=== PATIENT | male | born 1960 | race Caucasian/White ===

== ENCOUNTER 2019-01-27 23:49 | Inpatient (IN) | payer OTHER ==
[2019-01-28] MEDS ORDERED: CLOPIDOGREL 75 MG TAB PO STA
[2019-01-28] MEDS ORDERED: ATORVASTATIN 40 MG TAB PO STA (00:02)
--- NOTE | 2019-01-28 00:04 | ED ---
General Adult HPI - General Chief complaint: Chest Pain Stated complaint: stemi Time Seen by Provider: 01/27/19 23:58 Source: patient, EMS, RN notes reviewed Mode of arrival: EMS Limitations: no limitations - History of Present Illness Initial comments: Chief complaint and history of present illness this is a 58-year-old male was sent from [facility] because of an acute anteroseptal infarct. While that facility the patient received heparin, aspirin, nitroglycerin and morphine. Around emergency room he was given Plavix and Lipitor here. The patient continues have discomfort. Patient reports the pain comes and goes. Initially the discomfort started at 6:30 PM diaphoretic and retrosternal to the left side of the chest. The patient then went to [facility] at approximately 9 PM and EKG showed evidence of acute NH. The ER physician there spoke with Dr. Carlos PATIENT for transfer here to the emergency room. Currently the patient is being held in emergency room until the cardiac Bench Worker Apprentice is available. Is currently occupied by the patient having cardiac cath. - Related Data Allergies Allergy/AdvReac Type Severity Reaction Status Date / Time Penicillins Allergy Unknown Verified 01/27/19 23:59 Review of Systems ROS Statement: Those systems with pertinent positive or pertinent negative responses have been documented in the HPI. Review of systems. Patient denies any headache or visual acuity changes he has on-again off-again chest pain increases when he talks. Most on the left side. No longer diaphoretic going was initially. No radiation of pain. No GI/ complaints no neuro deficits. The patient's alert and oriented answer questions appropriately. Patient reports she's never had chest pain like this. Denies any previous heart issues. Patient denies any chronic medical problems. Surgeries patient had significant abdominal surgery within his country of origin, in [place]. He did not answer what kind of surgery was done. Family history noncontributory. ALLERGIES noted above penicillins which causes a rash. ROS Other: All systems not noted in ROS Statement are negative. Past Medical History Past Medical History: No Reported History History of Any Multi-Drug Resistant Organisms: None Reported Additional Past Surgical History / Comment(s): bilateral knee, abd sx when child Past Psychological History: No Psychological Hx Reported Smoking Status: Current every day smoker Past Alcohol Use History: Occasional Past Drug Use History: None Reported General Exam - General Exam Comments Initial Comments: General: The patient is awake and alert, transferred here from her [facility] for cardiac catheterization for acute STEMI. Temperature 98.9 pulse 105 respiratory rate 18 pulse ox 97% room air blood pressure 120/78 Eye: Pupils are equal, round and reactive to light, extra-ocular movements are intact; there is normal conjunctiva bilaterally. No signs of icterus. Ears, nose, mouth and throat: There are moist mucous membranes and no oral lesions. Neck: The neck is supple, there is no tenderness Cardiovascular: There is a regular rate and rhythm. No murmur, rub or gallop is appreciated. Patient's EKG continues to show acute anteroseptal infarct with ST elevation, patient's chest pain continues but significantly less than a was initially. Respiratory: Lungs are clear to auscultation, respirations are non-labored, breath sounds are equal. No wheezes, stridor, rales, or rhonchi. Gastrointestinal: Soft, non-distended, non-tender abdomen without masses or organomegaly noted. There is no rebound or guarding present. No CVA tenderness. Bowel sounds are unremarkable. Large suprapubic healed abdominal surgical wound. Back: There is no tenderness to palpation in the midline. There is no obvious deformity. No rashes noted. Musculoskeletal: Normal ROM, no tenderness, There is no pedal edema. There is no calf tenderness or swelling. Sensation intact. Pulses equal bilaterally 2+. Neurological: CN II-XII intact, There are no obvious motor or sensory deficits. Coordination appears grossly intact. Speech is normal. No neuro deficits Skin: Skin is warm and dry and no rashes or lesions are noted. Psychiatric: Cooperative, appropriate mood & affect, normal judgment. Limitations: no limitations Course Vital Signs 01/27/19 01/27/19 01/28/19 23:52 23:53 00:00 Temperature 98.9 F Pulse Rate 105 H 112 H 109 H Respiratory 18 19 8 L Rate Blood Pressure 120/78 120/78 O2 Sat by Pulse 97 97 99 Oximetry EKG Findings - EKG Comments: EKG Findings:: EKG was done and reviewed at 2355 showing sinus tachycardia with occasional PVC and ST elevation in anterolateral lateral leads. Rate 104 SC interval is 156 QRS 124 QT 370 QTc 46. This EKG was similar to 1 done at the [facility] showing acute anterior lateral NH. Dr. England Medical Decision Making - Medical Decision Making To call decision making; this is a 58-year-old male sent for [facility] because of acute anterolateral NH. The patient's been stable upon arrival and remains chest pain-free except for occasional short episodes of discomfort. Chest x-ray is done reviewed radiologist his impression is is no well-defined airspace disease at the right lower lobe. Linear opacities in the retrocardiac region probably represent subsegmental atelectasis. Normal mariel and cardiomediastinal silhouette. Normal trachea. No pleural effusion or pneumothorax. Impression; ill-defined airspace disease at the right lower lobe. Consider atelectasis versus infiltrate. Patient is afebrile, denies cough. Lungs are essentially clear to auscultation. Dr. England . - Lab Data Result diagrams: 01/27/19 23:57 01/27/19 23:57 Lab Results 01/27/19 01/27/19 01/27/19 Range/Units 23:57 23:57 23:57 WBC 17.0 H (3.8-10.6) k/uL RBC 4.69 (4.30-5.90) m/uL Hgb 14.3 (13.0-17.5) gm/dL Hct 45.8 (39.0-53.0) % MCV 97.6 (80.0-100.0) fL MCH 30.5 (25.0-35.0) pg MCHC 31.3 (31.0-37.0) g/dL RDW 13.2 (11.5-15.5) % Plt Count 199 (150-450) k/uL PT 10.4 (9.0-12.0) sec INR 1.0 (<1.2) APTT 38.9 H (22.0-30.0) sec Sodium 140 (137-145) mmol/L Potassium 3.5 (3.5-5.1) mmol/L Chloride 107 (98-107) mmol/L Carbon Dioxide 23 (22-30) mmol/L Anion Gap 10 mmol/L BUN 20 (9-20) mg/dL Creatinine 0.84 (0.66-1.25) mg/dL Est GFR (CKD-EPI)AfAm >90 (>60 ml/min/1.73 sqM) Est GFR (CKD-EPI)NonAf >90 (>60 ml/min/1.73 sqM) Glucose 177 H (74-99) mg/dL Calcium 9.6 (8.4-10.2) mg/dL Total Bilirubin 0.7 (0.2-1.3) mg/dL AST 57 (17-59) U/L ALT 67 (21-72) U/L Alkaline Phosphatase 91 (38-126) U/L Total Creatine Kinase (55-170) U/L Total Protein 7.3 (6.3-8.2) g/dL Albumin 4.2 (3.5-5.0) g/dL 01/27/19 Range/Units 23:57 WBC (3.8-10.6) k/uL RBC (4.30-5.90) m/uL Hgb (13.0-17.5) gm/dL Hct (39.0-53.0) % MCV (80.0-100.0) fL MCH (25.0-35.0) pg MCHC (31.0-37.0) g/dL RDW (11.5-15.5) % Plt Count (150-450) k/uL PT (9.0-12.0) sec INR (<1.2) APTT (22.0-30.0) sec Sodium (137-145) mmol/L Potassium (3.5-5.1) mmol/L Chloride (98-107) mmol/L Carbon Dioxide (22-30) mmol/L Anion Gap mmol/L BUN (9-20) mg/dL Creatinine (0.66-1.25) mg/dL Est GFR (CKD-EPI)AfAm (>60 ml/min/1.73 sqM) Est GFR (CKD-EPI)NonAf (>60 ml/min/1.73 sqM) Glucose (74-99) mg/dL Calcium (8.4-10.2) mg/dL Total Bilirubin (0.2-1.3) mg/dL AST (17-59) U/L ALT (21-72) U/L Alkaline Phosphatase (38-126) U/L Total Creatine Kinase 171 H (55-170) U/L Total Protein (6.3-8.2) g/dL Albumin (3.5-5.0) g/dL Disposition Clinical Impression: ST elevation myocardial infarction (STEMI) Disposition: ADMITTED IP TO THIS HOSP Condition: Serious Is patient prescribed a controlled substance at d/c from ED?: No Referrals: Art Younger MD [Primary Care Provider] - 1-2 days
[2019-01-28 00:10] LABS: HCT 45.8 % (39.0-53.0); HGB 14.3 gm/dL (13.0-17.5); MCH 30.5 pg (25.0-35.0); MCHC 31.3 g/dL (31.0-37.0); MCV 97.6 fL (80.0-100.0); Mean Platelet Volume 6.8; Platelet Count 199 k/uL (150-450); RBC 4.69 m/uL (4.30-5.90); RDW 13.2 % (11.5-15.5)
[2019-01-28 00:14] LABS: ALT 67 U/L (21-72); AST 57 U/L (17-59); Albumin 4.2 g/dL (3.5-5.0); Alkaline Phosphatase 91 U/L (38-126); Anion Gap 10 mmol/L; Blood Urea Nitrogen 20 mg/dL (9-20); Calcium 9.6 mg/dL (8.4-10.2); Carbon Dioxide 23 mmol/L (22-30); Chloride 107 mmol/L (98-107); Glucose 177 mg/dL (74-99); Potassium 3.5 mmol/L (3.5-5.1); Sodium 140 mmol/L (137-145); Total Bilirubin 0.7 mg/dL (0.2-1.3); Total Protein 7.3 g/dL (6.3-8.2)
[2019-01-28] MEDS ORDERED: NITROGLYCERIN-D5W PMX 50 MG in DEXTROSE/WATER 1 250ML.BAG IV ONE (00:17)
--- NOTE | 2019-01-28 00:19 | XR ---
EXAM: XR Chest, 1 View CLINICAL HISTORY: ITS.REASON XR Reason: chest pain TECHNIQUE: Frontal view of the chest. COMPARISON: No relevant prior studies available. FINDINGS: Lungs: Ill-defined airspace disease at the right lower lobe. Linear opacities in the retrocardiac region probably represent subsegmental atelectasis. Normal mariel and cardiomediastinal silhouette. Normal trachea. Pleural space: No pleural effusion or pneumothorax. Heart: See above. Mediastinum: See above. Bones/joints: Bones are unremarkable for age. IMPRESSION: Ill-defined airspace disease at the right lower lobe. Consider atelectasis versus infiltrate.
[2019-01-28 00:22] LABS: Partial Thromboplastin Time 38.9 sec (22.0-30.0); Prothrombin Time 10.4 sec (9.0-12.0)
[2019-01-28] MEDS: HEPARIN SOD,PORK IN 0.45% NACL 25,000 UNIT in 0.45% NACL 1 250ML.BAG IV SCH ×2 (00:30→23:29)
[2019-01-28 00:37] LABS: Creatine Kinase MB 13.6 ng/mL (0.0-2.4)
[2019-01-28] MEDS: SODIUM CHLORIDE 0.9% 1,000 ML IV STA ×2 (00:42→02:57)
[2019-01-28 00:45] LABS: Troponin I 0.628 ng/mL (0.000-0.034)
[2019-01-28 00:57] LABS: Band Neutrophils % 13 %; Lymphocytes # (M) 1.19 k/uL (1.0-4.8); Monocytes # (M) 0.85 k/uL (0-1.0); Neutrophils % (M) 75 %; Nucleated Red Blood Cells 0 /100 WBC (0-0); Total Cells Counted 100
[2019-01-28] MEDS ORDERED: fentaNYL (PF) 50 MCG/ML 2 ML AMP ONE (01:02)
[2019-01-28] MEDS ORDERED: LIDOCAINE 1% INJ 10MG/ML (20 ML MDV) ONE (01:02)
[2019-01-28] MEDS ORDERED: fentaNYL (PF) 50 MCG/ML 2 ML AMP IV ONE (01:07)
[2019-01-28] MEDS ORDERED: MIDAZOLAM 2 MG/2 ML VIAL IV ONE (01:07)
[2019-01-28] MEDS ORDERED: LIDOCAINE 1% INJ 10MG/ML (20 ML MDV) SQ ONE (01:07)
[2019-01-28] MEDS ORDERED: BIVALIRUDIN BOLUS 250 MG/50 ML IV ONE (01:17)
[2019-01-28] MEDS ORDERED: IV FLUID CONTINUATION 800 ML IV ONE (01:18)
[2019-01-28] MEDS ORDERED: BIVALIRUDIN 250 MG in SODIUM CHLORIDE 0.9% 37 ML IV ONE (01:18)
[2019-01-28] MEDS ORDERED: METOPROLOL TARTRATE 5 MG/5 ML VIAL IVP ONE (01:22)
[2019-01-28] MEDS ORDERED: NITROGLYCERIN 1000MCG/10ML SYRINGE INTRACORON ONE (01:24)
[2019-01-28] MEDS ORDERED: HYDROmorphone 2 MG/ML 1 ML SYRINGE IVP ONE (01:25)
[2019-01-28] MEDS ORDERED: NOREPINEPHRINE 4 MG in SODIUM CHLORIDE 0.9% 250 ML IV ONE (01:39)
[2019-01-28] MEDS ORDERED: niCARdipine Syringe (1,000 mcg/10 mL) INTRACORON ONE (01:41)
[2019-01-28] MEDS ORDERED: IOPAMIDOL-370 125ML BTL INJ ONE (01:44)
[2019-01-28] MEDS ORDERED: FUROSEMIDE 10 MG/ML 4 ML VIAL ONE (01:50)
[2019-01-28] MEDS ORDERED: FUROSEMIDE 10 MG/ML 4 ML VIAL IV ONE (01:53)
[2019-01-28] MEDS ORDERED: IOPAMIDOL-370 100ML BTL INJ ONE (01:53)
[2019-01-28] MEDS ORDERED: ATROPINE SULFATE 0.1 MG/ML 10ML SYRINGE IV PRN (02:00)
[2019-01-28] MEDS ORDERED: MAG HYDROX/AL HYDROX/SIMETH 30 ML CUP PO PRN (02:00)
[2019-01-28] MEDS ORDERED: RX INFO: IV CONTRAST WAS GIVEN 1 EACH MISC MISCELLANE PRN (02:00)
[2019-01-28] MEDS ORDERED: ZOLPIDEM 5 MG TAB PO PRN (02:00)
[2019-01-28] MEDS ORDERED: SODIUM CHLORIDE 0.9% 1,000 ML IV SCH (02:00)
[2019-01-28] MEDS ORDERED: NITROGLYCERIN SL TABS 0.4 MG TAB SUBLINGUAL PRN (02:00)
--- NOTE | 2019-01-28 02:07 | P.CRDCN ---
History of Present Illness Consult date: 01/28/19 Chief complaint: Chest pain History of present illness: This is a pleasant 58-year-old gentleman with a past medical history significant for hypertension as well as significant history of smoking who was transferred from the emergency room at [facility] to [facility] for further management of acute anterior ST patient myocardial infarction. He was in his usual state of health until earlier today when he was sitting home watching TV and suddenly developed an episode of cold sweats. Subsequently he started experiencing chest discomfort, across the chest, as a burning sensation, without any radiation to the arm or neck or shoulders or jaw. Because of that he decided to go to the emergency room. In the ER he was found to be in acute anterior ST patient myocardial infarction. 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 He underwent successful aspiration thrombectomy as well as successful stenting of the mid left anterior descending artery using 1 drug-eluting stent with a good angiographic results by the end and without any complication. Also the patient was found to have critical disease involving the ostial of ramus intermedius coronary artery. By the end of the procedure, he was chest pain-free. He was hemodynamically slightly unstable with a low blood pressure and he was on a small dose of Sudafed. We were trying to come down with the Levaquin. By the end of the procedure. Please note that the patient has significant history of smoking. He smoked about 1.5 pack of cigarettes a very vague. Past Medical History Past Medical History: No Reported History History of Any Multi-Drug Resistant Organisms: None Reported Additional Past Surgical History / Comment(s): bilateral knee, abd sx when child Past Psychological History: No Psychological Hx Reported Smoking Status: Current every day smoker Past Alcohol Use History: Occasional Past Drug Use History: None Reported Medications and Allergies Allergies Allergy/AdvReac Type Severity Reaction Status Date / Time Penicillins Allergy Unknown Verified 01/27/19 23:59 Physical Exam Vitals: Vital Signs Temp Pulse Resp BP Pulse Ox 01/28/19 00:00 109 H 8 L 120/78 99 01/27/19 23:53 112 H 19 97 01/27/19 23:52 98.9 F 105 H 18 120/78 97 Intake and Output 01/27/19 01/27/19 01/28/19 14:59 22:59 06:59 Intake Total 285 Balance 285 Intake: IV 285 Other: Weight 85.457 kg - Constitutional General appearance: no acute distress - Respiratory Respiratory: bilateral: CTA - Cardiovascular Rhythm: regular Heart sounds: normal: S1, S2 Results 01/27/19 23:57 01/27/19 23:57 Cardiac Enzymes 01/27/19 01/27/19 Range/Units 23:57 23:57 AST 57 (17-59) U/L CK-MB (CK-2) 13.6 H (0.0-2.4) ng/mL Troponin I 0.628 H* (0.000-0.034) ng/mL Coagulation 01/27/19 Range/Units 23:57 PT 10.4 (9.0-12.0) sec APTT 38.9 H (22.0-30.0) sec CBC 01/27/19 Range/Units 23:57 WBC 17.0 H (3.8-10.6) k/uL RBC 4.69 (4.30-5.90) m/uL Hgb 14.3 (13.0-17.5) gm/dL Hct 45.8 (39.0-53.0) % Plt Count 199 (150-450) k/uL Comprehensive Metabolic Panel 01/27/19 Range/Units 23:57 Sodium 140 (137-145) mmol/L Potassium 3.5 (3.5-5.1) mmol/L Chloride 107 (98-107) mmol/L Carbon Dioxide 23 (22-30) mmol/L BUN 20 (9-20) mg/dL Creatinine 0.84 (0.66-1.25) mg/dL Glucose 177 H (74-99) mg/dL Calcium 9.6 (8.4-10.2) mg/dL AST 57 (17-59) U/L ALT 67 (21-72) U/L Alkaline Phosphatase 91 (38-126) U/L Total Protein 7.3 (6.3-8.2) g/dL Albumin 4.2 (3.5-5.0) g/dL Current Medications Generic Name Dose Route Start Last Admin Trade Name Freq PRN Reason Stop Dose Admin Nitroglycerin/Dextrose 50 mg/ 250 mls @ 3 mls/hr 01/28/19 00:17 01/28/19 00:46 IV Solution IV 01/29/19 00:16 10 mcg/min .Q24H ONE 3 mls/hr Administration Protocol 10 MCG/MIN Heparin Sodium/Sodium Chloride 250 mls @ 9.4 mls/hr 01/28/19 00:15 01/28/19 00:30 25,000 unit/ Sodium Chloride IV 11 units/kg/hr .Q24H ABIGAIL 9.4 mls/hr Administration Protocol 11 UNITS/KG/HR Sodium Chloride 1,000 mls @ 20 mls/hr 01/28/19 00:15 01/28/19 00:42 Saline 0.9% IV 01/29/19 00:14 20 mls/hr .Q24H STA Administration Intake and Output 01/27/19 01/27/19 01/28/19 14:59 22:59 06:59 Intake Total 285 Balance 285 Intake: IV 285 Other: Weight 85.457 kg Patient Weight 01/28/19 06:59 Weight 85.457 kg 01/27/19 23:57 01/27/19 23:57 Assessment and Plan Assessment: Assessment #[address] patient myocardial infarction #2 status post a stenting of the left anterior descending artery #3 critical disease involving the ostial of ramus intermedius #4 marginally low blood pressure #5 significant history of smoking Plan #1 dual antiplatelet therapy #2 aggressive cholesterol control #3 risk factors modifications #4 anti-ischemic medications #5 obtain an echocardiogram was Doppler #6 follow-up with the patient. Thank you for allowing us participate in his care
[2019-01-28 02:57] VITALS: BMI 30.4
[2019-01-28 02:57] LABS: Glucose,Whole Blood 187 mg/dL (75-99)
[2019-01-28] MEDS ORDERED: NALOXONE 0.4 MG/ML 1 ML VIAL IV PRN (03:21)
[2019-01-28 05:09] LABS: Basophils % (A) 0 %; Eosinophils % (A) 0 %; HCT 43.4 % (39.0-53.0); HGB 13.6 gm/dL (13.0-17.5); Lymphocytes # (A) 0.4 k/uL (1.0-4.8); Lymphocytes % (A) 3 %; MCH 31.2 pg (25.0-35.0); MCHC 31.3 g/dL (31.0-37.0); MCV 99.9 fL (80.0-100.0); Mean Platelet Volume 6.9; Monocytes # (A) 0.4 k/uL (0-1.0); Monocytes % (A) 2 %; Neutrophils # (A) 16.6 k/uL (1.3-7.7); Neutrophils % (A) 94 %; Platelet Count 188 k/uL (150-450); RBC 4.34 m/uL (4.30-5.90); RDW 13.4 % (11.5-15.5); WBC 17.6 k/uL (3.8-10.6)
[2019-01-28 05:12] LABS: Anion Gap 10 mmol/L; Blood Urea Nitrogen 17 mg/dL (9-20); Calcium 8.9 mg/dL (8.4-10.2); Carbon Dioxide 22 mmol/L (22-30); Chloride 105 mmol/L (98-107); Glucose 222 mg/dL (74-99); Magnesium 1.7 mg/dL (1.6-2.3); Phosphorus 3.1 mg/dL (2.5-4.5); Potassium 4.1 mmol/L (3.5-5.1); Sodium 137 mmol/L (137-145)
[2019-01-28] MEDS: MAGNESIUM SULFATE-D5W PMX 1 GM in DEXTROSE/WATER 1 100ML.BAG IVPB SCH ×2 (07:00→08:43)
[2019-01-28 07:07] LABS: Glucose,Whole Blood 193 mg/dL (75-99)
--- NOTE | 2019-01-28 07:43 | CC ---
CARDIAC CATHETERIZATION REPORT CARDIAC CATHETERIZATION AND PERCUTANEOUS CORONARY INTERVENTION DATE OF SERVICE: January 28, 2019 PERFORMING PHYSICIAN: Josué Gomez M.D., electrical tests supervisor. PROCEDURE PERFORMED: 1. Selective right and left coronary angiogram. 2. Left heart catheterization. 3. Successful stenting of the mid left anterior descending artery using 3.0 x 33 mm Xience drug-eluting stent with an excellent angiographic results and reduction of stenosis from 100% to 0%. 4. An aspiration thrombectomy from the left anterior descending artery. INDICATION: This is a 58-year-old gentleman with history of hypertension and significant history of smoking who presented to the emergency room at [facility] with chest discomfort and was diagnosed with acute anterior ST-elevation myocardial infarction. He was transferred emergently to [facility] for emergent heart catheterization and percutaneous coronary intervention. APPROACH: Right common femoral artery. COMPLICATION: None. LEVEL OF SEDATION: Moderate with sedation length of 46 minutes. PROCEDURE DESCRIPTION: After obtaining an informed consent, the patient was brought to the laboratory equipment installer. The right common femoral artery was cannulated using micropuncture technique and a micropuncture wire passed easily then I placed a 6-Honduran sheath in the right common femoral artery. After that I did engage the left main using an XP35 LAD guide. 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 I did intervene on the LAD. After that, I did selective right coronary angiogram using JR4 catheter. Left heart catheterization was performed using 6-Honduran pigtail catheter. The procedure was completed without any complication. SELECTIVE CORONARY ANGIOGRAM: 1. The right coronary artery is a large caliber vessel and it is a dominant vessel. The proximal RCA appeared to be angiographically normal. The mid RCA has mild disease only and RCA distally appeared to have mild disease only and bifurcates into PDA and PLV branches, both appeared to be angiographically normal. 2. The left main is angiographically normal. It bifurcates into left circumflex, ramus intermedius, and left anterior descending artery. 3. The left circumflex is a large caliber vessel and is a codominant vessel. The left circumflex itself appeared to have mild disease only. In the very proximal portion, it gives rise into OM 1, which appears to be angiographically normal. 4. The ramus intermedius has a critical lesion appeared to be from the origin from the left main. 5. The LAD is 100% occluded in the midportion. HEMODYNAMICS: The left ventricular end-diastolic pressure was 30 mmHg without significant gradient across the aortic valve. PCI OF THE LAD: Anticoagulation was initiated using Angiomax. Subsequently I did after engaging the left main using an XP35 LAD guide, I did cross the acute total occlusion of the mid LAD using a run-through wire. After that I did aspiration thrombectomy with extraction of thrombus. After that I did balloon angioplasty using 2.5 x 12 mm balloon before I deployed 3.0 x 33 mm Xience drug-eluting stent where the stent was positioned under fluoroscopy guidance and deployed under 14 atmospheres for 20 seconds with the following angiogram showing excellent angiographic results and the procedure was completed without any complication. CONCLUSION: 1. Acute anterior ST-elevation myocardial infarction. 2. Acute total occlusion of the mid left anterior descending artery. 3. Successful stenting of the mid left anterior descending artery as described above. 4. Critical the disease involving the ramus intermedius coronary artery. POSTPROCEDURE MANAGEMENT: 1. Dual antiplatelet therapy. 2. Risk factors modifications. 3. Follow up with the patient. MMODL / IJN: [id number] /
[2019-01-28] MEDS: ASPIRIN 325 MG TAB PO SCH (08:43)
[2019-01-28] MEDS: METOPROLOL TARTRATE 25 MG TAB PO SCH ×2 (08:43→20:00)
[2019-01-28 12:31] LABS: Glucose,Whole Blood 139 mg/dL (75-99)
[2019-01-28 13:48] LABS: Cholesterol 166 mg/dL (<200); HDL Cholesterol 42 mg/dL (40-60); LDL Cholesterol,Calculated 102 mg/dL (0-99); Triglycerides 110 mg/dL (<150)
[2019-01-28 17:33] LABS: Glucose,Whole Blood 106 mg/dL (75-99)
--- NOTE | 2019-01-28 18:19 | HP ---
HISTORY AND PHYSICAL CHIEF COMPLAINT: Chest pain. HISTORY OF PRESENT ILLNESS: This is the first admission of this 58-year-old gentleman who came to the emergency room with a history of acute onset of sharp, burning anterior chest pain associated with shortness of breath and diaphoresis. He was determined to have an acute OK and was taken to the lab animal technologist, where he was found to have occlusion of the LAD, and this was opened and stented. REVIEW OF SYSTEMS: He has had no CVAs, hypertension, chest pain other than that, cough, hemoptysis, shortness of breath, murmurs, rheumatic fever, orthopnea, PND, abdominal pain, vomiting, diarrhea, melena, hematochezia, jaundice, hepatitis, cirrhosis, hematuria, renal failure, frequency, urgency, dysuria, etc. Past medical history, family history, and personal and social histories reveal that he is not on any medication. He is ALLERGIC TO PENICILLIN. He has had a procedure on his knee. He smokes about a pack of cigarettes a day. PHYSICAL EXAMINATION: Blood pressure 140/92 with a pulse of 98, respirations of 34, and he is afebrile. In general, he appeared to be well developed, well nourished, in no acute distress. Skin color was normal. Skin was warm, dry. Lymph nodes were not enlarged. Head, ears, eyes, nose, mouth and throat were normal. Neck veins were not distended. Thyroid was not enlarged. Chest was clear. Cardiac exam was normal. Abdomen was soft, nontender. Extremities were normal. Neurologically he was intact. IMPRESSION: Acute myocardial infarction. PLAN: 1. Bed rest. 2. IV fluids. 3. Cardiology consult. 4. Cardiac cath with stenting of the RCA. 5. Lipid profile. 6. Hemoglobin A1c. 7. Counseled to stop smoking, lose weight and exercise. MMODL / IJN: [id number] /
--- NOTE | 2019-01-28 19:45 | P.PN ---
Subjective Patient is doing well. No chest discomfort he is able to lie flat in bed. No dizziness lightheadedness. Access sites have healed well Blood pressure 190 no 87 mmHg respirations 20 pulse rate in the 90s afebrile Breath sounds are clear no rhonchi no crackles Heart sounds S1 and S2 are normal Abdomen soft nontender Extremities are warm no edema Impression Acute myocardial infarction status post coronary stenting Severe LV dysfunction with a large anterior wall infarct on 2-D echo Continue aspirin Plavix statins Continue beta blockers Tomorrow I will try maximizing his medications as long as blood pressure can tolerate it Objective - Vital Signs Vital signs: Vital Signs Temp 98.6 F 01/28/19 16:00 Pulse 96 01/28/19 19:00 Resp 21 01/28/19 19:00 BP 119/87 01/28/19 19:00 Pulse Ox 94 L 01/28/19 19:00 Intake & Output 01/28/19 01/28/19 01/29/19 06:59 18:59 06:59 Intake Total 585 1375 Output Total 250 0 Balance 585 1125 0 Weight 85.457 kg 85.457 kg Intake: IV 585 655 Magnesium Sulfate-D5w Pmx 200 1 gm In Dextrose/Water 1 100ml.bag @ 100 mls/hr IVPB Q1H ABIGAIL Rx#: [id number] Sodium Chloride 0.9% 1, 300 455 000 ml @ 75 mls/hr IV . [id number] ABIGAIL Rx#:[id number] Oral 720 Output: Urine 250 0 Other: Voiding Method Urinal # Voids 1 1 0 - Labs CBC & Chem 7: 01/28/19 04:44 01/28/19 04:44 Labs: Abnormal Lab Results - Last 24 Hours (Table) 01/27/19 01/27/19 01/27/19 Range/Units 23:57 23:57 23:57 WBC 17.0 H (3.8-10.6) k/uL Neutrophils # (1.3-7.7) k/uL Neutrophils # (Manual) 14.90 H (1.3-7.7) k/uL Lymphocytes # (1.0-4.8) k/uL APTT 38.9 H (22.0-30.0) sec Glucose 177 H (74-99) mg/dL POC Glucose (mg/dL) (75-99) mg/dL Total Creatine Kinase (55-170) U/L CK-MB (CK-2) (0.0-2.4) ng/mL Troponin I (0.000-0.034) ng/mL LDL Cholesterol, Calc (0-99) mg/dL 01/27/19 01/28/19 01/28/19 Range/Units 23:57 02:20 04:44 WBC 17.6 H (3.8-10.6) k/uL Neutrophils # 16.6 H (1.3-7.7) k/uL Neutrophils # (Manual) (1.3-7.7) k/uL Lymphocytes # 0.4 L (1.0-4.8) k/uL APTT (22.0-30.0) sec Glucose (74-99) mg/dL POC Glucose (mg/dL) 187 H (75-99) mg/dL Total Creatine Kinase 171 H (55-170) U/L CK-MB (CK-2) 13.6 H (0.0-2.4) ng/mL Troponin I 0.628 H* (0.000-0.034) ng/mL LDL Cholesterol, Calc (0-99) mg/dL 01/28/19 01/28/19 01/28/19 Range/Units 04:44 04:44 07:03 WBC (3.8-10.6) k/uL Neutrophils # (1.3-7.7) k/uL Neutrophils # (Manual) (1.3-7.7) k/uL Lymphocytes # (1.0-4.8) k/uL APTT (22.0-30.0) sec Glucose 222 H (74-99) mg/dL POC Glucose (mg/dL) 193 H (75-99) mg/dL Total Creatine Kinase (55-170) U/L CK-MB (CK-2) (0.0-2.4) ng/mL Troponin I (0.000-0.034) ng/mL LDL Cholesterol, Calc 102 H (0-99) mg/dL 01/28/19 01/28/19 Range/Units 12:17 17:29 WBC (3.8-10.6) k/uL Neutrophils # (1.3-7.7) k/uL Neutrophils # (Manual) (1.3-7.7) k/uL Lymphocytes # (1.0-4.8) k/uL APTT (22.0-30.0) sec Glucose (74-99) mg/dL POC Glucose (mg/dL) 139 H 106 H (75-99) mg/dL Total Creatine Kinase (55-170) U/L CK-MB (CK-2) (0.0-2.4) ng/mL Troponin I (0.000-0.034) ng/mL LDL Cholesterol, Calc (0-99) mg/dL
[2019-01-28] MEDS: ATORVASTATIN 80 MG TAB PO SCH (20:00)
[2019-01-28 22:57] LABS: Hemoglobin A1C 5.7 % (4.0-6.0)
[2019-01-29] MEDS ORDERED: CLOPIDOGREL 75 MG TAB PO SCH (02:02)
[2019-01-29 05:42] LABS: Basophils % (A) 0 %; Eosinophils % (A) 0 %; HCT 42.6 % (39.0-53.0); HGB 13.7 gm/dL (13.0-17.5); Lymphocytes # (A) 1.4 k/uL (1.0-4.8); Lymphocytes % (A) 11 %; MCH 31.2 pg (25.0-35.0); MCHC 32.3 g/dL (31.0-37.0); MCV 96.6 fL (80.0-100.0); Mean Platelet Volume 7.3; Monocytes # (A) 0.6 k/uL (0-1.0); Monocytes % (A) 5 %; Neutrophils # (A) 10.6 k/uL (1.3-7.7); Neutrophils % (A) 84 %; Platelet Count 167 k/uL (150-450); RDW 13.4 % (11.5-15.5); WBC 12.7 k/uL (3.8-10.6)
[2019-01-29 05:53] LABS: Anion Gap 7 mmol/L; Blood Urea Nitrogen 15 mg/dL (9-20); Calcium 8.7 mg/dL (8.4-10.2); Carbon Dioxide 27 mmol/L (22-30); Chloride 102 mmol/L (98-107); Glucose 113 mg/dL (74-99); Magnesium 1.9 mg/dL (1.6-2.3); Phosphorus 2.2 mg/dL (2.5-4.5); Potassium 4.1 mmol/L (3.5-5.1); Sodium 136 mmol/L (137-145)
[2019-01-29] MEDS ORDERED: Phosphorus Replacement Protoco 1 EACH MISC MISCELLANE PRN (06:32)
[2019-01-29] MEDS: MAGNESIUM SULFATE-D5W PMX 1 GM in DEXTROSE/WATER 1 100ML.BAG IVPB SCH ×2 (06:44→08:10)
[2019-01-29] MEDS ORDERED: SODIUM PHOSPHATE 10 MMOL in SODIUM CHLORIDE 0.9% 250 ML IVPB ONE (07:00)
[2019-01-29 07:12] LABS: Glucose,Whole Blood 127 mg/dL (75-99)
[2019-01-29] MEDS: ASPIRIN 325 MG TAB PO SCH (08:11)
[2019-01-29] MEDS: CLOPIDOGREL 75 MG TAB PO SCH (08:11)
[2019-01-29] MEDS: METOPROLOL TARTRATE 25 MG TAB PO SCH (08:11)
[2019-01-29 11:36] LABS: Glucose,Whole Blood 113 mg/dL (75-99)
[2019-01-29] MEDS ORDERED: METOPROLOL TARTRATE 25 MG TAB PO STA (12:25)
--- NOTE | 2019-01-29 13:51 | P.PN ---
Subjective Patient is doing better. He denies any chest discomfort dizziness lightheadedness or palpitations. He wants to go home and I asked him not to do that Blood pressure 180/67 mmHg normal respirations pulse rate 89 beats a minute Breath sounds are clear no rhonchi no crackles Heart sounds are normal normal S1 normal S2 no murmurs or gallops no rub Abdomen is soft Except is warm Patient is ambulating in the room Blood pressure 120/77 mmHg and 118/67 mmHg Impression severe ischemic cardiopathy myopathy Recent large anterior wall infarct Plan Increase metoprolol to 50 g twice daily If his blood pressure remained stable then tomorrow we will start yadira inhibitors Start spironolactone Continue dual antiplatelet therapy with Plavix and aspirin Continue atorvastatin 80 mg by mouth daily line watch for any ventricular arrhythmias This patient needs to be monitored on telemetry and his medications maximized. Objective - Vital Signs Vital signs: Vital Signs Temp 98.9 F 01/29/19 08:00 Pulse 89 01/29/19 13:00 Resp 18 01/29/19 13:00 BP 118/67 01/29/19 13:00 Pulse Ox 95 01/29/19 12:00 Intake & Output 01/28/19 01/29/19 01/29/19 18:59 06:59 18:59 Intake Total 1375 850 Output Total 250 400 450 Balance 1125 -400 400 Weight 85.457 kg 85.1 kg Intake: IV 655 100 Magnesium Sulfate-D5w Pmx 200 100 1 gm In Dextrose/Water 1 100ml.bag @ 100 mls/hr IVPB Q1H ABIGAIL Rx#: [id number] Sodium Chloride 0.9% 1, 455 000 ml @ 75 mls/hr IV . [id number] ABIGAIL Rx#:[id number] Intake, IV Titration 300 Amount Magnesium Sulfate-D5w Pmx 100 1 gm In Dextrose/Water 1 100ml.bag @ 100 mls/hr IVPB Q1H ABIGAIL Rx#: [id number] Sodium Phosphate 10 mmol 200 In Sodium Chloride 0.9% 250 ml @ 125 mls/hr IVPB ONCE ONE Rx#:[id number] Oral 720 450 Output: Urine 250 400 450 Other: Voiding Method Toilet Toilet Toilet # Voids 1 0 0 # Bowel Movements 1 1 - Labs CBC & Chem 7: 01/29/19 04:13 01/29/19 04:13 Labs: Abnormal Lab Results - Last 24 Hours (Table) 01/28/19 01/29/19 01/29/19 Range/Units 17:29 04:13 04:13 WBC 12.7 H (3.8-10.6) k/uL Neutrophils # 10.6 H (1.3-7.7) k/uL Sodium 136 L (137-145) mmol/L Glucose 113 H (74-99) mg/dL POC Glucose (mg/dL) 106 H (75-99) mg/dL Phosphorus 2.2 L (2.5-4.5) mg/dL 01/29/19 01/29/19 Range/Units 07:08 11:32 WBC (3.8-10.6) k/uL Neutrophils # (1.3-7.7) k/uL Sodium (137-145) mmol/L Glucose (74-99) mg/dL POC Glucose (mg/dL) 127 H 113 H (75-99) mg/dL Phosphorus (2.5-4.5) mg/dL
[2019-01-29] MEDS: SPIRONOLACTONE 25 MG TAB PO SCH (14:26)
[2019-01-29] MEDS: METOPROLOL TARTRATE 50 MG TAB PO SCH (20:41)
[2019-01-29] MEDS: ATORVASTATIN 80 MG TAB PO SCH (20:41)
--- NOTE | 2019-01-29 21:56 | PN ---
PROGRESS NOTE DATE OF SERVICE: 01/29/2019 CHIEF COMPLAINT: Acute myocardial infarction. HISTORY OF PRESENT ILLNESS: This gentleman is doing well. He is comfortable, not have any problems. PHYSICAL EXAM: He is in sinus rhythm and blood pressure normal. Chest is clear. IMPRESSION: ST elevation myocardial infarction. PLAN: No change in program at this time and follow with Cardiology. MMODL / IJN: [id number] /
[2019-01-30] MEDS: HEPARIN SOD,PORK IN 0.45% NACL 25,000 UNIT in 0.45% NACL 1 250ML.BAG IV SCH (00:36)
[2019-01-30 05:26] LABS: Basophils % (A) 1 %; Eosinophils # (A) 0.2 k/uL (0-0.7); Eosinophils % (A) 3 %; HGB 12.9 gm/dL (13.0-17.5); Lymphocytes # (A) 2.1 k/uL (1.0-4.8); Lymphocytes % (A) 25 %; MCH 30.6 pg (25.0-35.0); MCHC 31.6 g/dL (31.0-37.0); MCV 96.9 fL (80.0-100.0); Mean Platelet Volume 7.3; Monocytes # (A) 0.5 k/uL (0-1.0); Monocytes % (A) 5 %; Neutrophils # (A) 5.4 k/uL (1.3-7.7); Neutrophils % (A) 65 %; Platelet Count 153 k/uL (150-450); RBC 4.22 m/uL (4.30-5.90); WBC 8.3 k/uL (3.8-10.6)
[2019-01-30 05:46] LABS: Anion Gap 5 mmol/L; Blood Urea Nitrogen 14 mg/dL (9-20); Calcium 8.6 mg/dL (8.4-10.2); Carbon Dioxide 29 mmol/L (22-30); Chloride 106 mmol/L (98-107); Glucose 95 mg/dL (74-99); Potassium 4.3 mmol/L (3.5-5.1); Sodium 140 mmol/L (137-145)
[2019-01-30] MEDS: CLOPIDOGREL 75 MG TAB PO SCH (08:37)
[2019-01-30] MEDS: ASPIRIN 325 MG TAB PO SCH (08:37)
[2019-01-30] MEDS: SPIRONOLACTONE 25 MG TAB PO SCH (08:38)
[2019-01-30] MEDS: METOPROLOL TARTRATE 50 MG TAB PO SCH ×2 (08:38→21:14)
--- NOTE | 2019-01-30 09:39 | CONS ---
CONSULTATION This is a 58-year-old gentleman who was admitted to hospital with acute myocardial infarction. He underwent emergent cardiac catheterization and angioplasty of mid LAD. This happened on 01/28/2019. Today patient is doing well and is free of symptoms. Denies chest pain, difficulty in breathing or palpitations. On exam, he is comfortable at rest. Vital signs are stable. There is no jugular venous distention. Chest exam reveals good air entry bilaterally. Heart exam reveals first and second heart sounds. No gallop. Abdomen is soft. Examination of extremities did not reveal any edema. Peripheral pulses are felt. Lab show that the hemoglobin is 12.9, platelet count is 153, creatinine is 0.96 MEDICATIONS: Patient is currently on aspirin, Lipitor, Plavix, Lopressor and Aldactone. I do not have an echo report in the chart. If one has not been done, we will obtain an echo on him. ASSESSMENT: Acute anterior wall myocardial infarction, status post catheterization and angioplasty of left anterior descending coronary artery. PLAN: Patient is doing well. He will continue with his current medications, and we should be able to discharge him home tomorrow. He can be transferred to telemetry. The patient has severe LV dysfunction secondary to a large anterior wall IA. MMODL / IJN: [id number] /
--- NOTE | 2019-01-30 17:06 | PN ---
PROGRESS NOTE CHIEF COMPLAINT: Status post VT. HISTORY OF PRESENT ILLNESS: This gentleman is doing well. He has had no pain, shortness of breath, etc. He is up and about. PHYSICAL EXAM: Chest is clear. Cardiac exam is normal. The abdomen is soft and nontender. Extremities are normal. IMPRESSION: Acute myocardial infarction. PLAN: He can be discharged when he is cleared by Cardiology, which may be tomorrow. MMODL / IJN: [id number] /
[2019-01-30] MEDS: ATORVASTATIN 80 MG TAB PO SCH (21:14)
[2019-01-31] MEDS: HEPARIN SOD,PORK IN 0.45% NACL 25,000 UNIT in 0.45% NACL 1 250ML.BAG IV SCH (03:04)
[2019-01-31] MEDS: ASPIRIN 325 MG TAB PO SCH (09:12)
[2019-01-31] MEDS: METOPROLOL TARTRATE 50 MG TAB PO SCH (09:12)
[2019-01-31] MEDS: SPIRONOLACTONE 25 MG TAB PO SCH (09:12)
[2019-01-31] MEDS: CLOPIDOGREL 75 MG TAB PO SCH (09:12)
[2019-01-31] MEDS ORDERED: LISINOPRIL 2.5 MG TAB PO SCH (09:30)
--- NOTE | 2019-01-31 10:42 | P.PN ---
Subjective This is a pleasant 58 showed male who is status post coronary artery stenting of the mid LAD with severe ischemic cardiomyopathy secondary to a large anterior wall myocardial infarction. He is seen and examined sitting up in the chair and is rather anxious to go home. He denies symptoms of chest discomfort, shortness of breath, dizziness or palpitations. Blood pressure 101/74 heart rate 88 afebrile maintaining oxygen saturation on room air. Laboratory data reviewed, WBC 8.3, hemoglobin 12.9, platelets 153, sodium 140, potassium 4.3, creatinine 0.96. GENERAL: Well-appearing, well-nourished and in no acute distress. NECK: Supple without JVD or thyromegaly. LUNGS: Breath sounds clear to auscultation bilaterally. Respiration equal and unlabored. No wheezes, rales or rhonchi. HEART: Regular rate and rhythm without murmurs, rubs or gallops. S1 and S2 heard. EXTREMITIES: Normal range of motion, no edema. No clubbing or cyanosis. Peripheral pulses intact. ASSESSMENT Acute myocardial infarction Coronary artery disease status post stent placement Severe ischemic cardiomyopathy Hypertension Dyslipidemia Chronic nicotine dependence PLAN Initiate on small dose of YORDAN inhibitor. Give first dose now and increase activity and ambulation around the unit. If he remains overall stable with no symptoms of dizziness he may be discharged home. We have recommended this patient stating the hospital for an additional day to watch for blood pressure fluctuations with these new medications however he is very adament about going home. He has been advised compliance with his medications and to quit smoking. follow up with Dr. Gomez in the office in 1 week. Nurse Practitioner note has been reviewed, I agree with a documented findings and plan of care. Patient was seen and examined. Objective - Vital Signs Vital signs: Vital Signs Temp 97.5 F L 01/31/19 04:00 Pulse 88 01/31/19 04:00 Resp 18 01/31/19 04:00 BP 101/74 01/31/19 04:00 Pulse Ox 96 01/31/19 04:00 Intake & Output 01/30/19 01/31/19 01/31/19 18:59 06:59 18:59 Intake Total 200 240 Balance 200 240 Weight 80.2 kg Intake: Oral 200 240 Other: Voiding Method Toilet Toilet # Voids 3 1 - Labs CBC & Chem 7: 01/30/19 05:16 01/30/19 05:16
[2019-01-31 11:24] VITALS: RESP 20; TEMP 97.2
[2019-01-31 15:07] VITALS: BP 120/69; PULSE 80
--- NOTE | 2019-01-31 16:22 | DS ---
DISCHARGE SUMMARY CHIEF COMPLAINT: Chest pain. HISTORY OF PRESENT ILLNESS AND PHYSICAL EXAM: Details of this man's history and physical can be found in the initial workup. LABORATORY STUDIES: While he was in the hospital, he had laboratory studies, details of which can be found in the laboratory section of his chart. COURSE IN HOSPITAL: After admission, he was placed on bedrest, started on intravenous fluids and had EKG and enzymes drawn. [facility]. He underwent angioplasty after which he did well. He had no significant problems with further chest pain, shortness of breath, arrhythmias, etc. He was doing well and it was felt that he could go home on the . He will go home on light activity about the house and cardiac diet. He will follow up with Cardiology and come to my office in several days for followup. FINAL DIAGNOSES: Acute myocardial infarction. OPERATIONS: Cardiac cath with stenting. CONSULT: Cardiology. He is improved. MMODL / IJN: [id number] /
[2019-01-31] MEDS ORDERED: METOPROLOL TARTRATE 25 MG TAB PO SCH (21:00)
== END 2019-01-31 15:51 | disposition home or self-care (01) | DRG 247 ==
LOC: EC 23:49 → 2SICU 01-28 01:55 → 3SCARD 01-30 18:36
PROVIDERS: ADMIT Family Medicine; ATTEND Family Medicine
PROC: 4A023N7 Measurement of Cardiac Sampling and Pressure, Left Heart, Percutaneous Approach (ICD-10-PCS; 2019-01-28)
PROC: B2111ZZ Fluoroscopy of Multiple Coronary Arteries using Low Osmolar Contrast (ICD-10-PCS; 2019-01-28)
PROC: B2151ZZ Fluoroscopy of Left Heart using Low Osmolar Contrast (ICD-10-PCS; 2019-01-28)
PROC: 027034Z Dilation of Coronary Artery, One Artery with Drug-eluting Intraluminal Device, Percutaneous Approach (ICD-10-PCS; principal; 2019-01-28 00:57)
PROC: 02C03ZZ Extirpation of Matter from Coronary Artery, One Artery, Percutaneous Approach (ICD-10-PCS; 2019-01-28 00:57)
DX: I21.09 ST elevation (STEMI) myocardial infarction involving other coronary artery of anterior wall (principal); J98.11 Atelectasis; I25.10 Atherosclerotic heart disease of native coronary artery without angina pectoris; F17.210 Nicotine dependence, cigarettes, uncomplicated; E78.5 Hyperlipidemia, unspecified; Z71.6 Tobacco abuse counseling; Z71.3 Dietary counseling and surveillance; I10 Essential (primary) hypertension; I25.2 Old myocardial infarction; I25.5 Ischemic cardiomyopathy; Z88.0 Allergy status to penicillin
CPT/HCPCS: 36415; 71045; 80048; 80053; 80061; 82550; 82553; 83036; 83735; 84100; 84484; 85025; 85610; 85730; 93306; 93458; 99285; C1874

== ENCOUNTER 2024-08-06 12:17 | Inpatient (IN) | payer MEDICARE, OTHER ==
--- NOTE | 2024-08-06 13:04 | ED ---
Arrhythmia/Palpitations HPI <Chico Rios - Last Filed: 08/07/24 15:23> - General Source: patient Mode of arrival: EMS <Audrey Hodge - Last Filed: 08/08/24 13:50> - General Chief Complaint: Arrhythmia/Palpitations Stated Complaint: Tachy Time Seen by Provider: 08/06/24 12:39 - History of Present Illness Initial Comments: 63-year-old male with a past medical history of hypertension, congestive heart failure, prior [place], presenting today as a transfer from [facility] on [address] for CHF exacerbation. Patient presented there today, per patient, for shortness of breath x 2 days. He denies chest pain to me however per notes from transferring facility patient also endorsed substernal chest pain at time of his assessment there. On arrival to that facility he was noted to be tachycardic, suspected to be in sinus tachycardia, per notes from transferring facility. He was noted to have difficulty in breathing, was given albuterol, IV steroids. Chest x-ray and ultrasound showed "B-lines and reduced ejection fraction" so patient was given IV Lasix as well. Patient was reported to have elevated BP and x-ray seemed to show signs of congestive heart failure, per notes from transferring facility. Patient requested transfer to this hospital as his paraffin plant sweater operator Dr. Medellin is here. Currently denies any chest pain, palpitations, dizziness, abdominal pain, nausea, vomiting, diarrhea. Denies alcohol use or illicit drug use. Denies recent fevers. Endorses exertional shortness of breath. Patient is a current smoker. He is not on anticoagulation or lasix at home. (Audrey Hodge) - Related Data Home Medications Medication Instructions Recorded Confirmed Aspirin EC [Ecotrin Low Dose] 81 mg PO BID 08/06/24 08/06/24 Metoprolol Tartrate [Lopressor] 25 mg PO BID 08/06/24 08/06/24 Previous Rx's Medication Instructions Recorded Atorvastatin [Lipitor] 80 mg PO HS #90 tab 01/31/19 Allergies Allergy/AdvReac Type Severity Reaction Status Date / Time Penicillins Allergy Unknown Verified 08/06/24 12:31 Review of Systems ROS Other: All systems not noted in ROS Statement are negative. <Chico Rios - Last Filed: 08/07/24 15:23> ROS Other: All systems not noted in ROS Statement are negative. <Audrey Hodge - Last Filed: 08/08/24 13:50> ROS Statement: Those systems with pertinent positive or pertinent negative responses have been documented in the HPI. Past Medical History Past Medical History: No Reported History, Myocardial Infarction ([place]) Additional Past Medical History / Comment(s): 1 stent to LAD(01/2019), History of Any Multi-Drug Resistant Organisms: None Reported Past Surgical History: Heart Catheterization With Stent Additional Past Surgical History / Comment(s): bilateral knee, abd sx when child , Past Psychological History: No Psychological Hx Reported Smoking Status: Current every day smoker Past Alcohol Use History: Occasional Past Drug Use History: None Reported - Past Family History Father Additional Family Medical History / Comment(s): father on dialysis <Audrey - Last Filed: 08/08/24 13:50> General Exam <Audrey - Last Filed: 08/08/24 13:50> - General Exam Comments Initial Comments: PE: CONSTITUTIONAL: No apparent distress, well appearing SKIN: Warm, dry, no jaundice, hives or petechiae EYES: Pupils are equally round, extraocular movements intact without nystagmus, clear conjunctiva, non-icteric sclera HENT: Normocephalic, atraumatic, moist mucus membranes, oropharynx clear without exudates NECK: , Full range of motion, normal appearance PULMONARY: Clear to auscultation without wheezes, rhonchi, or rales, normal excursion, no accessory muscle use and no stridor CARDIOVASCULAR: Tachycardia regular rhythm, normal S1 and S2. No appreciated murmurs, rubs or gallops. Strong radial pulses with intact distal perfusion. No lower extremity edema GASTROINTESTINAL: Soft, active bowel sounds throughout, non-tender, non- distended, no palpable masses, no rebound or guarding. No hepatosplenomegaly GENITOURINARY: MUSCULOSKELETAL: Extremities have no gross deformity, no edema, redness, or swelling. No calf swelling NEUROLOGIC:_a/o x 3, GCS 15, normal mentation and speech. Moves all extremities x 4 without motor or sensory deficit PSYCHIATRIC:_normal mood and affect, thought process is clear and linear (Audrey Hodge) Course Vital Signs 08/06/24 08/06/24 08/06/24 12:21 12:43 13:27 Temperature 98.3 F Pulse Rate 148 H 146 H Pulse Rate [ 142 H Car Groomer ] Respiratory 18 18 Rate Blood Pressure 115/97 111/89 Blood Pressure [Left Arm Sitting] O2 Sat by Pulse 98 97 Oximetry Fraction of Inspired Oxygen (FIO2) 08/06/24 08/06/24 08/06/24 13:35 14:26 15:37 Temperature Pulse Rate 140 H 138 H 137 H Pulse Rate [ Car Groomer ] Respiratory 18 20 18 Rate Blood Pressure 111/87 105/48 106/72 Blood Pressure [Left Arm Sitting] O2 Sat by Pulse 98 100 97 Oximetry Fraction of Inspired Oxygen (FIO2) 08/06/24 08/06/24 08/06/24 17:03 18:52 22:28 Temperature Pulse Rate 131 H 141 H 141 H Pulse Rate [ Car Groomer ] Respiratory 18 18 22 Rate Blood Pressure 94/79 113/86 113/80 Blood Pressure [Left Arm Sitting] O2 Sat by Pulse 98 97 Oximetry Fraction of Inspired Oxygen (FIO2) 08/07/24 08/07/24 08/07/24 02:30 04:00 04:15 Temperature Pulse Rate 128 H 137 H 138 H Pulse Rate [ Car Groomer ] Respiratory 18 18 Rate Blood Pressure 91/72 91/72 91/72 Blood Pressure [Left Arm Sitting] O2 Sat by Pulse 98 97 97 Oximetry Fraction of Inspired Oxygen (FIO2) 08/07/24 08/07/24 08/07/24 04:30 04:45 05:00 Temperature Pulse Rate 140 H 138 H 140 H Pulse Rate [ Car Groomer ] Respiratory Rate Blood Pressure 91/72 91/72 91/72 Blood Pressure [Left Arm Sitting] O2 Sat by Pulse 97 98 Oximetry Fraction of Inspired Oxygen (FIO2) 08/07/24 08/07/24 08/07/24 05:15 05:30 05:45 Temperature Pulse Rate 138 H 140 H 138 H Pulse Rate [ Car Groomer ] Respiratory Rate Blood Pressure 95/79 95/79 95/79 Blood Pressure [Left Arm Sitting] O2 Sat by Pulse 97 97 Oximetry Fraction of Inspired Oxygen (FIO2) 08/07/24 08/07/24 08/07/24 06:00 06:15 06:30 Temperature Pulse Rate 138 H 140 H 141 H Pulse Rate [ Car Groomer ] Respiratory 18 Rate Blood Pressure 95/79 111/95 111/95 Blood Pressure [Left Arm Sitting] O2 Sat by Pulse 94 L 99 98 Oximetry Fraction of Inspired Oxygen (FIO2) 08/07/24 08/07/24 08/07/24 06:45 07:00 07:15 Temperature Pulse Rate 141 H 140 H 140 H Pulse Rate [ Car Groomer ] Respiratory Rate Blood Pressure 111/95 117/85 119/93 Blood Pressure [Left Arm Sitting] O2 Sat by Pulse 98 97 96 Oximetry Fraction of Inspired Oxygen (FIO2) 08/07/24 08/07/24 08/07/24 07:30 07:40 07:45 Temperature Pulse Rate 141 H 140 H 142 H Pulse Rate [ Car Groomer ] Respiratory 20 16 Rate Blood Pressure 119/93 119/93 119/93 Blood Pressure [Left Arm Sitting] O2 Sat by Pulse 96 Oximetry Fraction of Inspired Oxygen (FIO2) 08/07/24 08/07/24 08/07/24 08:00 08:15 08:30 Temperature Pulse Rate 142 H 141 H 140 H Pulse Rate [ Car Groomer ] Respiratory 15 31 H 24 Rate Blood Pressure 119/93 Blood Pressure [Left Arm Sitting] O2 Sat by Pulse Oximetry Fraction of Inspired Oxygen (FIO2) 08/07/24 08/07/24 08/07/24 08:45 09:00 09:15 Temperature Pulse Rate 137 H 138 H 137 H Pulse Rate [ Car Groomer ] Respiratory 16 28 H 31 H Rate Blood Pressure Blood Pressure [Left Arm Sitting] O2 Sat by Pulse 98 98 98 Oximetry Fraction of Inspired Oxygen (FIO2) 08/07/24 08/07/24 08/07/24 09:30 09:45 09:54 Temperature Pulse Rate 137 H 137 H 137 H Pulse Rate [ Car Groomer ] Respiratory 23 34 H 24 Rate Blood Pressure 105/80 105/80 Blood Pressure [Left Arm Sitting] O2 Sat by Pulse 96 96 Oximetry Fraction of Inspired Oxygen (FIO2) 08/07/24 08/07/24 08/07/24 10:00 10:15 10:30 Temperature Pulse Rate 138 H 140 H 135 H Pulse Rate [ Car Groomer ] Respiratory 18 14 9 L Rate Blood Pressure 105/80 105/80 105/80 Blood Pressure [Left Arm Sitting] O2 Sat by Pulse Oximetry Fraction of Inspired Oxygen (FIO2) 08/07/24 08/07/24 08/07/24 10:45 10:55 11:00 Temperature Pulse Rate 138 H 138 H 141 H Pulse Rate [ Car Groomer ] Respiratory 82 H 18 35 H Rate Blood Pressure 115/55 105/82 105/82 Blood Pressure [Left Arm Sitting] O2 Sat by Pulse 97 93 L Oximetry Fraction of Inspired Oxygen (FIO2) 08/07/24 08/07/24 08/07/24 11:15 11:30 11:45 Temperature Pulse Rate 141 H 140 H 140 H Pulse Rate [ Car Groomer ] Respiratory 56 H 35 H 34 H Rate Blood Pressure 113/77 108/80 101/87 Blood Pressure [Left Arm Sitting] O2 Sat by Pulse 95 94 L 98 Oximetry Fraction of Inspired Oxygen (FIO2) 08/07/24 08/07/24 08/07/24 12:00 12:15 12:30 Temperature Pulse Rate 141 H 137 H 134 H Pulse Rate [ Car Groomer ] Respiratory 25 H 26 H 21 Rate Blood Pressure 105/79 106/82 96/47 Blood Pressure [Left Arm Sitting] O2 Sat by Pulse 97 97 Oximetry Fraction of Inspired Oxygen (FIO2) 08/07/24 08/07/24 08/07/24 12:45 13:00 13:05 Temperature Pulse Rate 137 H 134 H Pulse Rate [ Car Groomer ] Respiratory 28 H 29 H Rate Blood Pressure 85/55 85/55 Blood Pressure [Left Arm Sitting] O2 Sat by Pulse 96 Oximetry Fraction of 50 Inspired Oxygen (FIO2) 08/07/24 08/07/24 08/07/24 13:15 13:22 13:30 Temperature Pulse Rate 118 H 108 H Pulse Rate [ Car Groomer ] Respiratory 26 H 26 H Rate Blood Pressure 92/21 92/21 Blood Pressure [Left Arm Sitting] O2 Sat by Pulse Oximetry Fraction of 30 Inspired Oxygen (FIO2) 08/07/24 08/07/24 08/07/24 13:45 14:00 14:15 Temperature Pulse Rate 98 98 105 H Pulse Rate [ 98 94 Car Groomer ] Respiratory 32 H 30 H 30 H Rate Blood Pressure 83/39 94/65 89/56 Blood Pressure 89/56 71/56 [Left Arm Sitting] O2 Sat by Pulse 100 Oximetry Fraction of Inspired Oxygen (FIO2) 08/07/24 08/07/24 08/07/24 14:30 14:45 14:59 Temperature Pulse Rate 101 H Pulse Rate [ Car Groomer ] Respiratory Rate Blood Pressure 89/56 71/56 Blood Pressure [Left Arm Sitting] O2 Sat by Pulse 100 Oximetry Fraction of 100 Inspired Oxygen (FIO2) 08/07/24 08/07/24 08/07/24 15:00 15:14 15:15 Temperature Pulse Rate Pulse Rate [ 70 68 Car Groomer ] Respiratory 20 22 Rate Blood Pressure 71/56 Blood Pressure 77/57 86/61 [Left Arm Sitting] O2 Sat by Pulse 100 Oximetry Fraction of 80 Inspired Oxygen (FIO2) 08/07/24 08/07/24 16:11 16:15 Temperature Pulse Rate 70 66 Pulse Rate [ Car Groomer ] Respiratory 29 H 23 Rate Blood Pressure 85/56 Blood Pressure [Left Arm Sitting] O2 Sat by Pulse 97 99 Oximetry Fraction of Inspired Oxygen (FIO2) Procedures - Intubation Assist Device Used: other (glidscope) ET Tube Size: 7.5 Tube Secured Depth (cm): 26 Tube Secured Location: lips Tube Placement Confirmation: visualized tube passing through cords, equal breath sounds bilaterally, confirmation by capnometry Patient Tolerated Procedure: well <Chico Rios - Last Filed: 08/07/24 15:23> Medical Decision Making - Lab Data Result diagrams: 08/07/24 14:05 08/07/24 14:05 <Chico Rios - Last Filed: 08/07/24 15:23> - Lab Data Result diagrams: 08/08/24 02:47 08/08/24 08:52 <Audrey Hodge - Last Filed: 08/08/24 13:50> - Medical Decision Making Patient was holding here in the emergency department. Was admitted sometime yesterday. A-team was called as patient became pulseless. At the nearby emergency room physicians, we did assist. I intubated the patient. ROSC obtained. Management handed off to ICU team Dr. Carlos. (Chico Rios) Was pt. sent in by a medical professional or institution (, PA, DRYER OPERATOR, urgent care, hospital, or half-way...) When possible be specific @ -Patient was transferred from [facility] on [address] for admission due to CHF exacerbation. Reviewed the notes from transferring facility. Please see HPI. Found to have elevated BNP, difficulty in her breathing and B-lines on ultrasound as well as concerns for congestive heart failure on chest x-ray. There was concern for COPD exacerbation versus CHF exacerbation so patient was given albuterol, steroids, Lasix, IV magnesium. 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 Did you speak to anyone other than the patient for history (EMS, parent, family, police, friend...)? What history was obtained from this source @ -No Did you review nursing and triage notes (agree or disagree)? Why? @ -I reviewed nursing and triage notes- however patient was not documented to receive mediation for rate control water vessel captain, does arrive on magnesium gtt, and was transferred for admission for concerns for CHF exacerbation, not tachycardia Were old charts reviewed (outside hosp., previous admission, EMS record, old EKG, old radiological studies, urgent care reports/EKG's, half-way records)? Report findings @ -Please see above, reviewed chart notes from transferring facility, as well as CT PE report performed at transfer facility, no pulmonary embolism was noted on CT PE study. Differential Diagnosis (chest pain, altered mental status, abdominal pain women, abdominal pain men, vaginal bleeding, weakness, fever, dyspnea, syncope, headache, dizziness, GI bleed, back pain, seizure, CVA, palpatations, mental health, musculoskeletal)? Differential diagnosis remains broad however top considerations include atrial fibrillation, atrial flutter, other ventricular or atrial arrhythmia, CHF exac erbation, COPD exacerbation, ACS, thyrotoxicosis, electrolyte abnormality, this is an all-inclusive list EKG interpreted by me (3pts min.). @ -. Atrial flutter with 2to 1 conduction, rate 145 bpm, QRS duration 142 ms, QT/QTc 299/382 ms, left axis deviation,Compared to EKG performed at transferring facility at 10:47 AM, possible slight increase in ST elevation in V2 however otherwise no reciprocal changes and no other significant changes from EKG performed earlier, no STEMI or new ST depressions X-rays interpreted by me (1pt min.). @ -None done CT interpreted by me (1pt min.). @ -None done U/S interpreted by me (1pt. min.). @ -None done What testing was considered but not performed or refused? (CT, X-rays, U/S, labs)? Why? @I did consider obtaining chest x-ray and additional imaging however patient had chest x-ray and CT PE study performed at transferring facility, and I reviewed imaging report that were delivered with arrival of the patient What meds were considered but not given or refused? Why? @ -None Did you discuss the management of the patient with other professionals (keith so i.e. Dr., PA, DRYER OPERATOR, lab, RT, psych nurse, social science research assistant, layout former, teacher, cra officer, case maker)? Give summary @ -No Was smoking cessation discussed for >3mins.? @ -No Was critical care preformed (if so, how long)? @Yes, 35 minutes Were there social determinants of health that impacted care today? How? (Homelessness, low income, unemployed, alcoholism, drug addiction, transportation, low edu. Level, literacy, decrease access to med. care, senior living, rehab)? @ -No Was there de-escalation of care discussed even if they declined (Discuss DNR or withdrawal of care, Hospice)? @ -No What co-morbidities impacted this encounter? (DM, HTN, Smoking, COPD, CAD, Cancer, CVA, ARF, Chemo, Hep., AIDS, mental health diagnosis, sleep apnea, morbid obesity)? @Hypertension, CAD, CHF Was patient admitted / discharged? Hospital course, mention meds given and route, prescriptions, significant lab abnormalities, going to OR and other pertinent info. @ -Hospital course admission This is a 63-year-old gentleman with a past medical history of CHF, CAD, presenting today for as a transfer from [facility] on [address] for CHF exacerbation. Of note patient presented there for shortness of breath, was noted to be tachycardic while in the emergency department. Please seen above for summary of emergency department course at transferring facility. Patient was treated as a COPD/CHF exacerbation. Given IV Lasix, steroids, albuterol treatment and IV magnesium. Elevated BNP was noted with concerns for CHF exacerbation on ultrasound and chest x-ray. PE study was done that was negative for PE. Transferred here for further care and admission, as patient's paraffin plant sweater operator is here. On my assessment patient is well-appearing and pleasant, conversant. Heart rate is 140s. He denies any symptoms currently denies any chest pain. Lungs could auscultation bilaterally, he does have a tachycardic rate, regular rhythm. EKG was reviewed by myself and appears to show a flutter with 2-1 conduction. No history of A-fib/a flutter, per patient, he is not anticoagulated. As patient's symptoms have been ongoing for 2 days I will anticoagulant him with heparin. Will attempt IV metoprolol to control patient's rate. 5 mg. Comprehensive labs ordered, imaging performed at transfer facility so CDs of patient's images will be uploaded to patient's chart. BP Stable on arrival, 113/86. Discussed with patient plan of care as well as plan for anticoagulation, he is agreeable to plan. Status post metoprolol, patient remained tachycardic, blood pressure stable however patient did endorse some lightheadedness. The patient was diuresed prior to arrival he does not currently appear fluid overloaded to me, will given small fluid bolus 250 cc and monitor to ensure dehydration is not contributing to pt's symptoms. . Troponin elevated at 0. 295 I suspect this is secondary to demand ischemia as patient is not having any chest pain or obvious STEMI on EKG. Paged Dr. Medellin for further recs for rate control, as this is pt's paraffin plant sweater operator. I am hesitant to trial cardizem as patient as possible hx COPD (current smoker). Pt currently with stable BP, well appearing so will await further recs and page for admission. Labs otherwise significant for AST/ALT 248/142, T bilirubin 2.2, ramy alexandra has no abdominal pain, jaundice or right upper quadrant tenderness on exam, I will order ultrasound of the quadrant to be performed during this admission. Discussed case with Dr. Ham, who kindly accepts patient for admission. Undiagnosed new problem with uncertain prognosis? @ -No Drug Therapy requiring intensive monitoring for toxicity (Heparin, Nitro, Insulin, Cardizem)? @ -heparin Were any procedures done? @ -No Diagnosis/symptom? @ -Atrial flutter with RVR Acute, or Chronic, or Acute on Chronic? @Acute Uncomplicated (without systemic symptoms) or Complicated (systemic symptoms)? @ -Complicated Side effects of treatment? @ -No Exacerbation, Progression, or Severe Exacerbation? @ -No Poses a threat to life or bodily function? How? (Chest pain, [place], [place], pneumonia, PE, COPD, DKA, ARF, appy, cholecystitis, CVA, Diverticulitis, Homicidal, Suicidal, threat to staff... and all critical care pts) @Yes (Audrey Hodge) - Lab Data Lab Results 08/06/24 08/06/24 08/06/24 Range/Units 13:14 13:14 13:14 WBC 6.6 (3.8-10.6) k/uL RBC 4.39 (4.30-5.90) m/uL Hgb 13.7 (13.0-17.5) gm/dL Hct 42.8 (39.0-53.0) % MCV 97.6 (80.0-100.0) fL MCH 31.2 (25.0-35.0) pg MCHC 32.0 (31.0-37.0) g/dL RDW 14.2 (11.5-15.5) % Plt Count 200 (150-450) k/uL MPV 8.3 Neutrophils % 85 % Lymphocytes % 12 % Monocytes % 2 % Eosinophils % 0 % Basophils % 0 % Neutrophils # 5.6 (1.3-7.7) k/uL Lymphocytes # 0.8 L (1.0-4.8) k/uL Monocytes # 0.1 (0-1.0) k/uL Eosinophils # 0.0 (0-0.7) k/uL Basophils # 0.0 (0-0.2) k/uL PT 12.0 (10.0-12.5) sec INR 1.1 (<1.2) APTT 24.2 (22.0-30.0) sec Sodium 135 L (137-145) mmol/L Potassium 4.3 (3.5-5.1) mmol/L Chloride 107 (98-107) mmol/L Carbon Dioxide 19 L (22-30) mmol/L Anion Gap 9 mmol/L BUN 23 H (9-20) mg/dL Creatinine 1.06 (0.66-1.25) mg/dL Est GFR (CKD-EPI)AfAm 88 (>60 ml/min/1.73 sqM) Est GFR (CKD-EPI)NonAf 76 (>60 ml/min/1.73 sqM) Glucose 183 H (74-99) mg/dL Calcium 9.0 (8.4-10.2) mg/dL Magnesium 2.1 (1.6-2.3) mg/dL Total Bilirubin 2.2 H (0.2-1.3) mg/dL AST 111 H (17-59) U/L ALT 248 H (4-49) U/L Alkaline Phosphatase 142 H (38-126) U/L Troponin I (0.000-0.034) ng/mL Total Protein 7.4 (6.3-8.2) g/dL Albumin 4.8 (3.5-5.0) g/dL TSH 2.540 (0.465-4.680) mIU/L 08/06/24 Range/Units 13:14 WBC (3.8-10.6) k/uL RBC (4.30-5.90) m/uL Hgb (13.0-17.5) gm/dL Hct (39.0-53.0) % MCV (80.0-100.0) fL MCH (25.0-35.0) pg MCHC (31.0-37.0) g/dL RDW (11.5-15.5) % Plt Count (150-450) k/uL MPV Neutrophils % % Lymphocytes % % Monocytes % % Eosinophils % % Basophils % % Neutrophils # (1.3-7.7) k/uL Lymphocytes # (1.0-4.8) k/uL Monocytes # (0-1.0) k/uL Eosinophils # (0-0.7) k/uL Basophils # (0-0.2) k/uL PT (10.0-12.5) sec INR (<1.2) APTT (22.0-30.0) sec Sodium (137-145) mmol/L Potassium (3.5-5.1) mmol/L Chloride (98-107) mmol/L Carbon Dioxide (22-30) mmol/L Anion Gap mmol/L BUN (9-20) mg/dL Creatinine (0.66-1.25) mg/dL Est GFR (CKD-EPI)AfAm (>60 ml/min/1.73 sqM) Est GFR (CKD-EPI)NonAf (>60 ml/min/1.73 sqM) Glucose (74-99) mg/dL Calcium (8.4-10.2) mg/dL Magnesium (1.6-2.3) mg/dL Total Bilirubin (0.2-1.3) mg/dL AST (17-59) U/L ALT (4-49) U/L Alkaline Phosphatase (38-126) U/L Troponin I 0.295 H* (0.000-0.034) ng/mL Total Protein (6.3-8.2) g/dL Albumin (3.5-5.0) g/dL TSH (0.465-4.680) mIU/L Disposition <Chico Rios - Last Filed: 08/07/24 15:23> <Audrey Hodge - Last Filed: 08/08/24 13:50> Clinical Impression: Atrial flutter, Congestive heart failure Disposition: ADMITTED IP TO THIS HOSP Condition: Stable
[2024-08-06] MEDS: ASPIRIN 81 MG PO STA (13:21)
[2024-08-06] MEDS: METOPROLOL TARTRATE 5 MG/5 ML VIAL IVP STA (13:29)
[2024-08-06] MEDS: HEPARIN SODIUM 1,000 UN/ML (10ML VL) IV ONE (13:30)
[2024-08-06 13:31] LABS: INR 1.1 (<1.2); Partial Thromboplastin Time 24.2 sec (22.0-30.0)
[2024-08-06] MEDS: HEPARIN SOD,PORK IN 0.45% NACL 25,000 UNIT in 0.45% NACL 1 250ML.BAG IV SCH (13:33)
[2024-08-06 13:34] LABS: ALT 248 U/L (4-49); AST 111 U/L (17-59); African American GFR (CKD) 88 (>60 ml/min/1.73 sqM); Albumin 4.8 g/dL (3.5-5.0); Alkaline Phosphatase 142 U/L (38-126); Anion Gap 9 mmol/L; Basophils % (A) 0 %; Blood Urea Nitrogen 23 mg/dL (9-20); Carbon Dioxide 19 mmol/L (22-30); Chloride 107 mmol/L (98-107); Eosinophils % (A) 0 %; Glucose 183 mg/dL (74-99); HCT 42.8 % (39.0-53.0); HGB 13.7 gm/dL (13.0-17.5); Lymphocytes # (A) 0.8 k/uL (1.0-4.8); Lymphocytes % (A) 12 %; MCH 31.2 pg (25.0-35.0); MCV 97.6 fL (80.0-100.0); Magnesium 2.1 mg/dL (1.6-2.3); Mean Platelet Volume 8.3; Monocytes # (A) 0.1 k/uL (0-1.0); Monocytes % (A) 2 %; Neutrophils # (A) 5.6 k/uL (1.3-7.7); Neutrophils % (A) 85 %; Non-African American GFR(CKD) 76 (>60 ml/min/1.73 sqM); Platelet Count 200 k/uL (150-450); Potassium 4.3 mmol/L (3.5-5.1); RBC 4.39 m/uL (4.30-5.90); RDW 14.2 % (11.5-15.5); Sodium 135 mmol/L (137-145); Total Bilirubin 2.2 mg/dL (0.2-1.3); Total Protein 7.4 g/dL (6.3-8.2); WBC 6.6 k/uL (3.8-10.6)
[2024-08-06] MEDS: SODIUM CHLORIDE 0.9% 500 ML 500 ML IV ONE (14:30)
[2024-08-06] MEDS: DILTIAZEM DRIP BOLUS FROM BAG 1 MG SOLN IV ONE (15:39)
[2024-08-06] MEDS: DILTIAZEM 125 MG in SODIUM CHLORIDE 0.9% 100 ML IV SCH (15:41)
[2024-08-06] MEDS ORDERED: NALOXONE 0.4 MG/ML 1 ML VIAL IV PRN (15:56)
[2024-08-06] MEDS ORDERED: traMADol 50 MG TAB PO PRN (15:56)
[2024-08-06] MEDS ORDERED: ACETAMINOPHEN TAB 325 MG TAB PO PRN (15:56)
[2024-08-06] MEDS: ATORVASTATIN 80 MG TAB PO SCH (22:32)
[2024-08-06] MEDS: METOPROLOL TARTRATE 25 MG TAB PO SCH (22:32)
[2024-08-06] MEDS: ASPIRIN 81 MG PO SCH (22:32)
[2024-08-07] MEDS: HEPARIN SODIUM 1,000 UN/ML (10ML VL) IV PRN (02:30)
[2024-08-07] MEDS: NITROGLYCERIN SL TABS 0.4 MG TAB SUBLINGUAL PRN (10:58)
--- NOTE | 2024-08-07 11:02 | US ---
EXAMINATION TYPE: US abdomen limited DATE OF EXAM: 08/07/2024 COMPARISON: NONE CLINICAL INDICATION: Male, 63 years old with history of Elevated LFTs; Chest pain, patient denies abd omen painor N/V TECHNIQUE: Grayscale and color Doppler imaging of the right upper quadrant was performed. FINDINGS: EXAM MEASUREMENTS: Liver Length: 15.8 cm Gallbladder Wall: 0.8 cm CBD: 0.6 cm Right Kidney: 9.9 x 4.0 x 4.5 cm Pancreas: limited by overlying midline bowel gas Liver: course echotexture Gallbladder: focal area of thickened wall Evidence for sonographic Barney's sign: no CBD: visualized portions appear wnl Right Kidney: wnl IMPRESSION: Suggestion of edema in the gallbladder wall raising the question of acalculous cholecystitis. [facility], Workstation: [id number] 08/07/2024 10:59 AM
[2024-08-07] MEDS: DILTIAZEM DRIP BOLUS FROM BAG 1 MG SOLN IV ONE (11:03)
[2024-08-07] MEDS: FUROSEMIDE 10 MG/ML 4 ML VIAL IV STA (11:08)
--- NOTE | 2024-08-07 11:17 | XR ---
EXAMINATION TYPE: XR chest 1V portable DATE OF EXAM: 08/07/2024 COMPARISON: 01/28/2019 HISTORY: Arrhythmia TECHNIQUE: Single frontal view of the chest is obtained. FINDINGS: There is moderate cardiomegaly with pulmonary vascular congestion and interstitial edema. The findings suggest CHF and clinical correlation is recommended. There is no pleural effusion or pneumothorax. The osseous arteries are intact IMPRESSION: Findings suggest the presence of acute cardiopulmonary disease such as CHF. Clinical cor relation is recommended [facility], , 08/07/2024 11:15 AM
[2024-08-07] MEDS: ALPRAZolam 0.5 MG TAB PO STA (13:13)
--- NOTE | 2024-08-07 13:13 | P.CRDCN ---
History of Present Illness Consult date: 08/07/24 History of present illness: HISTORY OF PRESENTING ILLNESS 63-year-old male with past medical history of CAD s/p PCI to his mid LAD when he presented with NSTEMI in [address] Carlos. He reports that he smokes a pack per day denies any alcohol or recreational drug use marijuana use. He initially presented to [facility] with increased worsening short ness of breath, increased work of breathing, dyspnea on exertion, paroxysmal nocturnal dyspnea. Patient is not able to provide much history as he is significantly short of breath and is at increased work of breathing. He currently follows up with Dr. Medellin. On evaluation, I have immediately put him on BiPAP. On admission he is hypotensive with blood pressure systolic around 80s, he appears mildly volume overloaded with pulmonary congestion on chest x-ray. He also has elevated JVD. His heart rate is high in 130s to 140s with atrial fibrillation rhythm. Chest x-ray shows cardiomegaly as well. Admission labs shows hemoglobin 13, creatinine 1, troponin 0.2, TSH 2.5. He received 1 dose of IV Lasix 40 with minimal urine output. REVIEW OF SYSTEMS 14 point review of system is negative except what is mentioned above in HPI. PHYSICAL EXAMINATION Vital signs reviewed. Head: Normocephalic. Eyes: Sclerae nonicteric. Neck: Brisk carotid upstroke, elevated jugular venous distention. Lungs: Clear to auscultation. Heart: Irregularly irregular pulse, no significant murmur Abdomen: Soft nontender, positive bowel sounds. Extremities: 1+ pitting edema bilateral lower extremity Neuro: Alert, oritented, no focal deficits. Detailed neuro exam was not performed. ASSESSMENT Acute on chronic HFrEF exacerbation NSTEMI, type II Mild transaminitis, likely congestive hepatopathy Tobacco smoker Prior show CAD status post PCI to mid LAD Essential hypertension, dyslipidemia PLAN Start aspirin, IV heparin drip, Lipitor Reduce Cardizem to 5 Give 1 dose of amiodarone bolus 140 mg. Start amiodarone drip Repeat Lasix 80 mg IV 1 dose to see if he opens up and makes urine Start BiPAP immediately. Give 1 dose of 0.5 Xanax. Obtain ABG NT-proBNP, lipid panel. Repeat labs and electrolytes tomorrow. Gilles Singh MD, FACC, RPVI Thank you for allowing [facility] to participate in this patient's care. Feel free to reach out in case of any followup questions. Past Medical History Past Medical History: No Reported History, Myocardial Infarction ([place]) Additional Past Medical History / Comment(s): 1 stent to LAD(01/2019), History of Any Multi-Drug Resistant Organisms: None Reported Past Surgical History: Heart Catheterization With Stent Additional Past Surgical History / Comment(s): bilateral knee, abd sx when child , Past Psychological History: No Psychological Hx Reported Smoking Status: Current every day smoker Past Alcohol Use History: Occasional Past Drug Use History: None Reported - Past Family History Father Additional Family Medical History / Comment(s): father on dialysis Medications and Allergies Home Medications Medication Instructions Recorded Confirmed Type Atorvastatin [Lipitor] 80 mg PO HS #90 tab 01/31/19 08/06/24 Rx Aspirin EC [Ecotrin Low Dose] 81 mg PO BID 08/06/24 08/06/24 History Metoprolol Tartrate [Lopressor] 25 mg PO BID 08/06/24 08/06/24 History Allergies Allergy/AdvReac Type Severity Reaction Status Date / Time Penicillins Allergy Unknown Verified 08/06/24 12:31 Physical Exam Vitals: Vital Signs Pulse Resp BP Pulse Ox FiO2 08/07/24 13:05 50 08/07/24 10:55 138 H 18 105/82 97 08/07/24 09:54 137 H 24 105/80 96 08/07/24 07:40 140 H 20 119/93 96 08/07/24 06:00 132 H 18 111/95 98 08/07/24 04:00 128 H 18 95/79 98 08/07/24 02:30 128 H 18 91/72 98 08/06/24 22:28 141 H 22 113/80 08/06/24 18:52 141 H 18 113/86 97 08/06/24 17:03 131 H 18 94/79 98 08/06/24 15:37 137 H 18 106/72 97 08/06/24 14:26 138 H 20 105/48 100 08/06/24 13:35 140 H 18 111/87 98 08/06/24 13:27 146 H 18 111/89 97 Intake and Output 08/06/24 08/07/24 08/07/24 22:59 06:59 14:59 Intake Total 16.167 238.794 116.197 Balance 16.167 238.794 116.197 Intake: Intake, IV Titration 16.167 238.794 116.197 Amount Diltiazem 125 mg In 16.167 108.833 10.5 Sodium Chloride 0.9% 100 ml @ 5 MG/HR 5 mls/hr IV .Q24H [facility] Rx#:[id number] Heparin Sod,Pork in 0.45% 129.961 105.697 NaCl 25,000 unit In 0.45 % NaCl 1 250ml.bag @ 11.6 UNITS/KG/HR 9.997 mls/hr IV .Q24H [facility] Rx#: [id number] Results 08/06/24 13:14 08/06/24 13:14 Cardiac Enzymes 08/06/24 08/06/24 08/06/24 Range/Units 13:14 13:14 17:12 AST 111 H (17-59) U/L Troponin I 0.295 H* 0.201 H* (0.000-0.034) ng/mL 08/06/24 Range/Units 21:32 AST (17-59) U/L Troponin I 0.232 H* (0.000-0.034) ng/mL Coagulation 08/06/24 08/06/24 08/07/24 Range/Units 13:14 19:39 06:28 PT 12.0 (10.0-12.5) sec APTT 24.2 33.7 H 36.5 H (22.0-30.0) sec 08/07/24 Range/Units 10:05 PT (10.0-12.5) sec APTT 35.6 H (22.0-30.0) sec CBC 08/06/24 Range/Units 13:14 WBC 6.6 (3.8-10.6) k/uL RBC 4.39 (4.30-5.90) m/uL Hgb 13.7 (13.0-17.5) gm/dL Hct 42.8 (39.0-53.0) % Plt Count 200 (150-450) k/uL Comprehensive Metabolic Panel 08/06/24 Range/Units 13:14 Sodium 135 L (137-145) mmol/L Potassium 4.3 (3.5-5.1) mmol/L Chloride 107 (98-107) mmol/L Carbon Dioxide 19 L (22-30) mmol/L BUN 23 H (9-20) mg/dL Creatinine 1.06 (0.66-1.25) mg/dL Glucose 183 H (74-99) mg/dL Calcium 9.0 (8.4-10.2) mg/dL AST 111 H (17-59) U/L ALT 248 H (4-49) U/L Alkaline Phosphatase 142 H (38-126) U/L Total Protein 7.4 (6.3-8.2) g/dL Albumin 4.8 (3.5-5.0) g/dL Current Medications Generic Name Dose Route Start Last Admin Trade Name Freq PRN Reason Stop Dose Admin Acetaminophen 650 mg 08/06/24 15:56 Acetaminophen Tab 325 Mg Tab PO Q6HR PRN Mild Pain or Fever > 100.5 Aspirin 81 mg 08/06/24 21:00 08/07/24 08:04 Aspirin 81 Mg PO Not Given BID ABIGAIL Atorvastatin Calcium 80 mg 08/06/24 21:00 08/06/24 22:32 Atorvastatin 80 Mg Tab PO 80 mg HS ABIGAIL Administration Heparin Sodium (Porcine) 0 unit 08/06/24 13:05 08/07/24 02:30 Heparin Sodium 1,000 Un/Ml (10ml Vl) IV 4,000 unit PER PROTOCOL PRN Administration Low PTT Protocol Heparin Sodium/Sodium Chloride 250 mls @ 9.997 mls/hr 08/06/24 13:15 08/07/24 10:57 25,000 unit/ Sodium Chloride IV 14.6 units/kg/hr .Q24H ABIGAIL 12.583 mls/hr Administration Protocol 11.6 UNITS/KG/HR Diltiazem HCl 125 mg/ Sodium 125 mls @ 5 mls/hr 08/06/24 15:45 08/07/24 11:13 Chloride IV 15 mg/hr .Q24H ABIGAIL 15 mls/hr Infusion 5 MG/HR Amiodarone HCl 150 mg/ 103 mls @ 618 mls/hr 08/07/24 13:20 Dextrose/Water IV 08/07/24 13:29 .Q10M ONE Amiodarone HCl 360 mg/ 200 mls @ 33.333 mls/hr 08/07/24 13:30 Dextrose/Water IV 08/07/24 19:29 .Q6H ONE Protocol 1 MG/MIN Amiodarone HCl 450 mg/ 250 mls @ 16.667 mls/hr 08/07/24 19:30 Dextrose/Water IV 08/08/24 13:29 .Q15H ABIGAIL Protocol 0.5 MG/MIN Metoprolol Tartrate 25 mg 08/06/24 21:00 08/07/24 11:02 Metoprolol Tartrate 25 Mg Tab PO 25 mg BID ABIGAIL Administration Naloxone HCl 0.2 mg 08/06/24 15:56 Naloxone 0.4 Mg/Ml 1 Ml Vial IV Q2M PRN Opioid Reversal Nitroglycerin 0.4 mg 08/07/24 10:52 08/07/24 11:14 Nitroglycerin Sl Tabs 0.4 Mg Tab SUBLINGUAL 0.4 mg Q5M PRN Administration Chest Pain Pantoprazole Sodium 40 mg 08/08/24 07:30 Pantoprazole 40 Mg Tablet PO AC-BRKFST [facility] Tramadol HCl 50 mg 08/06/24 15:56 Tramadol 50 Mg Tab PO Q6H PRN Moderate Pain (Scale 4 to 6) Intake and Output 08/06/24 08/07/24 08/07/24 22:59 06:59 14:59 Intake Total 16.167 238.794 116.197 Balance 16.167 238.794 116.197 Intake: Intake, IV Titration 16.167 238.794 116.197 Amount Diltiazem 125 mg In 16.167 108.833 10.5 Sodium Chloride 0.9% 100 ml @ 5 MG/HR 5 mls/hr IV .Q24H [facility] Rx#:[id number] Heparin Sod,Pork in 0.45% 129.961 105.697 NaCl 25,000 unit In 0.45 % NaCl 1 250ml.bag @ 11.6 UNITS/KG/HR 9.997 mls/hr IV .Q24H [facility] Rx#: [id number] 08/06/24 13:14 08/06/24 13:14
[2024-08-07 13:18] LABS: ABG Base Excess -8.7 mmol/L; ABG HCO3 14 mmol/L (21-25); ABG PCO2 22 mmHg (35-45); ABG PH 7.41 (7.35-7.45); ABG PO2 172 mmHg (83-108); ABG TCO2 15 mmol/L (19-24); Allen Test Performed? Yes
--- NOTE | 2024-08-07 13:38 | P.HPIM ---
History of Present Illness History of present illness; 63-year-old male with a past medical history of hypertension, and NE in 2019 (1 stent to the LAD) presents from [facility] on [address] for CHF exacerbation. Patient states he presented to [facility] yesterday for shortness of breath for the last 2 days. Patient denies chest pain here however upon review of records from [facility] he endorsed substernal chest pain at that time. Patient reports the symptoms are similar to what he felt when he had his initial heart attack in 2019. Family history: Noncontributory Surgical history: Abdominal surgery as a child for toxin ingestion Social history: Cigarette smoker Initial lab work from the ER was significant for WBC 6.6, hemoglobin 13.7, MCV 97.6, sodium 135, bicarb 19, creatinine 1.06, glucose 183, total bilirubin 2.2, AST 811, ALT 248, alkaline phosphatase 142, troponin 0.295--> 0.201--> 0.232, and TSH 2.5. EKG done in the ER showed heart rate of 145 bpm, no ST segment elevation or depression seen, no T-wave inversions seen. Atrial flutter/tachycardia with RVR ER CXR: Presence of acute cardiopulmonary disease such as CHF. Patient admitted to internal medicine service REVIEW OF SYSTEMS: CONSTITUTIONAL: No fever, no malaise, no fatigue. HEENT: No recent visual problems or hearing problems. Denied any sore throat. CARDIOVASCULAR: Admits to chest pain, orthopnea, PND, no palpitations, no syncope. PULMONARY: Admits to shortness of breath, no cough, no hemoptysis. GASTROINTESTINAL: No diarrhea, no nausea, no vomiting, no abdominal pain. NEUROLOGICAL: No headaches, no weakness, no numbness. HEMATOLOGICAL: Denies any bleeding or petechiae. GENITOURINARY: Denies any burning micturition, frequency, or urgency. MUSCULOSKELETAL/RHEUMATOLOGICAL: Denies any joint pain, swelling, or any muscle pain. ENDOCRINE: Denies any polyuria or polydipsia. The rest of the 14-point review of systems is negative. PHYSICAL EXAMINATION: GENERAL: The patient is alert and oriented x3, not in any acute distress. Well developed, well nourished. HEENT: Pupils are round and equally reacting to light. EOMI. No scleral icterus. No conjunctival pallor. Normocephalic, atraumatic. No pharyngeal erythema. No th yromegaly. CARDIOVASCULAR: S1 and S2 present. No murmurs, rubs, or gallops. PULMONARY: Wheezing auscultated bilaterally ABDOMEN: Soft, nontender, nondistended, normoactive bowel sounds. No palpable or ganomegaly. MUSCULOSKELETAL: No joint swelling or deformity. EXTREMITIES: No cyanosis, clubbing, or pedal edema. NEUROLOGICAL: Gross neurological examination did not reveal any focal deficits. SKIN: No rashes. Assessment & Plan: Acute: #Atrial flutter with RVR, NSTEMI type II: Reduce Cardizem to 5, gave 1 dose of amiodarone bolus 140 Mg, and start amiodarone drip and metoprolol tartrate 25 mg p.o. twice daily Cardiology on consult, appreciate further recommendations Ordered CT angio chest Continue heparin drip #Acute on chronic HFrEF: Gave 1 time dose Lasix 40 mg IV without any concurrent urination, so gave repeat Lasix 80 mg IV 1 dose to see if the patient makes urine Patient started on BiPAP and given 1 dose of 0.5 Xanax Ordered ABG, BNP, and lipid panel Continue to monitor Will consider nephrology consulted patient is a unable to make urine #Transaminitis: Likely secondary to hepatic congestion Ultrasound abdomen shows edema in the gallbladder wall raising the question of acalculous cholecystitis. Continue to monitor CMP #Nonanion gap metabolic acidosis: Continue to monitor BMP Chronic: #History of NE, CAD status post PCI to mid LAD #Essential hypertension On metoprolol here #Dyslipidemia On home statin here F: None E: None N: N.p.o. after midnight A: Normally ambulates unassisted at home DVT ppx: Heparin drip GI ppx: Protonix 40 mg p.o. daily Dispo: Pending clinical course CODE STATUS: Full code Bushra Valdes MD PGY-1 FM Dictation was produced using [employer] dictation software. please excuse any grammatical, word or spelling errors. Past Medical History Past Medical History: No Reported History, Myocardial Infarction ([place]) Additional Past Medical History / Comment(s): 1 stent to LAD(01/2019), History of Any Multi-Drug Resistant Organisms: None Reported Past Surgical History: Heart Catheterization With Stent Additional Past Surgical History / Comment(s): bilateral knee, abd sx when child , Past Psychological History: No Psychological Hx Reported Smoking Status: Current every day smoker Past Alcohol Use History: Occasional Past Drug Use History: None Reported - Past Family History Father Additional Family Medical History / Comment(s): father on dialysis Medications and Allergies Home Medications Medication Instructions Recorded Confirmed Type Atorvastatin [Lipitor] 80 mg PO HS #90 tab 01/31/19 08/06/24 Rx Aspirin EC [Ecotrin Low Dose] 81 mg PO BID 08/06/24 08/06/24 History Metoprolol Tartrate [Lopressor] 25 mg PO BID 08/06/24 08/06/24 History Allergies Allergy/AdvReac Type Severity Reaction Status Date / Time Penicillins Allergy Unknown Verified 08/06/24 12:31 Physical Exam Vitals: Vital Signs Temp Pulse Pulse Resp BP Pulse Ox 08/07/24 07:40 140 H 20 119/93 96 08/07/24 06:00 132 H 18 111/95 98 08/07/24 04:00 128 H 18 95/79 98 08/07/24 02:30 128 H 18 91/72 98 08/06/24 22:28 141 H 22 113/80 08/06/24 18:52 141 H 18 113/86 97 08/06/24 17:03 131 H 18 94/79 98 08/06/24 15:37 137 H 18 106/72 97 08/06/24 14:26 138 H 20 105/48 100 08/06/24 13:35 140 H 18 111/87 98 08/06/24 13:27 146 H 18 111/89 97 08/06/24 12:43 142 H 08/06/24 12:21 98.3 F 148 H 18 115/97 98 Intake and Output 08/06/24 08/07/24 08/07/24 22:59 06:59 14:59 Intake Total 16.167 129.961 Balance 16.167 129.961 Intake: Intake, IV Titration 16.167 129.961 Amount Diltiazem 125 mg In 16.167 Sodium Chloride 0.9% 100 ml @ 5 MG/HR 5 mls/hr IV .Q24H [facility] Rx#:[id number] Heparin Sod,Pork in 0.45% 129.961 NaCl 25,000 unit In 0.45 % NaCl 1 250ml.bag @ 11.6 UNITS/KG/HR 9.997 mls/hr IV .Q24H [facility] Rx#: [id number] Results CBC & Chem 7: 08/06/24 13:14 08/06/24 13:14 Labs: Abnormal Lab Results - Last 24 Hours (Table) 08/06/24 08/06/24 08/06/24 Range/Units 13:14 13:14 13:14 Lymphocytes # 0.8 L (1.0-4.8) k/uL APTT (22.0-30.0) sec Sodium 135 L (137-145) mmol/L Carbon Dioxide 19 L (22-30) mmol/L BUN 23 H (9-20) mg/dL Glucose 183 H (74-99) mg/dL Total Bilirubin 2.2 H (0.2-1.3) mg/dL AST 111 H (17-59) U/L ALT 248 H (4-49) U/L Alkaline Phosphatase 142 H (38-126) U/L Troponin I 0.295 H* (0.000-0.034) ng/mL 08/06/24 08/06/24 08/06/24 Range/Units 17:12 19:39 21:32 Lymphocytes # (1.0-4.8) k/uL APTT 33.7 H (22.0-30.0) sec Sodium (137-145) mmol/L Carbon Dioxide (22-30) mmol/L BUN (9-20) mg/dL Glucose (74-99) mg/dL Total Bilirubin (0.2-1.3) mg/dL AST (17-59) U/L ALT (4-49) U/L Alkaline Phosphatase (38-126) U/L Troponin I 0.201 H* 0.232 H* (0.000-0.034) ng/mL 08/07/24 Range/Units 06:28 Lymphocytes # (1.0-4.8) k/uL APTT 36.5 H (22.0-30.0) sec Sodium (137-145) mmol/L Carbon Dioxide (22-30) mmol/L BUN (9-20) mg/dL Glucose (74-99) mg/dL Total Bilirubin (0.2-1.3) mg/dL AST (17-59) U/L ALT (4-49) U/L Alkaline Phosphatase (38-126) U/L Troponin I (0.000-0.034) ng/mL
[2024-08-07] MEDS: DEXTROSE 5% IN WATER 100 ML with AMIODARONE 150 MG IV ONE (13:56)
[2024-08-07] MEDS: DEXTROSE/WATER 1 250ML.BAG with DOPamine DRIP 800 MG IV SCH (14:27)
[2024-08-07 14:28] LABS: Basophils % (A) 0 %; Eosinophils % (A) 0 %; HCT 40.8 % (39.0-53.0); HGB 13.5 gm/dL (13.0-17.5); Lymphocytes # (A) 1.9 k/uL (1.0-4.8); Lymphocytes % (A) 12 %; MCH 32.3 pg (25.0-35.0); MCHC 33.2 g/dL (31.0-37.0); MCV 97.2 fL (80.0-100.0); Mean Platelet Volume 9.3; Monocytes # (A) 0.9 k/uL (0-1.0); Monocytes % (A) 5 %; Neutrophils # (A) 13.4 k/uL (1.3-7.7); Neutrophils % (A) 82 %; Platelet Count 206 k/uL (150-450); RBC 4.19 m/uL (4.30-5.90); RDW 14.7 % (11.5-15.5); WBC 16.4 k/uL (3.8-10.6)
[2024-08-07] MEDS: AMIODARONE 360 MG in DEXTROSE 5% IN WATER 200 ML IV ONE (14:50)
[2024-08-07 14:53] LABS: ALT 339 U/L (4-49); AST 174 U/L (17-59); African American GFR (CKD) 42 (>60 ml/min/1.73 sqM); Albumin 4.6 g/dL (3.5-5.0); Alkaline Phosphatase 99 U/L (38-126); Anion Gap 20 mmol/L; Blood Urea Nitrogen 40 mg/dL (9-20); Calcium 8.6 mg/dL (8.4-10.2); Carbon Dioxide 15 mmol/L (22-30); Chloride 99 mmol/L (98-107); Glucose 134 mg/dL (74-99); Non-African American GFR(CKD) 37 (>60 ml/min/1.73 sqM); Potassium 5.1 mmol/L (3.5-5.1); Sodium 134 mmol/L (137-145); Total Bilirubin 2.7 mg/dL (0.2-1.3); Total Protein 7.3 g/dL (6.3-8.2)
[2024-08-07 15:01] LABS: NT-Pro-B-Type Natriuretic Pept 11700 pg/mL
[2024-08-07 15:09] LABS: ABG Base Excess -16.4 mmol/L; ABG HCO3 12 mmol/L (21-25); ABG Oxygen Saturation 97.7 % (94-97); ABG PCO2 36 mmHg (35-45); ABG PO2 139 mmHg (83-108); ABG TCO2 13 mmol/L (19-24)
[2024-08-07 15:13] LABS: ABG PH 7.13 (7.35-7.45)
--- NOTE | 2024-08-07 15:21 | ED ---
Medical Decision Making - Lab Data Result diagrams: 08/07/24 14:05 08/07/24 14:05 Lab Results 08/06/24 08/06/24 08/06/24 Range/Units 13:14 13:14 13:14 WBC 6.6 (3.8-10.6) k/uL RBC 4.39 (4.30-5.90) m/uL Hgb 13.7 (13.0-17.5) gm/dL Hct 42.8 (39.0-53.0) % MCV 97.6 (80.0-100.0) fL MCH 31.2 (25.0-35.0) pg MCHC 32.0 (31.0-37.0) g/dL RDW 14.2 (11.5-15.5) % Plt Count 200 (150-450) k/uL MPV 8.3 Neutrophils % 85 % Lymphocytes % 12 % Monocytes % 2 % Eosinophils % 0 % Basophils % 0 % Neutrophils # 5.6 (1.3-7.7) k/uL Lymphocytes # 0.8 L (1.0-4.8) k/uL Monocytes # 0.1 (0-1.0) k/uL Eosinophils # 0.0 (0-0.7) k/uL Basophils # 0.0 (0-0.2) k/uL PT 12.0 (10.0-12.5) sec INR 1.1 (<1.2) APTT 24.2 (22.0-30.0) sec Sodium 135 L (137-145) mmol/L Potassium 4.3 (3.5-5.1) mmol/L Chloride 107 (98-107) mmol/L Carbon Dioxide 19 L (22-30) mmol/L Anion Gap 9 mmol/L BUN 23 H (9-20) mg/dL Creatinine 1.06 (0.66-1.25) mg/dL Est GFR (CKD-EPI)AfAm 88 (>60 ml/min/1.73 sqM) Est GFR (CKD-EPI)NonAf 76 (>60 ml/min/1.73 sqM) Glucose 183 H (74-99) mg/dL Calcium 9.0 (8.4-10.2) mg/dL Magnesium 2.1 (1.6-2.3) mg/dL Total Bilirubin 2.2 H (0.2-1.3) mg/dL AST 111 H (17-59) U/L ALT 248 H (4-49) U/L Alkaline Phosphatase 142 H (38-126) U/L Troponin I (0.000-0.034) ng/mL Total Protein 7.4 (6.3-8.2) g/dL Albumin 4.8 (3.5-5.0) g/dL TSH 2.540 (0.465-4.680) mIU/L 08/06/24 Range/Units 13:14 WBC (3.8-10.6) k/uL RBC (4.30-5.90) m/uL Hgb (13.0-17.5) gm/dL Hct (39.0-53.0) % MCV (80.0-100.0) fL MCH (25.0-35.0) pg MCHC (31.0-37.0) g/dL RDW (11.5-15.5) % Plt Count (150-450) k/uL MPV Neutrophils % % Lymphocytes % % Monocytes % % Eosinophils % % Basophils % % Neutrophils # (1.3-7.7) k/uL Lymphocytes # (1.0-4.8) k/uL Monocytes # (0-1.0) k/uL Eosinophils # (0-0.7) k/uL Basophils # (0-0.2) k/uL PT (10.0-12.5) sec INR (<1.2) APTT (22.0-30.0) sec Sodium (137-145) mmol/L Potassium (3.5-5.1) mmol/L Chloride (98-107) mmol/L Carbon Dioxide (22-30) mmol/L Anion Gap mmol/L BUN (9-20) mg/dL Creatinine (0.66-1.25) mg/dL Est GFR (CKD-EPI)AfAm (>60 ml/min/1.73 sqM) Est GFR (CKD-EPI)NonAf (>60 ml/min/1.73 sqM) Glucose (74-99) mg/dL Calcium (8.4-10.2) mg/dL Magnesium (1.6-2.3) mg/dL Total Bilirubin (0.2-1.3) mg/dL AST (17-59) U/L ALT (4-49) U/L Alkaline Phosphatase (38-126) U/L Troponin I 0.295 H* (0.000-0.034) ng/mL Total Protein (6.3-8.2) g/dL Albumin (3.5-5.0) g/dL TSH (0.465-4.680) mIU/L Disposition Clinical Impression: Atrial flutter, Congestive heart failure Disposition: ADMITTED IP TO THIS HOSP Condition: Stable Procedures - Arterial Line No standard instances Consent Obtained: verbal consent Size (Gauge): 14 Technique Used: direct puncture technique Post-Procedure: line sutured into place Patient Tolerated Procedure: well Complications: none
[2024-08-07] MEDS: FUROSEMIDE 10 MG/ML 10 ML VIAL IV STA (15:22)
[2024-08-07] MEDS: methylPREDNISolone SOD SUCCI 125 MG/2 ML VIAL IV STA (15:25)
[2024-08-07] MEDS: NOREPINEPHRINE 8 MG in SODIUM CHLORIDE 0.9% 250 ML IV SCH (15:32)
--- NOTE | 2024-08-07 15:34 | XR ---
EXAMINATION TYPE: XR chest 1V portable DATE OF EXAM: 08/07/2024 3:21 PM CLINICAL INDICATION: Male, 63 years old with history of Tube placement; [facility] COMPARISON: Chest radiographs from same day TECHNIQUE: XR chest 1V portable Frontal view of the chest. FINDINGS: Lungs/Pleura: Increasing right airspace opacities. There is no evidence of pleural effusion, focal co nsolidation, or pneumothorax. Pulmonary vascularity: Unremarkable. Heart/mediastinum: Cardiomediastinal silhouette is unremarkable. Musculoskeletal: No acute osseous pathology. Other findings: None * Endotracheal tube 5.6 cm above the yessenia * Nasogastric tube appropriately placed above the yessenia. IMPRESSION: 1. Support tubes in appropriate position. 2. Right-sided airspace opacities correlate for pneumonia slightly increased in density compared to prior. [facility], , 08/07/2024 3:32 PM
--- NOTE | 2024-08-07 15:38 | P.CNPUL ---
History of Present Illness Consult date: 08/07/24 Reason for consult: dyspnea History of present illness: 63-year-old male patient, seen in the emergency department after he sustained a brief cardiac arrest. The patient is known to have coronary artery disease and the patient has had a previous anterior wall myocardial infarction back in 2019 requiring stenting of the LAD and he develops ischemic cardiomyopathy following that with impaired left-ventricular ejection fraction. Noted the patient has not been following up by cardiology since then. The patient came into the emergency department, having anxiety and increased shortness of breath. He was found to be in atrial fibrillation with rapid ventricular response. The patient was started initially on Cardizem drip and Cardizem drip was up to 50 mg an hour with poor response and his heart rate continued to be in the 130/140 range. The patient was in RVR. Subsequently, the patient was started on amiodarone drip and the patient became progressively more short of breath. His chest x-ray was consistent with pulmonary edema. The EKG showed atrial fibrillation with left axis deviation and interventricular conduction delay. The white cell count was at 16.4. The patient's proBNP level was 11,700 and a troponin levels were 0.2 and 0.2 and 0.2 respectively x 3. Initial creatinine was at 1.0. Subsequently, the patient became more short of breath, he was placed on a BiPAP. He did not tolerate the BiPAP and as he pulled off his BiPAP mask, the patient went int ventricular fibrillation. He was resuscitated according to the ACLS protocol. His downtime was around 2 minutes. He was given epinephrine, received CPR, int ubated in the emergency department. At the time of my arrival, the patient was still hypotensive. Started the patient on norepinephrine which is currently running at 0.15 mcg/kg/min. The patient currently has a soft blood pressure with a systolic blood pressure ranging between 70 and 80. The patient remains in atrial fibrillation and his heart rate is under better control. A bedside echocardiogram was done and his ejection fraction is less than 10%. He has significant mitral regurgitation. He remains on IV heparin. Cardizem drip has been discontinued. Postintubation chest x-ray was consistent with pulmonary edema, asymmetric, right more than left. Establish a triple-lumen catheter. Pulses are quite diminished in all 4 extremities. The hematologic profile shows a white cell count of 16.4, hemoglobin 13.5 and a platelet count of 206. Post intubation and cardiac arrest blood gas showed a pH of 7.13 with a pCO2 of 36 and pO2 139 and this was done on assist-control mode of mechanical ventilation at rate of 20, tidal volume of 450, FiO2 of 100% and a PEEP of 5. Review of Systems ROS unobtainable: due to endotracheal tube Past Medical History Past Medical History: No Reported History, Coronary Artery Disease (CAD), Heart Failure, Myocardial Infarction ([place]) Additional Past Medical History / Comment(s): 1 stent to LAD(01/2019), History of Any Multi-Drug Resistant Organisms: None Reported Past Surgical History: Heart Catheterization With Stent Additional Past Surgical History / Comment(s): bilateral knee, abd sx when child , Past Psychological History: No Psychological Hx Reported Smoking Status: Current every day smoker Past Alcohol Use History: Occasional Past Drug Use History: None Reported - Past Family History Father Additional Family Medical History / Comment(s): father on dialysis Medications and Allergies Home Medications Medication Instructions Recorded Confirmed Type Atorvastatin [Lipitor] 80 mg PO HS #90 tab 01/31/19 08/06/24 Rx Aspirin EC [Ecotrin Low Dose] 81 mg PO BID 08/06/24 08/06/24 History Metoprolol Tartrate [Lopressor] 25 mg PO BID 08/06/24 08/06/24 History Allergies Allergy/AdvReac Type Severity Reaction Status Date / Time Penicillins Allergy Unknown Verified 08/06/24 12:31 Physical Exam Vitals: Vital Signs Pulse Resp BP Pulse Ox FiO2 08/07/24 15:14 80 08/07/24 14:59 100 08/07/24 14:58 100 08/07/24 13:22 30 08/07/24 13:05 50 08/07/24 13:00 106 H 34 H 85/55 96 08/07/24 10:55 138 H 18 105/82 97 08/07/24 09:54 137 H 24 105/80 96 08/07/24 07:40 140 H 20 119/93 96 08/07/24 06:00 132 H 18 111/95 98 08/07/24 04:00 128 H 18 95/79 98 08/07/24 02:30 128 H 18 91/72 98 08/06/24 22:28 141 H 22 113/80 08/06/24 18:52 141 H 18 113/86 97 08/06/24 17:03 131 H 18 94/79 98 08/06/24 15:37 137 H 18 106/72 97 Intake and Output 08/07/24 08/07/24 08/07/24 06:59 14:59 22:59 Intake Total 238.794 146.606 Balance 238.794 146.606 Intake: Intake, IV Titration 238.794 146.606 Amount Diltiazem 125 mg In 108.833 10.5 Sodium Chloride 0.9% 100 ml @ 5 MG/HR 5 mls/hr IV .Q24H ABIGAIL Rx#:[id number] Heparin Sod,Pork in 0.45% 129.961 136.106 NaCl 25,000 unit In 0.45 % NaCl 1 250ml.bag @ 11.6 UNITS/KG/HR 9.997 mls/hr IV .Q24H ABIGAIL Rx#: [id number] The patient is sedated, current intubated on mechanical ventilator. Orogastric and orotracheal tube are both in place. Head exam is unremarkable. No scleral icterus or corneal arcus noted. Neck is with jugular venous distension, thyromegaly, or carotid bruits. Carotid upstrokes are brisk bilaterally. Lungs are diminished bilaterally along with bibasilar crackles Cardiac exam reveals the PMI to be normally sized and situated. Rhythm is irregular with an S3 gallop.. First and second heart sounds normal. No murmurs, rubs and there is an S3 gallops. Abdominal exam reveals normal bowel sounds, no masses, no organomegaly and no aortic enlargement. Extremities are nonedematous and both femoral and pedal pulses are diminished in the extremities are cold. Examination of the skin revealed no evidence of significant rashes, suspicious appearing nevi or other concerning lesions. Neurologically, the patient is is sedated. Pupils are round to 3 mm in size, sluggishly reactive to light. No nystagmus. No clonus. Motor and sensory function cannot be established. Results - Laboratory Findings CBC and BMP: 08/07/24 14:05 08/07/24 14:05 ABG ABG pH 7.13 (7.35-7.45) L* 08/07/24 15:07 ABG pCO2 36 mmHg (35-45) 08/07/24 15:07 ABG pO2 139 mmHg (83-108) H 08/07/24 15:07 ABG O2 Saturation 97.7 % (94-97) H 08/07/24 15:07 PT/INR, D-dimer PT 12.0 sec (10.0-12.5) 08/06/24 13:14 INR 1.1 (<1.2) 08/06/24 13:14 Abnormal lab findings: Abnormal Labs 08/06/24 08/06/24 08/06/24 13:14 13:14 13:14 WBC RBC Neutrophils # Lymphocytes # 0.8 L APTT ABG pH ABG pCO2 ABG pO2 ABG HCO3 ABG Total CO2 ABG O2 Saturation Sodium 135 L Carbon Dioxide 19 L BUN 23 H Creatinine Glucose 183 H Total Bilirubin 2.2 H AST 111 H ALT 248 H Alkaline Phosphatase 142 H Troponin I 0.295 H* 08/06/24 08/06/24 08/06/24 17:12 19:39 21:32 WBC RBC Neutrophils # Lymphocytes # APTT 33.7 H ABG pH ABG pCO2 ABG pO2 ABG HCO3 ABG Total CO2 ABG O2 Saturation Sodium Carbon Dioxide BUN Creatinine Glucose Total Bilirubin AST ALT Alkaline Phosphatase Troponin I 0.201 H* 0.232 H* 08/07/24 08/07/24 08/07/24 06:28 10:05 13:15 WBC RBC Neutrophils # Lymphocytes # APTT 36.5 H 35.6 H ABG pH ABG pCO2 22 L ABG pO2 172 H ABG HCO3 14 L ABG Total CO2 15 L ABG O2 Saturation 100.0 H Sodium Carbon Dioxide BUN Creatinine Glucose Total Bilirubin AST ALT Alkaline Phosphatase Troponin I 08/07/24 08/07/24 08/07/24 14:05 14:05 15:07 WBC 16.4 H RBC 4.19 L Neutrophils # 13.4 H Lymphocytes # APTT ABG pH 7.13 L* ABG pCO2 ABG pO2 139 H ABG HCO3 12 L ABG Total CO2 13 L ABG O2 Saturation 97.7 H Sodium 134 L Carbon Dioxide 15 L BUN 40 H Creatinine 1.93 H Glucose 134 H Total Bilirubin 2.7 H AST 174 H ALT 339 H Alkaline Phosphatase Troponin I - Diagnostic Findings Chest x-ray: image reviewed Assessment and Plan Plan: Acute V-fib cardiac arrest, downtime was 2 minutes, cardiac arrest was witnessed and the patient received CPR and epinephrine. There was return of spontaneous circulation. Cardiogenic shock Coronary artery disease with previous anterior wall myocardial infarction and stenting of the LAD CHF with impaired ejection fraction of less than 10% along with moderate to severe mitral regurgitation. Awaiting official echocardiogram New onset atrial fibrillation with rapid ventricular response, currently on amiodarone drip. Cardizem drip has been discontinued. Acute kidney injury Acute hypoxic respiratory failure secondary to pulmonary edema. Currently intubated on mechanical ventilator Leukocytosis Plan Keep the patient intubated for now. Increase the respirate up to 28. Dropped FiO2 down to 80% and increase the PEEP up to 8. Postintubation chest x-ray was noted Will monitor the blood gases Keep the patient sedated on propofol and the dose will be increased up to 40 mcg/kg/min Norepinephrine for hemodynamic support and dose to be titrated Continue amiodarone drip IV heparin Stat echocardiogram to be interpreted by cardiology Aspirin Lasix 80 mg IV push x 1 Will give the patient 2 doses of sodium bicarb a total of 100 mEq IV push Will consult with cardiology. May need a cardiac catheterization and/or mechanical support regarding his LV failure. IV Protonix Admit the patient to the intensive care unit Triple-lumen catheter was established Condition is critical with a poor outcome secondary above-mentioned comorbidities.
[2024-08-07] MEDS: AMIODARONE 450 MG in DEXTROSE 5% IN WATER 250 ML IV SCH (15:39)
--- NOTE | 2024-08-07 15:39 | P.PCN ---
Date of Procedure: 08/07/24 Preoperative Diagnosis: Cardiogenic shock Postoperative Diagnosis: Cardiogenic shock Procedure(s) Performed: Central line Anesthesia: local Surgeon: Paulo Carlos Estimated Blood Loss (ml): 0 Pathology: other Condition: critical Disposition: ICU Operative Findings: Indication: Hemodynamic monitoring/Intravenous access. A time-out was completed verifying correct patient, procedure, site, positioning, and implant(s) or special equipment if applicable. The patient was placed in a dependent position appropriate for central line placement based on the vein to be cannulated. The patients left chest was prepped and draped in sterile fashion. 1% Lidocaine was used to anesthetize the surrounding skin area. A triple lumen 9F Cordis catheter was introduced into the left subclavian vein using Seldinger technique. The catheter was threaded smoothly over the guide wire and appropriate blood return was obtained. Each lumen of the catheter was evacuated of air and flushed with sterile saline. The catheter was then sutured in place to the skin and a sterile dressing applied. Perfusion to the extremity distal to the point of catheter insertion was checked and found to be adequate. The patient tolerated the procedure well and there were no complications.
[2024-08-07] MEDS: NOREPINEPHRINE 32 MG in SODIUM CHLORIDE 0.9% 218 ML IV SCH (16:08)
[2024-08-07] MEDS: SODIUM CHLORIDE 0.9% 1,000 ML IV ONE (16:37)
--- NOTE | 2024-08-07 16:39 | CA ---
Transthoracic Echo Report Name: Becki Ray Age: 63 Gender: M : 1960 Exam Date: 08/07/2024 13:33 Exam Location: [facility] Ht (in): 70 Wt (lb): 190 Ordering Physician: Gilles Singh MD ([id number]) Attending/Referring Phys: Wall Crane Operator Xuan Ku RDCS Procedure CPT: Indications: chf Cardiac Hx: Technical Quality: Fair, Pt refused part of the ECHO Contrast 1: Total Dose (mL): Contrast 2: Total Dose (mL): MEASUREMENTS (Male / Female) Normal Values 2D ECHO LV Diastolic Diameter PLAX 7.7 cm 4.2 - 5.9 / 3.9 - 5.3 cm LV Systolic Diameter PLAX 7.0 cm IVS Diastolic Thickness 0.8 cm 0.6 - 1.0 / 0.6 - 0.9 cm LVPW Diastolic Thickness 0.8 cm 0.6 - 1.0 / 0.6 - 0.9 cm LV Relative Wall Thickness 0.2 RV Internal Dim ED PLAX 2.5 cm LA Systolic Diameter LX 5.3 cm 3.0 - 4.0 / 2.7 - 3.8 cm M-MODE Aortic Root Diameter MM 3.1 cm LA Systolic Diameter MM 5.2 cm LA Ao Ratio MM 1.7 AV Cusp Separation MM 1.5 cm DOPPLER TR Peak Velocity 239.7 cm/s TR Peak Gradient 23.0 mmHg FINDINGS Left Ventricle Left ventricular ejection fraction is estimated at 10 %. Severely increased left ventricular diastolic diameter. Severely reduced global left ventricular systolic function. Right Ventricle Right ventricle not well visualized. Right Atrium Severe right atrial dilatation. Left Atrium Severely increased left atrial diameter. Mitral Valve Mitral valve thickened. [id number] mitral regurgitation. No mitral stenosis. Severe mitral annular dilatation. Aortic Valve Trileaflet aortic valve. Thickened aortic valve without stenosis. Tricuspid Valve Structurally normal tricuspid valve. Moderate tricuspid regurgitation. No tricuspid stenosis. Pulmonic Valve Structurally normal pulmonic valve. Trace pulmonic regurgitation. No pulmonic stenosis. Pericardium No pericardial or pleural effusion. Aorta Normal size aortic root and proximal ascending aorta. CONCLUSIONS Limited echocardiogram due to patient's noncompliance LVEF 10% Akinetic and thinned out anteroseptal wall Dilated LV cavity Moderate eccentric mitral regurgitation due to restricted posterior mitral leaflet Moderate bilateral dilatation Previewed by: Dr Gilles Singh (Electronically Signed) Final Date: 07 August 2024 16:38
[2024-08-07] MEDS: LIDOCAINE 1% INJ 10MG/ML (20 ML MDV) SQ ONE (17:15)
[2024-08-07] MEDS: HEPARIN SODIUM 1,000 UN/ML (10ML VL) IVP ONE ×4 (17:19→18:24)
[2024-08-07 17:29] LABS: O2 Sat Blood Gas 44.7 %
[2024-08-07 17:30] LABS: O2 Sat Blood Gas 42.5 %
[2024-08-07] MEDS: FUROSEMIDE 10 MG/ML 4 ML VIAL IV ONE (17:51)
[2024-08-07] MEDS: IOPAMIDOL-370 100ML BTL INJ ONE (18:30)
[2024-08-07 19:05] LABS: Glucose,Whole Blood 167 mg/dL (70-110)
[2024-08-07] MEDS: SODIUM BICARB (1 MEQ/ML) 12.5 ML in DEXTROSE 5% IN WATER 500 ML IV SCH (19:30)
[2024-08-07 20:00] LABS: African American GFR (CKD) 31 (>60 ml/min/1.73 sqM); Anion Gap 20 mmol/L; Blood Urea Nitrogen 45 mg/dL (9-20); Calcium 7.4 mg/dL (8.4-10.2); Carbon Dioxide 10 mmol/L (22-30); Chloride 102 mmol/L (98-107); Glucose 166 mg/dL (74-99); Magnesium 2.3 mg/dL (1.6-2.3); Non-African American GFR(CKD) 27 (>60 ml/min/1.73 sqM); Potassium 5.2 mmol/L (3.5-5.1); Sodium 132 mmol/L (137-145)
[2024-08-07] MEDS ORDERED: fentaNYL (PF). 1,000 MCG in SODIUM CHLORIDE 0.9% 80 ML IV SCH (20:00)
[2024-08-07 20:03] LABS: Basophils % (A) 0 %; Eosinophils % (A) 0 %; HCT 39.6 % (39.0-53.0); HGB 12.7 gm/dL (13.0-17.5); Hypochromasia Slight; Lymphocytes % (A) 6 %; MCH 32.2 pg (25.0-35.0); MCV 100.5 fL (80.0-100.0); Macrocytosis Slight; Mean Platelet Volume 9.3; Monocytes # (A) 1.1 k/uL (0-1.0); Monocytes % (A) 6 %; Neutrophils # (A) 14.9 k/uL (1.3-7.7); Neutrophils % (A) 87 %; Platelet Count 188 k/uL (150-450); RBC 3.95 m/uL (4.30-5.90); RDW 14.2 % (11.5-15.5); WBC 17.1 k/uL (3.8-10.6)
[2024-08-07 20:04] LABS: ABG Base Excess -14.1 mmol/L; ABG HCO3 11 mmol/L (21-25); ABG Oxygen Saturation 99.8 % (94-97); ABG PCO2 26 mmHg (35-45); ABG PH 7.25 (7.35-7.45); ABG PO2 298 mmHg (83-108); ABG TCO2 12 mmol/L (19-24); Allen Test Performed? Yes
[2024-08-07] MEDS: fentaNYL (PF). 1,000 MCG in SODIUM CHLORIDE 0.9% 80 ML IV SCH (20:42)
[2024-08-07 20:46] LABS: Fibrinogen 328 mg/dL (200-500); INR 1.7 (<1.2); Prothrombin Time 17.5 sec (10.0-12.5)
[2024-08-07] MEDS: SODIUM CHLORIDE 0.9% 500 ML 500 ML IV ONE ×2 (21:30→22:31)
[2024-08-07] MEDS: CHLORHEXIDINE GLUCONATE 15 ML CUP MUCOUS MEM SCH (21:45)
[2024-08-07 22:20] LABS: Partial Thromboplastin Time >200.0 sec (22.0-30.0)
--- NOTE | 2024-08-07 22:30 | P.CARDCATH ---
Description of Procedure: PROCEDURES PERFORMED: Left heart catheterization, right heart catheterization, bilateral coronary angiography, ultrasound guided arterial access, Impella CP placement, left femoral to right antegrade SFA external bypass INDICATION: Cardiogenic shock, NSTEMI, cardiac arrest PROCEDURE: Patient was intubated and sedated with no next of kin available and taken for emergency catheterization after cardiac arrest. Patient was taken to the catheterization lab and prepped and draped in usual fashion. Ultrasound guidance was used to assess for arterial access. 1% lidocaine was used to anesthetize the right femoral artery. A 6-Turkish sheath was placed in the right femoral artery and additional 6 Fr sheath in the left femoral vein using modified Seldinger technique and ultrasound guidance. A 6Fr Elsah Edna catheter was inserted into the RA, RV, PA and PCWP position and right heart catheterization was performed with pressure measurements and oxygen saturations were performed. Thermodilution was performed and showed severe low cardiac index 1.3 L/min/m2. Therefore the decision was made to place an Impella. Heparin was given. The right femoral angiogram showed adequate anatomy for placement of Impella CP. 2 Preclose Percloses were placed in the right femoral artery at 10 and 2 O'clock. The 6Fr sheath was exchanged for a 14 Fr sheath. A 6Fr pigtail catheter was placed in the LV and a 0.018 wire was placed in the LV and used to place an Impella CP in the LV. Impella had adequate output with 3.5L/min and patient lost pulsatility. A 6Fr sheath was placed through the 14 Fr sheath at the 12 O'clock position. Left coronary angiography was performed with a 5-Turkish JL 4.0 catheter and right coronary angiography was performed with a 5-Turkish FR4 catheter in various views. Repeat right heart catheterization showed some improvement in cardiac outpt and cardiac index. Right femoral angiogram through the 14 Fr sheath showed this was occlusive. Therefore the sheath was torn away. A 6Fr sheath was placed in the left femoral artery using ultrasound guidance. A 6Fr rim catheter was used to perform angiogram of the right femoral artery which showed the Impella was still occlusive. Therefore decision made to place an external bypass. A 6Fr sheath was placed in an antegrade fashion in the right femoral ar jessie using ultrasound guidance. The left femoral and sheath was connected to the right SFA sheath to supply external bypass. The sheaths were sutured in place. The patient tolerated the procedure well. Patient was transported back to the ICU. Conscious Sedation: Patient was monitored under the direct supervision of myself for conscious sedation using Versed and fentanyl for a total duration of 83 minutes HEMODYNAMICS: Ao: 85/68 LV: 81/16 LVEDP 31 PCWP: 30 with V wave 55 PA: 60/30 RV: 55/17 RA: 25 CO by thermo pre Impella: 2.43 L/min CI by thermo pre Impella: 1.19 L/min/m2 SELECTIVE CORONARY ARTERIOGRAPHY: LEFT MAIN: The left main is a large caliber vessel which trifurcates into the LAD. ramus and circumflex. There is no significant stenosis. LEFT ANTERIOR DESCENDING CORONARY ARTERY: LAD is a large caliber vessel which wraps around to the apex. There is a patent LAD stent and 20-30% proximal and mid LAD stenosis. RAMUS INTERMEDIUS: The ramus is a small caliber vessel with 40-50% proximal stenosis LEFT CIRCUMFLEX CORONARY ARTERY: Left circumflex is a moderate caliber vessel with 10-20% stenosis. RIGHT CORONARY ARTERY: The right coronary artery is a large caliber vessel which gives off a PDA and PLV branch and is the dominant vessel. There is mild 20-30% proximal and mid RCA stenosis FINAL IMPRESSION: 1. Mild CAD as described above 2. Severely elevated left and right sided filling pressures 3. Cardiogenic shock with severely low CO/CI 4. S/p Impella CP placement PLAN: 1. Aggressive risk factor modification per most recent ACC/AHA guidelines. 2. Continue Impella CP and wean as able. Monitor response of LV unloading on right sided pressures.
[2024-08-07] MEDS: DOPamine DRIP 800 MG in DEXTROSE/WATER 1 250ML.BAG IV SCH (22:46)
[2024-08-07] MEDS: SODIUM BICARB 8.4% 50 ML SYR (1 MEQ/ML) IV STA ×2 (23:38→23:40)
[2024-08-07] MEDS: EPINEPHrine 4 MG in DEXTROSE 5% IN WATER 250 ML IV SCH (23:55)
[2024-08-08] MEDS: NITROGLYCERIN-D5W PMX 50 MG in DEXTROSE/WATER 1 250ML.BAG IV SCH (00:10)
[2024-08-08 00:15] LABS: Allen Test Performed? Yes
[2024-08-08 00:16] LABS: ABG HCO3 8 mmol/L (21-25); ABG PCO2 32 mmHg (35-45); ABG PH 6.97 (7.35-7.45); ABG PO2 270 mmHg (83-108); ABG TCO2 9 mmol/L (19-24)
[2024-08-08 00:17] LABS: ABG Base Excess -22.9 mmol/L
[2024-08-08 00:52] LABS: VBG PH 6.89 (7.31-7.41)
[2024-08-08] MEDS: FUROSEMIDE 10 MG/ML 10 ML VIAL IV STA (00:52)
--- NOTE | 2024-08-08 01:43 | P.PN ---
Subjective Progress Note Date: 08/08/24 HISTORY OF PRESENTING ILLNESS 63-year-old male with past medical history of CAD s/p PCI to his mid LAD when he presented with NSTEMI in 2019 He reports that he smokes a pack per day denies any alcohol or recreational drug use marijuana use. He initially presented to [facility] with increased worsening shortness of breath, increased work of breathing, dyspnea on exertion, paroxysmal nocturnal dyspnea. Patient is not able to provide much history as he is significantly short of breath and is at increased work of breathing. He currently follows up with Dr. Medellin. On admission he is hypotensive with blood pressure systolic around 80s, he appears mildly volume overloaded with pulmonary congestion on chest x-ray. He also has elevated JVD. His heart rate is high in 130s to 140s with atrial fibrillation rhythm. Chest x-ray shows cardiomegaly as well. Admission labs shows hemoglobin 13, creatinine 1, troponin 0.2, TSH 2.5. He received 1 dose of IV Lasix 40 with minimal urine output. On evaluation, I have immediately put him on BiPAP. He was doing well until he ripped off his BiPAP and but hypoxic and agitated. At that time patient had a run of ventricular tachycardia and became pulseless. Patient did have brief chest compressions done with 1 round of epi. He was intubated promptly. After intubation and stabilization on pressors he was taken to the [facility] for Imp romeo placement. Cardiac cath did not show any significant obstructive coronary artery disease. Bedside echocardiogram showed an EF of 5 to 10% with globally reduced LV systolic function, akinetic anteroseptal wall. Impella was placed. [place]-Edna catheter was placed. Left femoral to right femoral antegrade stick was placed for perfusion of the right leg. 08/08/2024 Around 10 PM 08/07/2024, cardiology was contacted because patient was having suction alarms on Impella. I promptly evaluated the patient. On bedside evaluation I performed a bedside echocardiogram which showed severely dilated right ventricle with PA pressure 30/20, CVP 24. Bob score 0.7. This is suggestive of RV failure. For this I contacted the beverage specialist on-call who recommended medical management for cardiogenic shock and Impella troubleshooting. At that time I gave him a total of 1.5 L of fluid bolus, 1 amp of epinephrine, 2 amp of bicarb, 1 started him on epinephrine drip, low-dose nitro drip, reduced PEEP to 5 from 8. This improved RV function and RV returned back to his size. Repeat PA pressures 65/30, with better waveform, CVP of 20. His blood pressure improved with 100/70 with improved pulsatility. His cardiac output improved. PHYSICAL EXAMINATION Vital signs reviewed. Neck: Central line in place Lungs: ET tube in place, on ventilator support Heart: Very poor pulse because of poor personality. Warm extremities. Febrile pulse noticed bilateral lower extremity using vascular Doppler. Impella in place in right groin, left femoral sheath in place with [id number] antegrade bypass stick for right leg perfusion. Appropriately functioning. Abdomen: Hypoactive Neuro: Alert, oritented, no focal deficits. Detailed neuro exam was not performed. ASSESSMENT Cardiogenic Shock Anuric ATN with cardiorenal syndrome Vent dependant respiratory failure NSTEMI, type II due to above Mild transaminitis, likely congestive hepatopathy Tobacco smoker heavy Non compliance to medications Prior show CAD status post PCI to mid LAD Essential hypertension, dyslipidemia Pertinent data ABG shows metabolic acidosis with respiratory alkalosis, Cardiac output around 3 Telemetry shows sinus rhythm Bedside echo showed appropriately placed Impella, 2.5 cm in LVOT from aortic valve, dilated LV cavity, Plan Obtain updated labs, lactate, CMP every 4 hours Monitor PTT levels, continue heparin drip Continue epinephrine drip for some time. Consider switching her to norepinephrine drip in 2 to 3 hours. Continue low-dose nitro drip for afterload reduction and nephro perfusion Give additional dose of Lasix 80 mg now that blood pressure is better to see if patient makes any urine. If no urine tomorrow morning, consult nephrology for emergent hemodialysis After hemodialysis is set up, consider transfer to advanced heart failure center like [facility]. Prognosis is very guarded. I did detailed discussion with patient's son who is at bedside and patient's sister over phone. They understand patient's poor prognosis. Objective - Vital Signs Vital signs: Vital Signs Temp 95 F L 08/08/24 00:00 Pulse 60 08/08/24 01:00 Resp 28 H 08/08/24 01:00 BP 84/57 08/07/24 16:44 Pulse Ox 98 08/08/24 01:00 FiO2 80 08/08/24 00:25 Intake & Output 08/07/24 08/07/2408/08/24 06:59 18:59 06:59 Intake Total 238.794 694.606 669.104 Output Total 12 Balance 238.794 694.606 657.104 Intake: IV 500 354 0.9 KVO 120 CO/CI 180 Pressure bag 54 Intake, IV Titration 238.794 194.606 315.104 Amount Amiodarone 450 mg In 87.224 Dextrose 5% in Water 250 ml @ 0.5 MG/MIN 16.667 mls/hr IV .Q15H ABIGAIL Rx#: [id number] Diltiazem 125 mg In 108.833 58.5 Sodium Chloride 0.9% 100 ml @ 5 MG/HR 5 mls/hr IV .Q24H ABIGAIL Rx#:[id number] Heparin Sod,Pork in 0.45% 129.961 136.106 136.006 NaCl 25,000 unit In 0.45 % NaCl 1 250ml.bag @ 11.6 UNITS/KG/HR 9.997 mls/hr IV .Q24H ABIGAIL Rx#: [id number] propofoL 1,000 mg In 91.874 Empty Bag 1 bag @ 15 MCG/ KG/MIN 7.757 mls/hr IV . [id number] ABIGAIL Rx#:[id number] Output: Urine 12 ABP, PAP, CO, CI - Last Documented Arterial Blood Pressure 45/38 Pulmonary Artery Pressure 45/20 Cardiac Output 3.4 Cardiac Index 1.7 - Labs CBC & Chem 7: 08/07/24 19:30 08/07/24 19:30 Labs: Abnormal Lab Results - Last 24 Hours (Table) 08/07/24 08/07/24 08/07/24 Range/Units 06:28 10:05 13:15 WBC (3.8-10.6) k/uL RBC (4.30-5.90) m/uL Hgb (13.0-17.5) gm/dL MCV (80.0-100.0) fL Neutrophils # (1.3-7.7) k/uL Monocytes # (0-1.0) k/uL PT (10.0-12.5) sec INR (<1.2) APTT 36.5 H 35.6 H (22.0-30.0) sec ABG pH (7.35-7.45) ABG pCO2 22 L (35-45) mmHg ABG pO2 172 H (83-108) mmHg ABG HCO3 14 L (21-25) mmol/L ABG Total CO2 15 L (19-24) mmol/L ABG O2 Saturation 100.0 H (94-97) % VBG pH (7.31-7.41) VBG pCO2 (37-51) mmHg VBG HCO3 (24-28) mmol/L Hemoglobin (13.0-17.5) gm/dL Sodium (137-145) mmol/L Potassium (3.5-5.1) mmol/L Carbon Dioxide (22-30) mmol/L BUN (9-20) mg/dL Creatinine (0.66-1.25) mg/dL Glucose (74-99) mg/dL POC Glucose (mg/dL) (70-110) mg/dL Calcium (8.4-10.2) mg/dL Total Bilirubin (0.2-1.3) mg/dL AST (17-59) U/L ALT (4-49) U/L 08/07/24 08/07/24 08/07/24 Range/Units 14:05 14:05 15:07 WBC 16.4 H (3.8-10.6) k/uL RBC 4.19 L (4.30-5.90) m/uL Hgb (13.0-17.5) gm/dL MCV (80.0-100.0) fL Neutrophils # 13.4 H (1.3-7.7) k/uL Monocytes # (0-1.0) k/uL PT (10.0-12.5) sec INR (<1.2) APTT (22.0-30.0) sec ABG pH 7.13 L* (7.35-7.45) ABG pCO2 (35-45) mmHg ABG pO2 139 H (83-108) mmHg ABG HCO3 12 L (21-25) mmol/L ABG Total CO2 13 L (19-24) mmol/L ABG O2 Saturation 97.7 H (94-97) % VBG pH (7.31-7.41) VBG pCO2 (37-51) mmHg VBG HCO3 (24-28) mmol/L Hemoglobin (13.0-17.5) gm/dL Sodium 134 L (137-145) mmol/L Potassium (3.5-5.1) mmol/L Carbon Dioxide 15 L (22-30) mmol/L BUN 40 H (9-20) mg/dL Creatinine 1.93 H (0.66-1.25) mg/dL Glucose 134 H (74-99) mg/dL POC Glucose (mg/dL) (70-110) mg/dL Calcium (8.4-10.2) mg/dL Total Bilirubin 2.7 H (0.2-1.3) mg/dL AST 174 H (17-59) U/L ALT 339 H (4-49) U/L 08/07/24 08/07/24 08/07/24 Range/Units 19:02 19:30 19:30 WBC 17.1 H (3.8-10.6) k/uL RBC 3.95 L (4.30-5.90) m/uL Hgb 12.7 L (13.0-17.5) gm/dL MCV 100.5 H (80.0-100.0) fL Neutrophils # 14.9 H (1.3-7.7) k/uL Monocytes # 1.1 H (0-1.0) k/uL PT 17.5 H (10.0-12.5) sec INR 1.7 H (<1.2) APTT >200.0 H* (22.0-30.0) sec ABG pH (7.35-7.45) ABG pCO2 (35-45) mmHg ABG pO2 (83-108) mmHg ABG HCO3 (21-25) mmol/L ABG Total CO2 (19-24) mmol/L ABG O2 Saturation (94-97) % VBG pH (7.31-7.41) VBG pCO2 (37-51) mmHg VBG HCO3 (24-28) mmol/L Hemoglobin (13.0-17.5) gm/dL Sodium (137-145) mmol/L Potassium (3.5-5.1) mmol/L Carbon Dioxide (22-30) mmol/L BUN (9-20) mg/dL Creatinine (0.66-1.25) mg/dL Glucose (74-99) mg/dL POC Glucose (mg/dL) 167 H (70-110) mg/dL Calcium (8.4-10.2) mg/dL Total Bilirubin (0.2-1.3) mg/dL AST (17-59) U/L ALT (4-49) U/L 08/07/24 08/07/24 08/08/24 Range/Units 19:30 19:59 00:14 WBC (3.8-10.6) k/uL RBC (4.30-5.90) m/uL Hgb (13.0-17.5) gm/dL MCV (80.0-100.0) fL Neutrophils # (1.3-7.7) k/uL Monocytes # (0-1.0) k/uL PT (10.0-12.5) sec INR (<1.2) APTT (22.0-30.0) sec ABG pH 7.25 L 6.97 L* (7.35-7.45) ABG pCO2 26 L 32 L (35-45) mmHg ABG pO2 298 H 270 H (83-108) mmHg ABG HCO3 11 L 8 L* (21-25) mmol/L ABG Total CO2 12 L 9 L (19-24) mmol/L ABG O2 Saturation 99.8 H 99.0 H (94-97) % VBG pH (7.31-7.41) VBG pCO2 (37-51) mmHg VBG HCO3 (24-28) mmol/L Hemoglobin 12.9 L (13.0-17.5) gm/dL Sodium 132 L (137-145) mmol/L Potassium 5.2 H (3.5-5.1) mmol/L Carbon Dioxide 10 L (22-30) mmol/L BUN 45 H (9-20) mg/dL Creatinine 2.47 H (0.66-1.25) mg/dL Glucose 166 H (74-99) mg/dL POC Glucose (mg/dL) (70-110) mg/dL Calcium 7.4 L (8.4-10.2) mg/dL Total Bilirubin (0.2-1.3) mg/dL AST (17-59) U/L ALT (4-49) U/L 08/08/24 Range/Units 00:35 WBC (3.8-10.6) k/uL RBC (4.30-5.90) m/uL Hgb (13.0-17.5) gm/dL MCV (80.0-100.0) fL Neutrophils # (1.3-7.7) k/uL Monocytes # (0-1.0) k/uL PT (10.0-12.5) sec INR (<1.2) APTT (22.0-30.0) sec ABG pH (7.35-7.45) ABG pCO2 (35-45) mmHg ABG pO2 (83-108) mmHg ABG HCO3 (21-25) mmol/L ABG Total CO2 (19-24) mmol/L ABG O2 Saturation (94-97) % VBG pH 6.89 L* (7.31-7.41) VBG pCO2 31 L (37-51) mmHg VBG HCO3 6 L* (24-28) mmol/L Hemoglobin (13.0-17.5) gm/dL Sodium (137-145) mmol/L Potassium (3.5-5.1) mmol/L Carbon Dioxide (22-30) mmol/L BUN (9-20) mg/dL Creatinine (0.66-1.25) mg/dL Glucose (74-99) mg/dL POC Glucose (mg/dL) (70-110) mg/dL Calcium (8.4-10.2) mg/dL Total Bilirubin (0.2-1.3) mg/dL AST (17-59) U/L ALT (4-49) U/L
[2024-08-08 02:02] LABS: African American GFR (CKD) 23 (>60 ml/min/1.73 sqM); Albumin 3.2 g/dL (3.5-5.0); Alkaline Phosphatase 66 U/L (38-126); Blood Urea Nitrogen 40 mg/dL (9-20); Chloride 107 mmol/L (98-107); Glucose 109 mg/dL (74-99); Non-African American GFR(CKD) 20 (>60 ml/min/1.73 sqM); Potassium 4.7 mmol/L (3.5-5.1); Sodium 139 mmol/L (137-145); Total Bilirubin 3.9 mg/dL (0.2-1.3); Total Protein 5.3 g/dL (6.3-8.2)
[2024-08-08 02:48] LABS: Glucose,Whole Blood 125 mg/dL (70-110)
[2024-08-08 02:50] LABS: Carbon Dioxide <5 mmol/L (22-30)
[2024-08-08 02:51] LABS: ALT 3263 U/L (4-49); AST 2480 U/L (17-59)
[2024-08-08 04:01] LABS: HCT 36.3 % (39.0-53.0); HGB 11.7 gm/dL (13.0-17.5); Hypochromasia Marked; MCH 34.8 pg (25.0-35.0); MCHC 32.2 g/dL (31.0-37.0); Macrocytosis Marked; Mean Platelet Volume 10.4; Platelet Count 138 k/uL (150-450); RBC 3.36 m/uL (4.30-5.90); RDW 14.7 % (11.5-15.5)
[2024-08-08] MEDS: SODIUM BICARB 8.4% 50 ML SYR (1 MEQ/ML) IV STA ×3 (05:00→08:35)
[2024-08-08 05:12] LABS: Band Neutrophils % 2 %; Eosinophils # (M) 0.18 k/uL (0-0.7); Lymphocytes # (M) 4.03 k/uL (1.0-4.8); Metamyelocytes # (M) 0.18 k/uL (0); Metamyelocytes % 1 %; Monocytes # (M) 0.55 k/uL (0-1.0); Neutrophils % (M) 72 %; Nucleated Red Blood Cells 3 /100 WBC (0-0); Total Cells Counted 200; WBC 18.3 k/uL (3.8-10.6)
[2024-08-08 05:14] LABS: Polychromasia Present; Tear Drop Cells Present
[2024-08-08 05:26] LABS: African American GFR (CKD) 19 (>60 ml/min/1.73 sqM); Albumin 3.4 g/dL (3.5-5.0); Alkaline Phosphatase 61 U/L (38-126); Blood Urea Nitrogen 40 mg/dL (9-20); Chloride 101 mmol/L (98-107); Glucose 100 mg/dL (74-99); Non-African American GFR(CKD) 16 (>60 ml/min/1.73 sqM); Sodium 136 mmol/L (137-145); Total Bilirubin 4.8 mg/dL (0.2-1.3); Total Protein 5.6 g/dL (6.3-8.2)
[2024-08-08 05:50] LABS: ABG Base Excess -29.2 mmol/L; ABG Oxygen Saturation 98.9 % (94-97); ABG PCO2 23 mmHg (35-45); ABG PO2 270 mmHg (83-108); ABG TCO2 4 mmol/L (19-24); Allen Test Performed? Yes
[2024-08-08 05:51] LABS: Partial Thromboplastin Time 49.1 sec (22.0-30.0)
[2024-08-08 05:55] LABS: Calcium 6.3 mg/dL (8.4-10.2)
[2024-08-08 05:56] LABS: ALT 6520 U/L (4-49); AST 6227 U/L (17-59); Carbon Dioxide <5 mmol/L (22-30)
[2024-08-08 06:42] LABS: ABG HCO3 4 mmol/L (21-25); ABG PH 6.82 (7.35-7.45)
--- NOTE | 2024-08-08 06:48 | XR ---
EXAMINATION TYPE: XR chest 1V portable DATE OF EXAM: 08/08/2024 COMPARISON: 08/07/2024 HISTORY: LVAD placement TECHNIQUE: Single frontal view of the chest is obtained. FINDINGS: An LVAD device has been placed which appears to be in satisfactory position. ET tube is 4.3 cm above the yesseina. There is an NG tube within the stomach. There is a [place]-Edna catheter the tip of which is in the right pulmonary artery. There is persistent cardiomegaly. There is hazy opacity in the right mid and lower lung zone somewhat improved compared to the prior study presumably decreasing pulmonary edema. There is minimal scarrin g or fibrosis in left midlung. Left lung base is well aerated. There is no pneumothorax. IMPRESSION: 1. Placement of an LVAD device. 2. Improving aeration in the right lung as described above. 3 ET tube 4.3 cm above the yessenia. [facility], , 08/08/2024 6:45 AM
[2024-08-08 07:27] LABS: Chol/HDL Ratio 3.58 Ratio; VLDL Calculation 12.24 mg/dL (5.00-40.00)
[2024-08-08] MEDS: PANTOPRAZOLE 40 MG TABLET PO SCH (07:47)
[2024-08-08 09:26] LABS: African American GFR (CKD) 17 (>60 ml/min/1.73 sqM); Albumin 3.2 g/dL (3.5-5.0); Blood Urea Nitrogen 42 mg/dL (9-20); Chloride 98 mmol/L (98-107); Glucose 106 mg/dL (74-99); Non-African American GFR(CKD) 14 (>60 ml/min/1.73 sqM); Sodium 138 mmol/L (137-145); Total Bilirubin 4.9 mg/dL (0.2-1.3); Total Protein 5.3 g/dL (6.3-8.2)
[2024-08-08 09:43] LABS: Calcium 6.1 mg/dL (8.4-10.2); Carbon Dioxide <5 mmol/L (22-30)
[2024-08-08 09:45] LABS: Alkaline Phosphatase 66 U/L (38-126); Potassium 5.4 mmol/L (3.5-5.1)
[2024-08-08] MEDS: methylPREDNISolone SOD SUCCI 125 MG/2 ML VIAL IV STA (09:59)
[2024-08-08] MEDS: DEXTROSE 50% SYRINGE 50 ML IVP ONE (09:59)
[2024-08-08] MEDS: CALCIUM GLUCONATE IN NACL 1 GM in SALINE 1 100ML.BAG IVPB ONE (10:00)
[2024-08-08] MEDS: INSULIN REGULAR 100 UNIT/ML VIAL (IV) IV ONE (10:00)
[2024-08-08 10:14] LABS: ALT 9088 U/L (4-49); AST 9557 U/L (17-59); LDH >10000 U/L (120-246)
--- NOTE | 2024-08-08 11:11 | P.NPCON ---
History of Present Illness - Reason for Consult acute renal failure - History of Present Illness patient is a 63-year-old male with history of coronary artery disease and cardiomyopathy who was admitted to the hospital with anxiety and shortness of breath. Patient was initially noted to be in A. fib with RVR along with CHF and volume overload. Patient had a brief cardiac arrest with V. fib. He was intubated and taken to cardiac bobcat driver/labor. There was no significant stenosis identified and patient had M Niya placed due to persistent severe hypotension and cardiogenic shock. Labs reveal significant acidosis with serum bicarb less than 5. He has been oliguric. He did not tolerate levo fed of vasopressin and is maintained on epinephrine drip. Potassium was elevated at 6.1. Patient did not tolerate dobutamine. Serum Creatinine 1.0 on admission and is 4.1 today. Past Medical History Past Medical History: Coronary Artery Disease (CAD), Heart Failure, Myocardial Infarction (NV) Additional Past Medical History / Comment(s): 1 stent to LAD(01/2019) Last Myocardial Infarction Date:: 01/2019 History of Any Multi-Drug Resistant Organisms: None Reported Past Surgical History: Heart Catheterization With Stent Additional Past Surgical History / Comment(s): bilateral knee, abd sx when child Additional Past Anesthesia/Blood Transfusion Reaction / Comment(s): unable to answer Date of Last Stent Placement:: 01/2019 Past Psychological History: No Psychological Hx Reported Smoking Status: Former smoker Past Alcohol Use History: Unable to Obtain Past Drug Use History: None Reported - Past Family History Father Additional Family Medical History / Comment(s): father on dialysis Medications and Allergies Home Medications Medication Instructions Recorded Confirmed Type Atorvastatin [Lipitor] 80 mg PO HS #90 tab 01/31/19 08/06/24 Rx Aspirin EC [Ecotrin Low Dose] 81 mg PO BID 08/06/24 08/06/24 History Metoprolol Tartrate [Lopressor] 25 mg PO BID 08/06/24 08/06/24 History Allergies Allergy/AdvReac Type Severity Reaction Status Date / Time Penicillins Allergy Unknown Verified 08/06/24 12:31 Physical Exam Vitals: Vital Signs Temp Pulse Pulse Resp BP BP Pulse Ox 08/08/24 10:10 08/08/24 09:15 62 63 H 79 L 08/08/24 09:02 08/08/24 09:00 62 79 L 08/08/24 08:45 64 79 L 08/08/24 08:30 61 72 L 08/08/24 08:15 61 71 L 08/08/24 08:00 61 72 L 08/08/24 07:45 61 69 L 08/08/24 07:30 63 28 H 08/08/24 07:15 70 28 H 08/08/24 07:00 59 L 28 H 08/08/24 06:45 59 L 28 H 08/08/24 06:30 60 28 H 08/08/24 06:15 60 28 H 08/08/24 06:00 60 28 H 08/08/24 05:49 08/08/24 05:45 59 L 28 H 08/08/24 05:30 59 L 28 H 08/08/24 05:15 63 28 H 73 L 08/08/24 05:00 47 L 28 H 08/08/24 04:45 53 L 28 H 08/08/24 04:30 53 L 28 H 08/08/24 04:15 53 L 28 H 08/08/24 04:00 55 L 28 H 63 L 08/08/24 03:49 08/08/24 03:45 56 L 28 H 08/08/24 03:30 56 L 28 H 08/08/24 03:15 58 L 28 H 08/08/24 03:00 59 L 28 H 66 L 08/08/24 02:45 59 L 28 H 66 L 08/08/24 02:30 60 28 H 64 L 08/08/24 02:15 60 28 H 63 L 08/08/24 02:00 60 28 H 62 L 08/08/24 01:45 60 28 H 58 L 08/08/24 01:30 60 28 H 52 L 08/08/24 01:15 60 28 H 08/08/24 01:00 60 28 H 98 08/08/24 00:45 59 L 28 H 99 08/08/24 00:30 59 L 28 H 98 08/08/24 00:25 08/08/24 00:15 59 L 28 H 99 08/08/24 00:00 95 F L 65 28 H 99 08/07/24 23:45 57 L 28 H 99 08/07/24 23:30 54 L 28 H 99 08/07/24 23:15 55 L 28 H 99 08/07/24 23:00 55 L 28 H 99 08/07/24 22:55 55 L 28 H 99 08/07/24 22:45 55 L 2 L 08/07/24 22:30 56 L 28 H 08/07/24 22:15 57 L 28 H 100 08/07/24 22:00 58 L 28 H 08/07/24 21:45 59 L 28 H 08/07/24 21:30 60 28 H 08/07/24 21:15 61 28 H 98 08/07/24 21:00 61 28 H 08/07/24 20:45 61 28 H 08/07/24 20:30 61 28 H 08/07/24 20:15 62 28 H 97 08/07/24 20:00 62 28 H 100 08/07/24 19:58 08/07/24 19:45 62 28 H 08/07/24 19:30 64 29 H 08/07/24 19:15 64 28 H 08/07/24 19:03 97.3 F L 65 28 H 98 08/07/24 16:44 87 24 84/57 100 08/07/24 16:15 66 23 85/56 99 08/07/24 16:11 70 29 H 97 08/07/24 15:15 68 22 86/61 100 08/07/24 15:14 08/07/24 15:00 70 20 71/56 77/57 08/07/24 14:59 08/07/24 14:45 71/56 08/07/24 14:30 101 H 89/56 100 08/07/24 14:15 105 H 94 30 H 89/56 71/56 100 08/07/24 14:00 98 98 30 H 94/65 89/56 08/07/24 13:45 98 32 H 83/39 08/07/24 13:30 108 H 26 H 92/21 08/07/24 13:22 08/07/24 13:15 118 H 26 H 92/21 08/07/24 13:05 08/07/24 13:00 134 H 29 H 85/55 96 08/07/24 12:45 137 H 28 H 85/55 08/07/24 12:30 134 H 21 96/47 08/07/24 12:15 137 H 26 H 106/82 97 08/07/24 12:00 141 H 25 H 105/79 97 08/07/24 11:45 140 H 34 H 101/87 98 08/07/24 11:30 140 H 35 H 108/80 94 L 08/07/24 11:15 141 H 56 H 113/77 95 FiO2 08/08/24 10:10 65 08/08/24 09:15 08/08/24 09:02 65 08/08/24 09:00 08/08/24 08:45 08/08/24 08:30 08/08/24 08:15 08/08/24 08:00 80 08/08/24 07:45 08/08/24 07:30 08/08/24 07:15 08/08/24 07:00 08/08/24 06:45 08/08/24 06:30 08/08/24 06:15 08/08/24 06:00 08/08/24 05:49 65 08/08/24 05:45 08/08/24 05:30 08/08/24 05:15 08/08/24 05:00 08/08/24 04:45 08/08/24 04:30 08/08/24 04:15 08/08/24 04:00 80 08/08/24 03:49 80 08/08/24 03:45 08/08/24 03:30 08/08/24 03:15 08/08/24 03:00 08/08/24 02:45 08/08/24 02:30 08/08/24 02:15 08/08/24 02:00 08/08/24 01:45 08/08/24 01:30 08/08/24 01:15 08/08/24 01:00 08/08/24 00:45 08/08/24 00:30 08/08/24 00:25 80 08/08/24 00:15 08/08/24 00:00 80 08/07/24 23:45 08/07/24 23:30 08/07/24 23:15 08/07/24 23:00 08/07/24 22:55 08/07/24 22:45 08/07/24 22:30 08/07/24 22:15 08/07/24 22:00 08/07/24 21:45 08/07/24 21:30 08/07/24 21:15 08/07/24 21:00 08/07/24 20:45 08/07/24 20:30 08/07/24 20:15 08/07/24 20:00 80 08/07/24 19:58 100 08/07/24 19:45 08/07/24 19:30 08/07/24 19:15 08/07/24 19:03 100 08/07/24 16:44 08/07/24 16:15 08/07/24 16:11 08/07/24 15:15 08/07/24 15:14 80 08/07/24 15:00 08/07/24 14:59 100 08/07/24 14:45 08/07/24 14:30 08/07/24 14:15 08/07/24 14:00 08/07/24 13:45 08/07/24 13:30 08/07/24 13:22 30 08/07/24 13:15 08/07/24 13:05 50 08/07/24 13:00 08/07/24 12:45 08/07/24 12:30 08/07/24 12:15 08/07/24 12:00 08/07/24 11:45 08/07/24 11:30 08/07/24 11:15 Intake and Output 08/07/24 08/08/24 08/08/24 22:59 06:59 14:59 Intake Total 1037.366 726.302 147 Output Total 5 7 0 Balance 1032.366 719.302 147 Intake: IV 677 432 147 0.9 KVO 60 160 60 CO/CI 90 200 60 Pressure bag 27 72 27 Intake, IV Titration 360.366 294.302 Amount Amiodarone 450 mg In 87.224 135.28 Dextrose 5% in Water 250 ml @ 0.5 MG/MIN 16.667 mls/hr IV .Q15H [facility]IGAIL Rx#: [id number] DOPamine DRIP 800 mg In 7.003 Dextrose/Water 1 250ml. bag @ 2.5 MCG/KG/MIN 4.04 mls/hr IV .Q24H ABIGAIL Rx#: [id number] Diltiazem 125 mg In 25.417 Sodium Chloride 0.9% 100 ml @ 5 MG/HR 5 mls/hr IV .Q24H ABIGAIL Rx#:[id number] EPINEPHrine 4 mg In 51.547 Dextrose 5% in Water 250 ml @ 0.03 MCG/KG/MIN 9. 696 mls/hr IV .Q24H ABIGAIL Rx#:[id number] Heparin Sod,Pork in 0.45% 136.006 NaCl 25,000 unit In 0.45 % NaCl 1 250ml.bag @ 11.6 UNITS/KG/HR 9.997 mls/hr IV .Q24H ABIGAIL Rx#: [id number] Norepinephrine 8 mg In 19.845 9.978 Sodium Chloride 0.9% 250 ml @ 0.03 MCG/KG/MIN 5. 003 mls/hr IV .Q24H ABIGAIL Rx#:[id number] propofoL 1,000 mg In 91.874 90.494 Empty Bag 1 bag @ 15 MCG/ KG/MIN 7.757 mls/hr IV . [id number] ABIGAIL Rx#:[id number] Output: Urine 5 7 0 Other: Voiding Method Indwelling Catheter Indwelling Catheter Indwelling Catheter Weight 98.7 kg ABP, PAP, CO, CI - Last 8 Hours Arterial Blood Pressure 43/32 Arterial Blood Pressure 43/32 Arterial Blood Pressure 40/30 Arterial Blood Pressure 45/28 Arterial Blood Pressure 41/33 Arterial Blood Pressure 41/33 Arterial Blood Pressure 41/33 Arterial Blood Pressure 41/34 Arterial Blood Pressure 52/41 Arterial Blood Pressure 42/34 Arterial Blood Pressure 43/35 Arterial Blood Pressure 42/35 Arterial Blood Pressure 43/35 Arterial Blood Pressure 41/34 Arterial Blood Pressure 42/34 Arterial Blood Pressure 41/34 Arterial Blood Pressure 41/35 Arterial Blood Pressure 32/29 Arterial Blood Pressure 32/29 Arterial Blood Pressure 33/31 Arterial Blood Pressure 34/32 Arterial Blood Pressure 35/33 Arterial Blood Pressure 36/33 Arterial Blood Pressure 36/32 Arterial Blood Pressure 37/32 Pulmonary Artery Pressure 40/18 Pulmonary Artery Pressure 40/18 Pulmonary Artery Pressure 39/17 Pulmonary Artery Pressure 44/16 Pulmonary Artery Pressure 41/17 Pulmonary Artery Pressure 40/17 Pulmonary Artery Pressure 40/17 Pulmonary Artery Pressure 41/19 Pulmonary Artery Pressure 46/21 Pulmonary Artery Pressure 41/18 Pulmonary Artery Pressure 42/18 Pulmonary Artery Pressure 41/18 Pulmonary Artery Pressure 42/20 Pulmonary Artery Pressure 42/18 Pulmonary Artery Pressure 42/19 Pulmonary Artery Pressure 42/19 Pulmonary Artery Pressure 43/20 Pulmonary Artery Pressure 38/16 Pulmonary Artery Pressure 37/16 Pulmonary Artery Pressure 35/17 Pulmonary Artery Pressure 36/17 Pulmonary Artery Pressure 36/18 Pulmonary Artery Pressure 35/18 Pulmonary Artery Pressure 34/18 Pulmonary Artery Pressure 38/17 Cardiac Output 5.9 Cardiac Output 5.9 Cardiac Output 5.9 Cardiac Output 5.9 Cardiac Output 5.9 Cardiac Output 5.9 Cardiac Output 5.9 Cardiac Output 5.9 Cardiac Output 4.3 Cardiac Output 4.4 Cardiac Output 4.4 Cardiac Output 3.4 Cardiac Output 3.5 Cardiac Output 4.4 Cardiac Index 2.9 Cardiac Index 2.9 Cardiac Index 2.9 Cardiac Index 2.9 Cardiac Index 2.9 Cardiac Index 2.9 Cardiac Index 2.9 Cardiac Index 2.9 Cardiac Index 2.1 Cardiac Index 2.2 Cardiac Index 2.2 Cardiac Index 1.7 Cardiac Index 1.7 Cardiac Index 2.2 patient is sedated and on the vent. He is currently having a right IJ temporary dialysis catheter placed. Abdomen is soft No edema noted in the legs. FiO2 is 65%. Results - Lab Results Most recent lab results ABG pH 6.82 (7.35-7.45) L* 08/08/24 05:49 ABG pCO2 23 mmHg (35-45) L 08/08/24 05:49 ABG pO2 270 mmHg (83-108) H 08/08/24 05:49 ABG HCO3 4 mmol/L (21-25) L* 08/08/24 05:49 ABG O2 Saturation 98.9 % (94-97) H 08/08/24 05:49 Calcium 6.1 mg/dL (8.4-10.2) L* 08/08/24 08:52 Magnesium 2.3 mg/dL (1.6-2.3) 08/07/24 19:30 08/08/24 02:47 08/08/24 08:52 Assessment and Plan Assessment: 1. Acute kidney injury, oliguric ATN secondary to cardiogenic shock 2. Severe metabolic acidosis secondary to hypoperfusion and cardiac arrest 3. Acute hypoxic respiratory failure 4. Hyperkalemia associated with severe acute kidney injury 5. History of coronary artery disease with previous history of NV 6. A. fib with RVR maintained on amiodarone Plan: start bicarb drip Will attempt sled procedure however given the severe hypotension patient is likely not going to tolerate renal replacement therapy. Overall prognosis is grave
--- NOTE | 2024-08-08 11:46 | PCN ---
PROCEDURE NOTE PREOPERATIVE DIAGNOSIS: Acute on chronic renal failure. POSTOPERATIVE DIAGNOSIS: Acute on chronic renal failure. PROCEDURE PERFORMED: Ultrasound-guided 16 cm dialysis catheter placed in right jugular approach. DESCRIPTION OF PROCEDURE: The patient was seen in his room. The right side of the neck and chest were prepped and drapes applied in sterile manner. 1% lidocaine plain infiltrated. Ultrasound-guided Micropuncture introduced into the left jugular vein. Micropuncture guidewire was passed, and a 4 Ethiopian dilator was advanced on top of the guidewire. Then, we passed a regular guidewire. Dilator was advanced. Then, we placed a 16 cm dialysis catheter. The guidewire was removed, flushed with heparin, saline, and hep-locked, secured with 3- 0 nylon. The patient tolerated the procedure well. Recommend x-ray of the chest. MMODL / IJN: [id number] /
--- NOTE | 2024-08-08 12:10 | P.PN ---
Subjective Progress Note Date: 08/08/24 63-year-old male patient, seen in the emergency department after he sustained a brief cardiac arrest. The patient is known to have coronary artery disease and the patient has had a previous anterior wall myocardial infarction back in 2019 requiring stenting of the LAD and he develops ischemic cardiomyopathy following that with impaired left-ventricular ejection fraction. Noted the patient has not been following up by cardiology since then. The patient came into the emergency department, having anxiety and increased shortness of breath. He was found to be in atrial fibrillation with rapid ventricular response. The patient was started initially on Cardizem drip and Cardizem drip was up to 50 mg an hour with poor response and his heart rate continued to be in the 130/140 range. The patient was in RVR. Subsequently, the patient was started on amiodarone drip and the patient became progressively more short of breath. His chest x-ray was consistent with pulmonary edema. The EKG showed atrial fibrillation with left axis deviation and interventricular conduction delay. The white cell count was at 16.4. The patient's proBNP level was 11,700 and a troponin levels were 0.2 and 0.2 and 0.2 respectively x 3. Initial creatinine was at 1.0. Subsequently, the patient became more short of breath, he was placed on a BiPAP. He did not tolerate the BiPAP and as he pulled off his BiPAP mask, the patient went int ventricular fibrillation. He was resuscitated according to the ACLS protocol. His downtime was around 2 minutes. He was given epinephrine, received CPR, intubated in the emergency department. At the time of my arrival, the patient was still hypotensive. Started the patient on norepinephrine which is currently running at 0.15 mcg/kg/min. The patient currently has a soft blood pressure with a systolic blood pressure ranging between 70 and 80. The patient remains in atrial fibrillation and his heart rate is under better control. A bedside echocardiogram was done and his ejection fraction is less than 10%. He has significant mitral regurgitation. He remains on IV heparin. Cardizem drip has been discontinued. Postintubation chest x-ray was consistent with pulmonary edema, asymmetric, right more than left. Establish a triple-lumen catheter. Pulses are quite diminished in all 4 extremities. The hematologic profile shows a white cell count of 16.4, hemoglobin 13.5 and a platelet count of 206. Post intubation and cardiac arrest blood gas showed a pH of 7.13 with a pCO2 of 36 and pO2 139 and this was done on assist-control mode of mechanical ventilation at rate of 20, tidal volume of 450, FiO2 of 100% and a PEEP of 5. 08/08/2024, the patient remains critically ill, intubated on the mechanical ventilator. The patient underwent an emergent cardiac catheterization the patient was found to have normal coronaries. An Impella was inserted for hemo dynamic support and the patient was brought into the intensive care unit intubated on the mechanical ventilator. This morning, the patient remains on propofol which is running at 10 mcg/kg/min. He is on assist-control mode of mechanical ventilation at a rate of 28, tidal volume of 400, FiO2 of 30% and PEEP of 5. The patient chest x-ray is consistent with pulmonary edema as the patient remains in cardiogenic shock. Blood gas showed a pH of 6.8 with a CO2 of 23 and a O2 of 270. His lactic acid level remains high, above 24. Serum bicarb is less than 5. He has developed an acute kidney injury with a BUN of 42 and a creatinine of 4.1. His anuretic. He has also developed shock liver with significant elevation of liver function test including AST, ALT and significant elevation of the LDH. His potassium level is currently at 5.4. He was started on bicarb infusion. Impella is set at P8 augmentation and is augmented blood pressure 74/35 with a mean of 52. He remains on epinephrine at 0.2 mcg/kg/min. He did undergo cardioversion in the emergency department yesterday by cardiology and his cardiac rhythm is back to sinus. Objective - Vital Signs Vital signs: Vital Signs Temp 95 F L 08/08/24 00:00 Pulse 63 08/08/24 07:30 Resp 28 H 08/08/24 07:30 BP 84/57 08/07/24 16:44 Pulse Ox 73 L 08/08/24 05:15 FiO2 65 08/08/24 05:49 Intake & Output 08/07/24 08/08/24 08/08/24 18:59 06:59 18:59 Intake Total 789.572 0907.668 49 Output Total 12 0 Balance 939.286 7451.668 49 Weight 98.7 kg Intake: IV 500 609 49 0.9 KVO 220 20 CO/CI 290 20 Pressure bag 99 9 Intake, IV Titration 194.606 654.668 Amount Amiodarone 450 mg In 222.504 Dextrose 5% in Water 250 ml @ 0.5 MG/MIN 16.667 mls/hr IV .Q15H [facility]IGAIL Rx#: [id number] DOPamine DRIP 800 mg In 7.003 Dextrose/Water 1 250ml. bag @ 2.5 MCG/KG/MIN 4.04 mls/hr IV .Q24H [facility]IGAIL Rx#: [id number] Diltiazem 125 mg In 58.5 25.417 Sodium Chloride 0.9% 100 ml @ 5 MG/HR 5 mls/hr IV .Q24H [facility]IGAIL Rx#:[id number] EPINEPHrine 4 mg In 51.547 Dextrose 5% in Water 250 ml @ 0.03 MCG/KG/MIN 9. 696 mls/hr IV .Q24H [facility]IGAIL Rx#:[id number] Heparin Sod,Pork in 0.45% 136.106 136.006 NaCl 25,000 unit In 0.45 % NaCl 1 250ml.bag @ 11.6 UNITS/KG/HR 9.997 mls/hr IV .Q24H [facility]IGAIL Rx#: [id number] Norepinephrine 8 mg In 29.823 Sodium Chloride 0.9% 250 ml @ 0.03 MCG/KG/MIN 5. 003 mls/hr IV .Q24H [facility]IG[facility] Rx#:[id number] propofoL 1,000 mg In 182.368 Empty Bag 1 bag @ 15 MCG/ KG/MIN 7.757 mls/hr IV . [id number] [facility]IGAIL Rx#:[id number] Output: Urine 12 0 Other: Voiding Method Indwelling Catheter ABP, PAP, CO, CI - Last Documented Arterial Blood Pressure 41/34 Pulmonary Artery Pressure 41/19 Cardiac Output 5.9 Cardiac Index 2.9 - Exam The patient is sedated, current intubated on mechanical ventilator. Orogastric and orotracheal tube are both in place. Head exam is unremarkable. No scleral icterus or corneal arcus noted. Neck is with jugular venous distension, thyromegaly, or carotid bruits. Carotid upstrokes are brisk bilaterally. Lungs are diminished bilaterally along with bibasilar crackles Cardiac exam reveals the PMI to be normally sized and situated. Rhythm is irregular with an S3 gallop.. First and second heart sounds normal. No murmurs, rubs and there is an S3 gallops. Abdominal exam reveals normal bowel sounds, no masses, no organomegaly and no aortic enlargement. Extremities are nonedematous and both femoral and pedal pulses are diminished in the extremities are cold. The patient skin is mottled and the patient is cold and clammy with markedly diminished pulses in all 4 extremities Examination of the skin revealed no evidence of significant rashes, suspicious appearing nevi or other concerning lesions. Neurologically, the patient is is sedated. Pupils are round to 3 mm in size, sluggishly reactive to light. No nystagmus. No clonus. Motor and sensory function cannot be established. - Labs CBC & Chem 7: 08/08/24 02:47 08/08/24 08:52 Labs: Abnormal Lab Results - Last 24 Hours (Table) 08/07/24 08/07/24 08/07/24 Range/Units 10:05 13:15 14:05 WBC (3.8-10.6) k/uL RBC (4.30-5.90) m/uL Hgb (13.0-17.5) gm/dL Hct (39.0-53.0) % MCV (80.0-100.0) fL Plt Count (150-450) k/uL Neutrophils # (1.3-7.7) k/uL Neutrophils # (Manual) (1.3-7.7) k/uL Monocytes # (0-1.0) k/uL Metamyelocytes # (Man) (0) k/uL Nucleated RBCs (0-0) /100 WBC Macrocytosis PT (10.0-12.5) sec INR (<1.2) APTT 35.6 H (22.0-30.0) sec ABG pH (7.35-7.45) ABG pCO2 22 L (35-45) mmHg ABG pO2 172 H (83-108) mmHg ABG HCO3 14 L (21-25) mmol/L ABG Total CO2 15 L (19-24) mmol/L ABG O2 Saturation 100.0 H (94-97) % ABG Lactic Acid (0.5-1.6) mmol/L VBG pH (7.31-7.41) VBG pCO2 (37-51) mmHg VBG HCO3 (24-28) mmol/L Hemoglobin (13.0-17.5) gm/dL Sodium 134 L (137-145) mmol/L Potassium (3.5-5.1) mmol/L Carbon Dioxide 15 L (22-30) mmol/L BUN 40 H (9-20) mg/dL Creatinine 1.93 H (0.66-1.25) mg/dL Glucose 134 H (74-99) mg/dL POC Glucose (mg/dL) (70-110) mg/dL Calcium (8.4-10.2) mg/dL Total Bilirubin 2.7 H (0.2-1.3) mg/dL AST 174 H (17-59) U/L ALT 339 H (4-49) U/L Lactate Dehydrogenase (120-246) U/L Total Protein (6.3-8.2) g/dL Albumin (3.5-5.0) g/dL HDL Cholesterol 35.80 L (40.00-60.00) mg/dL 08/07/24 08/07/24 08/07/24 Range/Units 14:05 15:07 19:02 WBC 16.4 H (3.8-10.6) k/uL RBC 4.19 L (4.30-5.90) m/uL Hgb (13.0-17.5) gm/dL Hct (39.0-53.0) % MCV (80.0-100.0) fL Plt Count (150-450) k/uL Neutrophils # 13.4 H (1.3-7.7) k/uL Neutrophils # (Manual) (1.3-7.7) k/uL Monocytes # (0-1.0) k/uL Metamyelocytes # (Man) (0) k/uL Nucleated RBCs (0-0) /100 WBC Macrocytosis PT (10.0-12.5) sec INR (<1.2) APTT (22.0-30.0) sec ABG pH 7.13 L* (7.35-7.45) ABG pCO2 (35-45) mmHg ABG pO2 139 H (83-108) mmHg ABG HCO3 12 L (21-25) mmol/L ABG Total CO2 13 L (19-24) mmol/L ABG O2 Saturation 97.7 H (94-97) % ABG Lactic Acid (0.5-1.6) mmol/L VBG pH (7.31-7.41) VBG pCO2 (37-51) mmHg VBG HCO3 (24-28) mmol/L Hemoglobin (13.0-17.5) gm/dL Sodium (137-145) mmol/L Potassium (3.5-5.1) mmol/L Carbon Dioxide (22-30) mmol/L BUN (9-20) mg/dL Creatinine (0.66-1.25) mg/dL Glucose (74-99) mg/dL POC Glucose (mg/dL) 167 H (70-110) mg/dL Calcium (8.4-10.2) mg/dL Total Bilirubin (0.2-1.3) mg/dL AST (17-59) U/L ALT (4-49) U/L Lactate Dehydrogenase (120-246) U/L Total Protein (6.3-8.2) g/dL Albumin (3.5-5.0) g/dL HDL Cholesterol (40.00-60.00) mg/dL 08/07/24 08/07/24 08/07/24 Range/Units 19:30 19:30 19:30 WBC 17.1 H (3.8-10.6) k/uL RBC 3.95 L (4.30-5.90) m/uL Hgb 12.7 L (13.0-17.5) gm/dL Hct (39.0-53.0) % MCV 100.5 H (80.0-100.0) fL Plt Count (150-450) k/uL Neutrophils # 14.9 H (1.3-7.7) k/uL Neutrophils # (Manual) (1.3-7.7) k/uL Monocytes # 1.1 H (0-1.0) k/uL Metamyelocytes # (Man) (0) k/uL Nucleated RBCs (0-0) /100 WBC Macrocytosis PT 17.5 H (10.0-12.5) sec INR 1.7 H (<1.2) APTT >200.0 H* (22.0-30.0) sec ABG pH (7.35-7.45) ABG pCO2 (35-45) mmHg ABG pO2 (83-108) mmHg ABG HCO3 (21-25) mmol/L ABG Total CO2 (19-24) mmol/L ABG O2 Saturation (94-97) % ABG Lactic Acid (0.5-1.6) mmol/L VBG pH (7.31-7.41) VBG pCO2 (37-51) mmHg VBG HCO3 (24-28) mmol/L Hemoglobin (13.0-17.5) gm/dL Sodium 132 L (137-145) mmol/L Potassium 5.2 H (3.5-5.1) mmol/L Carbon Dioxide 10 L (22-30) mmol/L BUN 45 H (9-20) mg/dL Creatinine 2.47 H (0.66-1.25) mg/dL Glucose 166 H (74-99) mg/dL POC Glucose (mg/dL) (70-110) mg/dL Calcium 7.4 L (8.4-10.2) mg/dL Total Bilirubin (0.2-1.3) mg/dL AST (17-59) U/L ALT (4-49) U/L Lactate Dehydrogenase (120-246) U/L Total Protein (6.3-8.2) g/dL Albumin (3.5-5.0) g/dL HDL Cholesterol (40.00-60.00) mg/dL 08/07/24 08/08/24 08/08/24 Range/Units 19:59 00:14 00:28 WBC (3.8-10.6) k/uL RBC (4.30-5.90) m/uL Hgb (13.0-17.5) gm/dL Hct (39.0-53.0) % MCV (80.0-100.0) fL Plt Count (150-450) k/uL Neutrophils # (1.3-7.7) k/uL Neutrophils # (Manual) (1.3-7.7) k/uL Monocytes # (0-1.0) k/uL Metamyelocytes # (Man) (0) k/uL Nucleated RBCs (0-0) /100 WBC Macrocytosis PT (10.0-12.5) sec INR (<1.2) APTT (22.0-30.0) sec ABG pH 7.25 L 6.97 L* (7.35-7.45) ABG pCO2 26 L 32 L (35-45) mmHg ABG pO2 298 H 270 H (83-108) mmHg ABG HCO3 11 L 8 L* (21-25) mmol/L ABG Total CO2 12 L 9 L (19-24) mmol/L ABG O2 Saturation 99.8 H 99.0 H (94-97) % ABG Lactic Acid (0.5-1.6) mmol/L VBG pH (7.31-7.41) VBG pCO2 (37-51) mmHg VBG HCO3 (24-28) mmol/L Hemoglobin 12.9 L 10.9 L (13.0-17.5) gm/dL Sodium (137-145) mmol/L Potassium (3.5-5.1) mmol/L Carbon Dioxide (22-30) mmol/L BUN (9-20) mg/dL Creatinine (0.66-1.25) mg/dL Glucose (74-99) mg/dL POC Glucose (mg/dL) (70-110) mg/dL Calcium (8.4-10.2) mg/dL Total Bilirubin (0.2-1.3) mg/dL AST (17-59) U/L ALT (4-49) U/L Lactate Dehydrogenase 6146 H (120-246) U/L Total Protein (6.3-8.2) g/dL Albumin (3.5-5.0) g/dL HDL Cholesterol (40.00-60.00) mg/dL 08/08/24 08/08/24 08/08/24 Range/Units 00:28 00:28 00:28 WBC (3.8-10.6) k/uL RBC (4.30-5.90) m/uL Hgb (13.0-17.5) gm/dL Hct (39.0-53.0) % MCV (80.0-100.0) fL Plt Count (150-450) k/uL Neutrophils # (1.3-7.7) k/uL Neutrophils # (Manual) (1.3-7.7) k/uL Monocytes # (0-1.0) k/uL Metamyelocytes # (Man) (0) k/uL Nucleated RBCs (0-0) /100 WBC Macrocytosis PT (10.0-12.5) sec INR (<1.2) APTT 147.1 H* (22.0-30.0) sec ABG pH (7.35-7.45) ABG pCO2 (35-45) mmHg ABG pO2 (83-108) mmHg ABG HCO3 (21-25) mmol/L ABG Total CO2 (19-24) mmol/L ABG O2 Saturation (94-97) % ABG Lactic Acid 20.8 H* (0.5-1.6) mmol/L VBG pH (7.31-7.41) VBG pCO2 (37-51) mmHg VBG HCO3 (24-28) mmol/L Hemoglobin (13.0-17.5) gm/dL Sodium (137-145) mmol/L Potassium (3.5-5.1) mmol/L Carbon Dioxide <5 L* (22-30) mmol/L BUN 40 H (9-20) mg/dL Creatinine 3.18 H (0.66-1.25) mg/dL Glucose 109 H (74-99) mg/dL POC Glucose (mg/dL) (70-110) mg/dL Calcium 6.0 L* (8.4-10.2) mg/dL Total Bilirubin 3.9 H (0.2-1.3) mg/dL AST 2480 H (17-59) U/L ALT 3263 H (4-49) U/L Lactate Dehydrogenase (120-246) U/L Total Protein 5.3 L (6.3-8.2) g/dL Albumin 3.2 L (3.5-5.0) g/dL HDL Cholesterol (40.00-60.00) mg/dL 08/08/24 08/08/24 08/08/24 Range/Units 00:35 02:46 02:47 WBC 18.3 H (3.8-10.6) k/uL RBC 3.36 L (4.30-5.90) m/uL Hgb 11.7 L (13.0-17.5) gm/dL Hct 36.3 L (39.0-53.0) % MCV 108.0 H D (80.0-100.0) fL Plt Count 138 L (150-450) k/uL Neutrophils # (1.3-7.7) k/uL Neutrophils # (Manual) 13.50 H (1.3-7.7) k/uL Monocytes # (0-1.0) k/uL Metamyelocytes # (Man) 0.18 H (0) k/uL Nucleated RBCs 3 H (0-0) /100 WBC Macrocytosis Marked A PT (10.0-12.5) sec INR (<1.2) APTT (22.0-30.0) sec ABG pH (7.35-7.45) ABG pCO2 (35-45) mmHg ABG pO2 (83-108) mmHg ABG HCO3 (21-25) mmol/L ABG Total CO2 (19-24) mmol/L ABG O2 Saturation (94-97) % ABG Lactic Acid (0.5-1.6) mmol/L VBG pH 6.89 L* (7.31-7.41) VBG pCO2 31 L (37-51) mmHg VBG HCO3 6 L* (24-28) mmol/L Hemoglobin (13.0-17.5) gm/dL Sodium (137-145) mmol/L Potassium (3.5-5.1) mmol/L Carbon Dioxide (22-30) mmol/L BUN (9-20) mg/dL Creatinine (0.66-1.25) mg/dL Glucose (74-99) mg/dL POC Glucose (mg/dL) 125 H (70-110) mg/dL Calcium (8.4-10.2) mg/dL Total Bilirubin (0.2-1.3) mg/dL AST (17-59) U/L ALT (4-49) U/L Lactate Dehydrogenase (120-246) U/L Total Protein (6.3-8.2) g/dL Albumin (3.5-5.0) g/dL HDL Cholesterol (40.00-60.00) mg/dL 08/08/24 08/08/24 08/08/24 Range/Units 04:50 04:50 04:50 WBC (3.8-10.6) k/uL RBC (4.30-5.90) m/uL Hgb (13.0-17.5) gm/dL Hct (39.0-53.0) % MCV (80.0-100.0) fL Plt Count (150-450) k/uL Neutrophils # (1.3-7.7) k/uL Neutrophils # (Manual) (1.3-7.7) k/uL Monocytes # (0-1.0) k/uL Metamyelocytes # (Man) (0) k/uL Nucleated RBCs (0-0) /100 WBC Macrocytosis PT (10.0-12.5) sec INR (<1.2) APTT 49.1 H (22.0-30.0) sec ABG pH (7.35-7.45) ABG pCO2 (35-45) mmHg ABG pO2 (83-108) mmHg ABG HCO3 (21-25) mmol/L ABG Total CO2 (19-24) mmol/L ABG O2 Saturation (94-97) % ABG Lactic Acid 24.0 H* (0.5-1.6) mmol/L VBG pH (7.31-7.41) VBG pCO2 (37-51) mmHg VBG HCO3 (24-28) mmol/L Hemoglobin (13.0-17.5) gm/dL Sodium 136 L (137-145) mmol/L Potassium 6.0 H (3.5-5.1) mmol/L Carbon Dioxide <5 L* (22-30) mmol/L BUN 40 H (9-20) mg/dL Creatinine 3.81 H (0.66-1.25) mg/dL Glucose 100 H (74-99) mg/dL POC Glucose (mg/dL) (70-110) mg/dL Calcium 6.3 L* (8.4-10.2) mg/dL Total Bilirubin 4.8 H (0.2-1.3) mg/dL AST 6227 H (17-59) U/L ALT 6520 H (4-49) U/L Lactate Dehydrogenase (120-246) U/L Total Protein 5.6 L (6.3-8.2) g/dL Albumin 3.4 L (3.5-5.0) g/dL HDL Cholesterol (40.00-60.00) mg/dL 08/08/24 08/08/24 Range/Units 04:50 05:49 WBC (3.8-10.6) k/uL RBC (4.30-5.90) m/uL Hgb (13.0-17.5) gm/dL Hct (39.0-53.0) % MCV (80.0-100.0) fL Plt Count (150-450) k/uL Neutrophils # (1.3-7.7) k/uL Neutrophils # (Manual) (1.3-7.7) k/uL Monocytes # (0-1.0) k/uL Metamyelocytes # (Man) (0) k/uL Nucleated RBCs (0-0) /100 WBC Macrocytosis PT (10.0-12.5) sec INR (<1.2) APTT (22.0-30.0) sec ABG pH 6.82 L* (7.35-7.45) ABG pCO2 23 L (35-45) mmHg ABG pO2 270 H (83-108) mmHg ABG HCO3 4 L* (21-25) mmol/L ABG Total CO2 4 L (19-24) mmol/L ABG O2 Saturation 98.9 H (94-97) % ABG Lactic Acid (0.5-1.6) mmol/L VBG pH (7.31-7.41) VBG pCO2 (37-51) mmHg VBG HCO3 (24-28) mmol/L Hemoglobin 10.7 L (13.0-17.5) gm/dL Sodium (137-145) mmol/L Potassium (3.5-5.1) mmol/L Carbon Dioxide (22-30) mmol/L BUN (9-20) mg/dL Creatinine (0.66-1.25) mg/dL Glucose (74-99) mg/dL POC Glucose (mg/dL) (70-110) mg/dL Calcium (8.4-10.2) mg/dL Total Bilirubin (0.2-1.3) mg/dL AST (17-59) U/L ALT (4-49) U/L Lactate Dehydrogenase >72575 H (120-246) U/L Total Protein (6.3-8.2) g/dL Albumin (3.5-5.0) g/dL HDL Cholesterol (40.00-60.00) mg/dL Assessment and Plan Plan: Acute V-fib cardiac arrest, downtime was 2 minutes, cardiac arrest was witnessed and the patient received CPR and epinephrine. There was return of spontaneous circulation. Cardiogenic shock, status post cardiac catheterization, status post insertion of an Impella with P8 augmentation. Profound hypotensive and high-dose epinephrine infusion Severe metabolic/lactic acidosis secondary to above Acute kidney injury, the patient is anuric Acute hyperkalemia secondary to above Acute shock liver secondary to above Coronary artery disease with previous anterior wall myocardial infarction and stenting of the LAD CHF with impaired ejection fraction of less than 10% along with moderate to severe mitral regurgitation. I was informed by cardiology that his ejection fraction is less than 5% and the patient has a markedly dilated RV. New onset atrial fibrillation with rapid ventricular response, currently off amiodarone drip and the patient underwent cardioversion his cardiac rhythm is sinus Acute hypoxic respiratory failure secondary to pulmonary edema. Currently intubated on mechanical ventilator Leukocytosis Plan Critically ill 63-year-old male patient with cardiogenic shock and multisystem organ failure. Carries a very very high mortality Patient is currently in respiratory failure, hemodynamic collapse, liver failure and kidney failure. Keep the patient intubated for now. Keep the same ventilator settings Bicarb infusion has been started Keep the patient sedated on propofo and 10 mcg/kg/min Cardiac rhythm is sinus IV heparin Aspirin Nephrology has been involved and the patient is being considered for hemodialysis. I highly doubt that the patient is going to be tolerating this type of procedure. IV Protonix Condition is critical with a poor outcome secondary above-mentioned comorbidities. The patient carries a very high mortality. Strongly advised to establish again CODE STATUS with the family as the patient already sustained a cardiac arrest yesterday with a downtime of around 2 minutes. This evaluation was done more than 30 minutes. Time with Patient: Greater than 30
--- NOTE | 2024-08-08 12:14 | XR ---
EXAMINATION TYPE: XR chest 1V portable DATE OF EXAM: 08/08/2024 COMPARISON: 08/08/2024 HISTORY: Dialysis line placement TECHNIQUE: Single frontal view of the chest is obtained. FINDINGS: There is an interval placement of a right jugular dialysis catheter the tip of which is in the SVC/RA junction. There is no change in the NG tube, [place] catheter or left central line. No change in the LVAD device. There is no change in the retrocardiac opacity. A graft the ET tube is 3.9 cm above the yessenia. IMPRESSION: 1. Right jugular dialysis catheter tip in the SVC/RA junction. ET tube 3.9 cm above the yessenia. 2. No change in the retrocardiac opacity. [facility], Workstation: [email or web address] 08/08/2024 12:11 PM
[2024-08-08] MEDS: SODIUM BICARB 8.4% 50 ML SYR (1 MEQ/ML) IV ONE (12:54)
[2024-08-08] MEDS: DEXTROSE 5% IN WATER 1,000 ML with SODIUM BICARB (1 MEQ/ML) 150 ML IV SCH (12:55)
[2024-08-08 13:54] LABS: HCT 34.6 % (39.0-53.0); HGB 10.4 gm/dL (13.0-17.5); Hypochromasia Marked; MCH 33.2 pg (25.0-35.0); MCHC 30.2 g/dL (31.0-37.0); MCV 109.9 fL (80.0-100.0); Mean Platelet Volume 10.8; RBC 3.15 m/uL (4.30-5.90); RDW 14.8 % (11.5-15.5)
[2024-08-08 13:59] LABS: African American GFR (CKD) 14 (>60 ml/min/1.73 sqM); Albumin 3.3 g/dL (3.5-5.0); Alkaline Phosphatase 80 U/L (38-126); Blood Urea Nitrogen 43 mg/dL (9-20); Chloride 97 mmol/L (98-107); Glucose 224 mg/dL (74-99); Non-African American GFR(CKD) 12 (>60 ml/min/1.73 sqM); Potassium 5.4 mmol/L (3.5-5.1); Sodium 137 mmol/L (137-145); Total Bilirubin 5.9 mg/dL (0.2-1.3); Total Protein 5.5 g/dL (6.3-8.2)
[2024-08-08 14:03] LABS: Calcium 6.2 mg/dL (8.4-10.2)
[2024-08-08 14:04] LABS: ALT 13097 U/L (4-49); AST 14283 U/L (17-59); LDH >10000 U/L (120-246)
[2024-08-08 14:05] LABS: Carbon Dioxide <5 mmol/L (22-30)
[2024-08-08 14:14] LABS: Macrocytosis Marked
--- NOTE | 2024-08-08 14:17 | P.PN ---
Subjective Progress Note Date: 08/08/24 History of present illness; 63-year-old male with a past medical history of hypertension, and OH in 2019 (1 stent to the LAD) presents from [facility] on [address] for CHF exacerbation. Patient states he presented to [facility] yesterday for shortness of breath for the last 2 days. Patient denies chest pain here however upon review of records from [facility] he endorsed substernal chest pain at that time. Patient reports the symptoms are similar to what he felt when he had his initial heart attack in 2019. 08/08/2024 Patient is seen in follow-up today currently in the ICU on mechanical ventilation FiO2 is 65% with a PEEP of 5 and continues on Impella along with sodium bicarb, dopamine, epinephrine, fentanyl, IV heparin, propofol and also amiodarone. Patient continues on Impella and was noted to have significant amount of blood noted in the OG and heparin has been placed on hold. Kidney functions are worsening requiring emergent dialysis catheter which has been placed although unsure how much he will be able to tolerate given low pressures and on pressor support. Multiple family members at the bedside as patient is in critical condition and multiorgan system failure. LFTs are in the 14,000's, bilirubin is 5.9, calcium is 6.2, creatinine today is 4.7, lactic acid is above 24 and pH is 6.82 on arterial blood gas with an elevated white count and hemoglo bin is 11.7. Patient is status post cardiac catheterization with normal coronaries yesterday. Prognosis is extremely poor and CODE STATUS was addressed as he is currently full code. Sister at the bedside awaiting for his son to arrive. Review of systems: Unable to obtain as patient is intubated maintained on sedation Family history: Noncontributory Surgical history: Abdominal surgery as a child for toxin ingestion Social history: Cigarette smoker Initial lab work from the ER was significant for WBC 6.6, hemoglobin 13.7, MCV 97.6, sodium 135, bicarb 19, creatinine 1.06, glucose 183, total bilirubin 2.2, AST 811, ALT 248, alkaline phosphatase 142, troponin 0.295--> 0.201--> 0.232, and TSH 2.5. EKG done in the ER showed heart rate of 145 bpm, no ST segment elevation or depression seen, no T-wave inversions seen. Atrial flutter/tachycardia with RVR ER CXR: Presence of acute cardiopulmonary disease such as CHF. Patient admitted to internal medicine service Active Medications Acetaminophen (Acetaminophen Tab 325 Mg Tab) 650 mg PO Q6HR PRN PRN Reason: Mild Pain or Fever > 100.5 Aspirin (Aspirin 81 Mg) 81 mg PO BID [facility] Last Admin: 08/08/24 08:06 Dose: Not Given Chlorhexidine Gluconate (Chlorhexidine Gluconate 15 Ml Cup) 15 ml MUCOUS MEM BID [facility]AIL Last Admin: 08/08/24 10:00 Dose: Not Given Heparin Sodium (Porcine) (Heparin Sodium 1,000 Un/Ml (10ml Vl)) 0 unit IV PER PROTOCOL PRN; Protocol PRN Reason: Low PTT Last Admin: 08/07/24 13:25 Dose: 2,154.57 unit Heparin Sodium/Sodium Chloride (25,000 unit/ Sodium Chloride) 250 mls @ 9.997 mls/hr IV .Q24H [facility]; Protocol Last Admin: 08/08/24 11:54 Dose: Not Given Diltiazem HCl 125 mg/ Sodium (Chloride) 125 mls @ 5 mls/hr IV .Q24H [facility] Last Admin: 08/08/24 11:55 Dose: Not Given Propofol 1,000 mg/ IV Solution 100 mls @ 7.757 mls/hr IV .[id number] [facility]; Protocol Last Titration: 08/08/24 09:00 Dose: 10 mcg/kg/min, 5.171 mls/hr Norepinephrine Bitartrate 8 mg (/ Sodium Chloride) 258 mls @ 5.003 mls/hr IV .Q24H [facility]; Protocol Last Admin: 08/08/24 11:55 Dose: Not Given Sodium Bicarbonate 12.5 ml/ (Dextrose/Water) 512.5 mls @ 0 mls/hr IV DIRECTED [facility]; Protocol Last Admin: 08/07/24 19:30 Dose: 16 mls/hr Fentanyl Citrate 1,000 mcg/ (Sodium Chloride) 100 mls @ 4.309 mls/hr IV .[id number] [facility]AIL; Protocol Last Admin: 08/07/24 20:42 Dose: 0.5 mcg/kg/hr, 4.309 mls/hr Dopamine HCl/Dextrose 800 mg/ (IV Solution) 250 mls @ 4.04 mls/hr IV .Q24H [facility]; Protocol Last Titration: 08/08/24 00:30 Dose: 0 mcg/kg/min, 0 mls/hr Epinephrine HCl 4 mg/ Dextrose (/Water) 250 mls @ 9.696 mls/hr IV .Q24H [facility]AIL; Protocol Last Admin: 08/08/24 12:00 Dose: 0.26 mcg/kg/min, 84.028 mls/hr Nitroglycerin/Dextrose 50 mg/ (IV Solution) 250 mls @ 1.5 mls/hr IV .Q24H [facility]; Protocol Last Admin: 08/08/24 00:10 Dose: 5 mcg/min, 1.5 mls/hr Sodium Bicarbonate 150 ml/ (Dextrose/Water) 1,150 mls @ 75 mls/hr IV .[id number] [facility] Last Admin: 08/08/24 12:55 Dose: 75 mls/hr Metoprolol Tartrate (Metoprolol Tartrate 25 Mg Tab) 25 mg PO BID [facility] Last Admin: 08/08/24 08:06 Dose: Not Given Naloxone HCl (Naloxone 0.4 Mg/Ml 1 Ml Vial) 0.2 mg IV Q2M PRN PRN Reason: Opioid Reversal Nitroglycerin (Nitroglycerin Sl Tabs 0.4 Mg Tab) 0.4 mg SUBLINGUAL Q5M PRN PRN Reason: Chest Pain Last Admin: 08/07/24 11:14 Dose: 0.4 mg Pantoprazole Sodium (Pantoprazole 40 Mg Tablet) 40 mg PO AC-[id number] [facility] Last Admin: 08/08/24 07:47 Dose: Not Given Tramadol HCl (Tramadol 50 Mg Tab) 50 mg PO Q6H PRN PRN Reason: Moderate Pain (Scale 4 to 6) PHYSICAL EXAMINATION: GENERAL: The patient is alert and oriented x 0 maintained on mechanical ventilation and sedation, FiO2 is 65% with a PEEP of 5, well-developed, obese, critically ill-appearing, elderly appearing HEENT: Pupils are round and equally reacting to light. EOMI. No scleral icterus. No conjunctival pallor. Normocephalic, atraumatic. No pharyngeal erythema. No thyromegaly. CARDIOVASCULAR: S1 and S2 muffled, irregular PULMONARY: Wheezing auscultated bilaterally ABDOMEN: Soft, obese, distended,normoactive bowel sounds. No palpable organomegaly. MUSCULOSKELETAL: No joint swelling or deformity. EXTREMITIES: No cyanosis, clubbing, or pedal edema. NEUROLOGICAL: Unable to assess as patient is maintained on mechanical ve ntilation and sedation SKIN: No rashes. Assessment & Plan: #Atrial fibrillation with RVR, NSTEMI status post cardiac catheterization revealing normal coronary arteries, currently on Impella # Acute V-fib cardiac arrest, ACLS with ROSC # Cardiogenic shock status post cardiac catheterization, remains on pressors # Acute hypoxic respiratory failure requiring mechanical ventilation # Acute kidney injury, possibly ATN, worsening with no urine output, requiring emergent dialysis 08/08/2024 # Acute shock liver, secondary to above #Acute on chronic CHF, EF is less than 10% #Transaminitis: Likely secondary to hepatic congestion #Nonanion gap metabolic acidosis: #History of OH, CAD status post PCI to mid LAD #Essential hypertension #Dyslipidemia # Continued ongoing nicotine abuse, per family quit 3 weeks ago # Obesity with a BMI 31.2 -GI prophylaxis -DVT prophylaxis -Full code Plan: Patient is continued in the ICU with multiple consultations following and critical condition continued on Impella. Patient also requiring emergent dialysis and has just received a dialysis catheter. Not sure of how much he will be able to tolerate given he is maintained on pressor support with an increased rate and overall prognosis is extremely poor at this time. Sister at the bedside and was discussed in detail about overall prognosis, treatment plan at this time, and discussed CODE STATUS. He is currently full code and they are awaiting for his son to arrive. Strongly recommended no code and comfort measures at this time as overall prognosis is extremely poor. The impression and plan of care has been dictated by Beatrice Sharp, Nurse Practitioner as directed. Dr. Henrik MD I have performed a history and examination and MDM of this patient, discussed the same with the dictator, and agree with the dictator's assessment and plan as written ,documented as a scribe. Based on total visit time, I have performed more than 50% of the visit. Objective - Vital Signs Vital signs: Vital Signs Temp 95 F L 08/08/24 00:00 Pulse 62 08/08/24 09:15 Resp 63 H 08/08/24 09:15 BP 84/57 08/07/24 16:44 Pulse Ox 79 L 10/20/24 09:15 FiO2 65 08/08/24 09:02 Intake & Output 08/07/24 08/08/24 08/08/24 18:59 06:59 18:59 Intake Total 610.480 2526.668 49 Output Total 12 0 Balance 128.529 2191.668 49 Weight 98.7 kg Intake: IV 500 609 49 0.9 KVO 220 20 CO/CI 290 20 Pressure bag 99 9 Intake, IV Titration 194.606 654.668 Amount Amiodarone 450 mg In 222.504 Dextrose 5% in Water 250 ml @ 0.5 MG/MIN 16.667 mls/hr IV .Q15H [facility] Rx#: [id number] DOPamine DRIP 800 mg In 7.003 Dextrose/Water 1 250ml. bag @ 2.5 MCG/KG/MIN 4.04 mls/hr IV .Q24H [facility] Rx#: [id number] Diltiazem 125 mg In 58.5 25.417 Sodium Chloride 0.9% 100 ml @ 5 MG/HR 5 mls/hr IV .Q24H [facility] Rx#:[id number] EPINEPHrine 4 mg In 51.547 Dextrose 5% in Water 250 ml @ 0.03 MCG/KG/MIN 9. 696 mls/hr IV .Q24H [facility] Rx#:[id number] Heparin Sod,Pork in 0.45% 136.106 136.006 NaCl 25,000 unit In 0.45 % NaCl 1 250ml.bag @ 11.6 UNITS/KG/HR 9.997 mls/hr IV .Q24H [facility] Rx#: [id number] Norepinephrine 8 mg In 29.823 Sodium Chloride 0.9% 250 ml @ 0.03 MCG/KG/MIN 5. 003 mls/hr IV .Q24H [facility] Rx#:[id number] propofoL 1,000 mg In 182.368 Empty Bag 1 bag @ 15 MCG/ KG/MIN 7.757 mls/hr IV . [id number] [facility] Rx#:[id number] Output: Urine 12 0 Other: Voiding Method Indwelling Catheter ABP, PAP, CO, CI - Last Documented Arterial Blood Pressure 43/32 Pulmonary Artery Pressure 40/18 Cardiac Output 5.9 Cardiac Index 2.9 - Labs CBC & Chem 7: 08/08/24 02:47 08/08/24 08:52 Labs: Abnormal Lab Results - Last 24 Hours (Table) 08/07/24 08/07/24 08/07/24 Range/Units 10:05 13:15 14:05 WBC (3.8-10.6) k/uL RBC (4.30-5.90) m/uL Hgb (13.0-17.5) gm/dL Hct (39.0-53.0) % MCV (80.0-100.0) fL Plt Count (150-450) k/uL Neutrophils # (1.3-7.7) k/uL Neutrophils # (Manual) (1.3-7.7) k/uL Monocytes # (0-1.0) k/uL Metamyelocytes # (Man) (0) k/uL Nucleated RBCs (0-0) /100 WBC Macrocytosis PT (10.0-12.5) sec INR (<1.2) APTT 35.6 H (22.0-30.0) sec ABG pH (7.35-7.45) ABG pCO2 22 L (35-45) mmHg ABG pO2 172 H (83-108) mmHg ABG HCO3 14 L (21-25) mmol/L ABG Total CO2 15 L (19-24) mmol/L ABG O2 Saturation 100.0 H (94-97) % ABG Lactic Acid (0.5-1.6) mmol/L VBG pH (7.31-7.41) VBG pCO2 (37-51) mmHg VBG HCO3 (24-28) mmol/L Hemoglobin (13.0-17.5) gm/dL Sodium 134 L (137-145) mmol/L Potassium (3.5-5.1) mmol/L Carbon Dioxide 15 L (22-30) mmol/L BUN 40 H (9-20) mg/dL Creatinine 1.93 H (0.66-1.25) mg/dL Glucose 134 H (74-99) mg/dL POC Glucose (mg/dL) (70-110) mg/dL Calcium (8.4-10.2) mg/dL Total Bilirubin 2.7 H (0.2-1.3) mg/dL AST 174 H (17-59) U/L ALT 339 H (4-49) U/L Lactate Dehydrogenase (120-246) U/L Total Protein (6.3-8.2) g/dL Albumin (3.5-5.0) g/dL HDL Cholesterol 35.80 L (40.00-60.00) mg/dL 08/07/24 08/07/24 08/07/24 Range/Units 14:05 15:07 19:02 WBC 16.4 H (3.8-10.6) k/uL RBC 4.19 L (4.30-5.90) m/uL Hgb (13.0-17.5) gm/dL Hct (39.0-53.0) % MCV (80.0-100.0) fL Plt Count (150-450) k/uL Neutrophils # 13.4 H (1.3-7.7) k/uL Neutrophils # (Manual) (1.3-7.7) k/uL Monocytes # (0-1.0) k/uL Metamyelocytes # (Man) (0) k/uL Nucleated RBCs (0-0) /100 WBC Macrocytosis PT (10.0-12.5) sec INR (<1.2) APTT (22.0-30.0) sec ABG pH 7.13 L* (7.35-7.45) ABG pCO2 (35-45) mmHg ABG pO2 139 H (83-108) mmHg ABG HCO3 12 L (21-25) mmol/L ABG Total CO2 13 L (19-24) mmol/L ABG O2 Saturation 97.7 H (94-97) % ABG Lactic Acid (0.5-1.6) mmol/L VBG pH (7.31-7.41) VBG pCO2 (37-51) mmHg VBG HCO3 (24-28) mmol/L Hemoglobin (13.0-17.5) gm/dL Sodium (137-145) mmol/L Potassium (3.5-5.1) mmol/L Carbon Dioxide (22-30) mmol/L BUN (9-20) mg/dL Creatinine (0.66-1.25) mg/dL Glucose (74-99) mg/dL POC Glucose (mg/dL) 167 H (70-110) mg/dL Calcium (8.4-10.2) mg/dL Total Bilirubin (0.2-1.3) mg/dL AST (17-59) U/L ALT (4-49) U/L Lactate Dehydrogenase (120-246) U/L Total Protein (6.3-8.2) g/dL Albumin (3.5-5.0) g/dL HDL Cholesterol (40.00-60.00) mg/dL 08/07/24 08/07/24 08/07/24 Range/Units 19:30 19:30 19:30 WBC 17.1 H (3.8-10.6) k/uL RBC 3.95 L (4.30-5.90) m/uL Hgb 12.7 L (13.0-17.5) gm/dL Hct (39.0-53.0) % MCV 100.5 H (80.0-100.0) fL Plt Count (150-450) k/uL Neutrophils # 14.9 H (1.3-7.7) k/uL Neutrophils # (Manual) (1.3-7.7) k/uL Monocytes # 1.1 H (0-1.0) k/uL Metamyelocytes # (Man) (0) k/uL Nucleated RBCs (0-0) /100 WBC Macrocytosis PT 17.5 H (10.0-12.5) sec INR 1.7 H (<1.2) APTT >200.0 H* (22.0-30.0) sec ABG pH (7.35-7.45) ABG pCO2 (35-45) mmHg ABG pO2 (83-108) mmHg ABG HCO3 (21-25) mmol/L ABG Total CO2 (19-24) mmol/L ABG O2 Saturation (94-97) % ABG Lactic Acid (0.5-1.6) mmol/L VBG pH (7.31-7.41) VBG pCO2 (37-51) mmHg VBG HCO3 (24-28) mmol/L Hemoglobin (13.0-17.5) gm/dL Sodium 132 L (137-145) mmol/L Potassium 5.2 H (3.5-5.1) mmol/L Carbon Dioxide 10 L (22-30) mmol/L BUN 45 H (9-20) mg/dL Creatinine 2.47 H (0.66-1.25) mg/dL Glucose 166 H (74-99) mg/dL POC Glucose (mg/dL) (70-110) mg/dL Calcium 7.4 L (8.4-10.2) mg/dL Total Bilirubin (0.2-1.3) mg/dL AST (17-59) U/L ALT (4-49) U/L Lactate Dehydrogenase (120-246) U/L Total Protein (6.3-8.2) g/dL Albumin (3.5-5.0) g/dL HDL Cholesterol (40.00-60.00) mg/dL 08/07/24 08/08/24 08/08/24 Range/Units 19:59 00:14 00:28 WBC (3.8-10.6) k/uL RBC (4.30-5.90) m/uL Hgb (13.0-17.5) gm/dL Hct (39.0-53.0) % MCV (80.0-100.0) fL Plt Count (150-450) k/uL Neutrophils # (1.3-7.7) k/uL Neutrophils # (Manual) (1.3-7.7) k/uL Monocytes # (0-1.0) k/uL Metamyelocytes # (Man) (0) k/uL Nucleated RBCs (0-0) /100 WBC Macrocytosis PT (10.0-12.5) sec INR (<1.2) APTT (22.0-30.0) sec ABG pH 7.25 L 6.97 L* (7.35-7.45) ABG pCO2 26 L 32 L (35-45) mmHg ABG pO2 298 H 270 H (83-108) mmHg ABG HCO3 11 L 8 L* (21-25) mmol/L ABG Total CO2 12 L 9 L (19-24) mmol/L ABG O2 Saturation 99.8 H 99.0 H (94-97) % ABG Lactic Acid (0.5-1.6) mmol/L VBG pH (7.31-7.41) VBG pCO2 (37-51) mmHg VBG HCO3 (24-28) mmol/L Hemoglobin 12.9 L 10.9 L (13.0-17.5) gm/dL Sodium (137-145) mmol/L Potassium (3.5-5.1) mmol/L Carbon Dioxide (22-30) mmol/L BUN (9-20) mg/dL Creatinine (0.66-1.25) mg/dL Glucose (74-99) mg/dL POC Glucose (mg/dL) (70-110) mg/dL Calcium (8.4-10.2) mg/dL Total Bilirubin (0.2-1.3) mg/dL AST (17-59) U/L ALT (4-49) U/L Lactate Dehydrogenase 6146 H (120-246) U/L Total Protein (6.3-8.2) g/dL Albumin (3.5-5.0) g/dL HDL Cholesterol (40.00-60.00) mg/dL 08/08/24 08/08/24 08/08/24 Range/Units 00:28 00:28 00:28 WBC (3.8-10.6) k/uL RBC (4.30-5.90) m/uL Hgb (13.0-17.5) gm/dL Hct (39.0-53.0) % MCV (80.0-100.0) fL Plt Count (150-450) k/uL Neutrophils # (1.3-7.7) k/uL Neutrophils # (Manual) (1.3-7.7) k/uL Monocytes # (0-1.0) k/uL Metamyelocytes # (Man) (0) k/uL Nucleated RBCs (0-0) /100 WBC Macrocytosis PT (10.0-12.5) sec INR (<1.2) APTT 147.1 H* (22.0-30.0) sec ABG pH (7.35-7.45) ABG pCO2 (35-45) mmHg ABG pO2 (83-108) mmHg ABG HCO3 (21-25) mmol/L ABG Total CO2 (19-24) mmol/L ABG O2 Saturation (94-97) % ABG Lactic Acid 20.8 H* (0.5-1.6) mmol/L VBG pH (7.31-7.41) VBG pCO2 (37-51) mmHg VBG HCO3 (24-28) mmol/L Hemoglobin (13.0-17.5) gm/dL Sodium (137-145) mmol/L Potassium (3.5-5.1) mmol/L Carbon Dioxide <5 L* (22-30) mmol/L BUN 40 H (9-20) mg/dL Creatinine 3.18 H (0.66-1.25) mg/dL Glucose 109 H (74-99) mg/dL POC Glucose (mg/dL) (70-110) mg/dL Calcium 6.0 L* (8.4-10.2) mg/dL Total Bilirubin 3.9 H (0.2-1.3) mg/dL AST 2480 H (17-59) U/L ALT 3263 H (4-49) U/L Lactate Dehydrogenase (120-246) U/L Total Protein 5.3 L (6.3-8.2) g/dL Albumin 3.2 L (3.5-5.0) g/dL HDL Cholesterol (40.00-60.00) mg/dL 08/08/24 08/08/24 08/08/24 Range/Units 00:35 02:46 02:47 WBC 18.3 H (3.8-10.6) k/uL RBC 3.36 L (4.30-5.90) m/uL Hgb 11.7 L (13.0-17.5) gm/dL Hct 36.3 L (39.0-53.0) % MCV 108.0 H D (80.0-100.0) fL Plt Count 138 L (150-450) k/uL Neutrophils # (1.3-7.7) k/uL Neutrophils # (Manual) 13.50 H (1.3-7.7) k/uL Monocytes # (0-1.0) k/uL Metamyelocytes # (Man) 0.18 H (0) k/uL Nucleated RBCs 3 H (0-0) /100 WBC Macrocytosis Marked A PT (10.0-12.5) sec INR (<1.2) APTT (22.0-30.0) sec ABG pH (7.35-7.45) ABG pCO2 (35-45) mmHg ABG pO2 (83-108) mmHg ABG HCO3 (21-25) mmol/L ABG Total CO2 (19-24) mmol/L ABG O2 Saturation (94-97) % ABG Lactic Acid (0.5-1.6) mmol/L VBG pH 6.89 L* (7.31-7.41) VBG pCO2 31 L (37-51) mmHg VBG HCO3 6 L* (24-28) mmol/L Hemoglobin (13.0-17.5) gm/dL Sodium (137-145) mmol/L Potassium (3.5-5.1) mmol/L Carbon Dioxide (22-30) mmol/L BUN (9-20) mg/dL Creatinine (0.66-1.25) mg/dL Glucose (74-99) mg/dL POC Glucose (mg/dL) 125 H (70-110) mg/dL Calcium (8.4-10.2) mg/dL Total Bilirubin (0.2-1.3) mg/dL AST (17-59) U/L ALT (4-49) U/L Lactate Dehydrogenase (120-246) U/L Total Protein (6.3-8.2) g/dL Albumin (3.5-5.0) g/dL HDL Cholesterol (40.00-60.00) mg/dL 08/08/24 08/08/24 08/08/24 Range/Units 04:50 04:50 04:50 WBC (3.8-10.6) k/uL RBC (4.30-5.90) m/uL Hgb (13.0-17.5) gm/dL Hct (39.0-53.0) % MCV (80.0-100.0) fL Plt Count (150-450) k/uL Neutrophils # (1.3-7.7) k/uL Neutrophils # (Manual) (1.3-7.7) k/uL Monocytes # (0-1.0) k/uL Metamyelocytes # (Man) (0) k/uL Nucleated RBCs (0-0) /100 WBC Macrocytosis PT (10.0-12.5) sec INR (<1.2) APTT 49.1 H (22.0-30.0) sec ABG pH (7.35-7.45) ABG pCO2 (35-45) mmHg ABG pO2 (83-108) mmHg ABG HCO3 (21-25) mmol/L ABG Total CO2 (19-24) mmol/L ABG O2 Saturation (94-97) % ABG Lactic Acid 24.0 H* (0.5-1.6) mmol/L VBG pH (7.31-7.41) VBG pCO2 (37-51) mmHg VBG HCO3 (24-28) mmol/L Hemoglobin (13.0-17.5) gm/dL Sodium 136 L (137-145) mmol/L Potassium 6.0 H (3.5-5.1) mmol/L Carbon Dioxide <5 L* (22-30) mmol/L BUN 40 H (9-20) mg/dL Creatinine 3.81 H (0.66-1.25) mg/dL Glucose 100 H (74-99) mg/dL POC Glucose (mg/dL) (70-110) mg/dL Calcium 6.3 L* (8.4-10.2) mg/dL Total Bilirubin 4.8 H (0.2-1.3) mg/dL AST 6227 H (17-59) U/L ALT 6520 H (4-49) U/L Lactate Dehydrogenase (120-246) U/L Total Protein 5.6 L (6.3-8.2) g/dL Albumin 3.4 L (3.5-5.0) g/dL HDL Cholesterol (40.00-60.00) mg/dL 08/08/24 08/08/24 Range/Units 04:50 05:49 WBC (3.8-10.6) k/uL RBC (4.30-5.90) m/uL Hgb (13.0-17.5) gm/dL Hct (39.0-53.0) % MCV (80.0-100.0) fL Plt Count (150-450) k/uL Neutrophils # (1.3-7.7) k/uL Neutrophils # (Manual) (1.3-7.7) k/uL Monocytes # (0-1.0) k/uL Metamyelocytes # (Man) (0) k/uL Nucleated RBCs (0-0) /100 WBC Macrocytosis PT (10.0-12.5) sec INR (<1.2) APTT (22.0-30.0) sec ABG pH 6.82 L* (7.35-7.45) ABG pCO2 23 L (35-45) mmHg ABG pO2 270 H (83-108) mmHg ABG HCO3 4 L* (21-25) mmol/L ABG Total CO2 4 L (19-24) mmol/L ABG O2 Saturation 98.9 H (94-97) % ABG Lactic Acid (0.5-1.6) mmol/L VBG pH (7.31-7.41) VBG pCO2 (37-51) mmHg VBG HCO3 (24-28) mmol/L Hemoglobin 10.7 L (13.0-17.5) gm/dL Sodium (137-145) mmol/L Potassium (3.5-5.1) mmol/L Carbon Dioxide (22-30) mmol/L BUN (9-20) mg/dL Creatinine (0.66-1.25) mg/dL Glucose (74-99) mg/dL POC Glucose (mg/dL) (70-110) mg/dL Calcium (8.4-10.2) mg/dL Total Bilirubin (0.2-1.3) mg/dL AST (17-59) U/L ALT (4-49) U/L Lactate Dehydrogenase >45466 H (120-246) U/L Total Protein (6.3-8.2) g/dL Albumin (3.5-5.0) g/dL HDL Cholesterol (40.00-60.00) mg/dL
--- NOTE | 2024-08-08 14:20 | CA ---
Transthoracic Echo Report Name: Becki Ray Age: 63 Gender: M : 1960 Exam Date: 08/08/2024 00:21 Exam Location: [address] [facility] Ht (in): 70 Wt (lb): 190 Ordering Physician: Chu Medellin DO Attending/Referring Phys: Satellite Communications Engineer Xuan Ku RDCS Procedure CPT: Indications: Placement of Left Ventricular Assist Device Cardiac Hx: Impella Technical Quality: Fair Contrast 1: Total Dose (mL): Contrast 2: Total Dose (mL): MEASUREMENTS (Male / Female) Normal Values DOPPLER LVOT Peak Velocity 32.4 cm/s LVOT Peak Gradient 0.4 mmHg LVOT Velocity Time Integral 4.0 cm TR Peak Velocity 232.8 cm/s TR Peak Gradient 21.7 mmHg FINDINGS Left Ventricle Left ventricular ejection fraction is estimated at 10-15 %. Severe left ventricular dilatation. Severely reduced global left ventricular systolic function. Impella device positioned well. Right Ventricle Right Atrium Left Atrium Mitral Valve Aortic Valve Tricuspid Valve Pulmonic Valve Pericardium No pericardial or pleural effusion. Aorta CONCLUSIONS LVEF 10% Dilated LV cavity Impella in appropriate position. Akinetic anteroseptal wall Normal RV size and systolic function Previewed by: Dr Gilles Singh (Electronically Signed) Final Date: 08 August 2024 14:19
[2024-08-08 14:51] LABS: Band Neutrophils % 4 %; Lymphocytes # (M) 3.29 k/uL (1.0-4.8); Metamyelocytes # (M) 0.69 k/uL (0); Metamyelocytes % 4 %; Monocytes # (M) 0.52 k/uL (0-1.0); Myelocytes # (M) 0.52 k/uL (0); Myelocytes % 3 %; Neutrophils % (M) 69 %; Nucleated Red Blood Cells 2 /100 WBC (0-0); Total Cells Counted 200; WBC 17.3 k/uL (3.8-10.6)
[2024-08-08 14:54] LABS: Large Platelets Present; Polychromasia Present
[2024-08-08 14:55] LABS: Platelet Count 90 k/uL (150-450)
[2024-08-08 16:44] VITALS: TEMP 98.9
[2024-08-08 17:45] LABS: ABG Base Excess -26.9 mmol/L; ABG Oxygen Saturation 97.5 % (94-97); ABG PCO2 26 mmHg (35-45); ABG PO2 137 mmHg (83-108); ABG TCO2 6 mmol/L (19-24)
[2024-08-08 17:47] LABS: ABG HCO3 5 mmol/L (21-25); ABG PH 6.88 (7.35-7.45)
[2024-08-08 18:11] LABS: Albumin 3.3 g/dL (3.5-5.0); Blood Urea Nitrogen 44 mg/dL (9-20); Chloride 98 mmol/L (98-107); Glucose 245 mg/dL (74-99); Sodium 134 mmol/L (137-145); Total Bilirubin 5.9 mg/dL (0.2-1.3); Total Protein 5.3 g/dL (6.3-8.2)
[2024-08-08 18:15] LABS: African American GFR (CKD) 15 (>60 ml/min/1.73 sqM); Non-African American GFR(CKD) 13 (>60 ml/min/1.73 sqM)
[2024-08-08 18:19] LABS: ALT 13972 U/L (4-49); Calcium 6.2 mg/dL (8.4-10.2); Carbon Dioxide <5 mmol/L (22-30); LDH >10000 U/L (120-246)
[2024-08-08 18:20] LABS: AST 14971 U/L (17-59); Alkaline Phosphatase 100 U/L (38-126); Potassium 5.9 mmol/L (3.5-5.1)
[2024-08-08 18:55] LABS: Partial Thromboplastin Time 50.2 sec (22.0-30.0)
[2024-08-08] MEDS ORDERED: METOCLOPRAMIDE 5 MG/ML 2 ML VIAL IVP PRN (19:37)
[2024-08-08] MEDS ORDERED: SCOPOLAMINE 1 MG/72 HR PATCH TRANSDERM SCH (19:45)
[2024-08-08] MEDS ORDERED: MORPHINE SULFATE (100 MG/2 ML) 100 MG in SODIUM CHLORIDE 0.9% 100 ML IV SCH (19:45)
[2024-08-08 20:21] VITALS: BP 84/50
[2024-08-08] MEDS: MORPHINE SULFATE 2 MG/ML SYRINGE IV PRN (20:39)
[2024-08-08] MEDS ORDERED: LORazepam 2 MG/ML INJ IV PRN (20:41)
[2024-08-08 21:38] VITALS: PULSE 0; RESP 0
[2024-08-11 09:54] LABS: ABG Base Excess -28.7 mmol/L; ABG Oxygen Saturation 99.3 % (94-97); ABG PO2 370 mmHg (83-108); ABG TCO2 4 mmol/L (19-24); Allen Test Performed? Yes
[2024-08-11 09:55] LABS: ABG HCO3 3 mmol/L (21-25); ABG PCO2 19 mmHg (35-45); ABG PH 6.86 (7.35-7.45)
--- NOTE | 2024-08-11 15:08 | P.DS ---
Providers Date of admission: 08/06/24 15:56 Expected date of discharge: 08/08/24 Attending physician: Scot Ham MD Consults: 08/06/24 15:56 Consult Physician Routine Consulting Provider: Chu Medellin Consult Reason/Comments: A flutter w/ Rvr Do you want consulting provider notified?: Yes, Notify in am 08/07/24 15:51 Consult Physician Routine Consulting Provider: Paulo Carlos Consult Reason/Comments: ICU management Do you want consulting provider notified?: Yes 08/08/24 01:43 Consult Physician Routine Consulting Provider: Mendy Maria Consult Reason/Comments: Anuric ATN, emergent dialysis Do you want consulting provider notified?: Yes 08/08/24 08:32 Consult Physician Routine Consulting Provider: Dharmesh Sauceda Consult Reason/Comments: emergant HD cath Do you want consulting provider notified?: Yes Primary care physician: [facility] Course: Preliminary cause of Congestive heart failure with cardiogenic shock and multisystem organ failure Final diagnosis #Atrial fibrillation with RVR, NSTEMI status post cardiac catheterization revealing normal coronary arteries, requiring Impella # Acute V-fib cardiac arrest, ACLS with ROSC # Cardiogenic shock status post cardiac catheterization, requiring pressors # Acute hypoxic respiratory failure requiring mechanical ventilation # Acute kidney injury, possibly ATN, worsening with no urine output, requiring emergent dialysis 08/08/2024 # Acute shock liver, secondary to above #Acute on chronic CHF, EF is less than 10% #Transaminitis: Likely secondary to hepatic congestion #Nonanion gap metabolic acidosis: #History of MN, CAD status post PCI to mid LAD #Essential hypertension #Dyslipidemia # Continued ongoing nicotine abuse, per family quit 3 weeks ago # Obesity with a BMI 31.2 -GI prophylaxis -DVT prophylaxis -No code Discharge disposition Patient has . According to nursing documentation, time of was 2047 on 08/08/2024. Patient had been determining gleaned with family present on comfort measures. Total time taken is greater than 35 minutes Hospital course This is a 63-year-old male with a past medical history of hypertension, and MN in 2019 (1 stent to the LAD) presents from [facility] on [address] for CHF exacerbation. Patient states he presented to [facility] yesterday for shortness of breath for the last 2 days. Patient denies chest pain here however upon review of records from [facility] he endorsed substernal chest pain at that time. Patient reports the symptoms are similar to what he felt when he had his initial heart attack in 2019. Patient underwent cardiac catheterization and also had acute V-fib with cardiac arrest and ACLS was initiated initially obtaining ROSC and patient was placed on Impella and brought to the ICU in critical condition on mechanical ventilation. 08/08/2024 Patient is seen in follow-up today currently in the ICU on mechanical ventilation FiO2 is 65% with a PEEP of 5 and continues on Impella along with sodium bicarb, dopamine, epinephrine, fentanyl, IV heparin, propofol and also amiodarone. Patient continues on Impella and was noted to have significant amount of blood noted in the OG and heparin has been placed on hold. Kidney functions are worsening requiring emergent dialysis catheter which has been placed although unsure how much he will be able to tolerate given low pressures and on pressor support. Multiple family members at the bedside as patient is in critical condition and multiorgan system failure. LFTs are in the 14,000's, bilirubin is 5.9, calcium is 6.2, creatinine today is 4.7, lactic acid is above 24 and pH is 6.82 on arterial blood gas with an elevated white count and hemoglobin is 11.7. Patient is status post cardiac catheterization with normal coronaries yesterday. Prognosis is extremely poor and CODE STATUS was addressed as he is currently full code. Sister at the bedside awaiting for his son to arrive. Family has later discussed and wanted to proceed with comfort measures and terminally wean. Family present and patient was placed on comfort measures and per nursing documentation at 2047 on 08/08/2024. Please refer to other documentation in ICU documentation for further HPI. Prognosis was extremely poor and this was discussed in detail with family. The impression and plan of care has been dictated by Beatrice Sharp, Nurse Practitioner as directed. Dr. Henrik MD I have performed a history and examination and MDM of this patient, discussed the same with the dictator, and agree with the dictator's assessment and plan as written ,documented as a scribe. Based on total visit time, I have performed more than 50% of the visit. Patient Condition at Discharge: Poor Plan - Discharge Summary Discharge Rx Participant: No New Discharge Prescriptions: No Action Atorvastatin [Lipitor] 80 mg PO HS #90 tab Metoprolol Tartrate [Lopressor] 25 mg PO BID Aspirin EC [Ecotrin Low Dose] 81 mg PO BID Discharge Medication List Atorvastatin [Lipitor] 80 mg PO HS #90 tab 01/31/19 [Rx] Aspirin EC [Ecotrin Low Dose] 81 mg PO BID 08/06/24 [History] Metoprolol Tartrate [Lopressor] 25 mg PO BID 08/06/24 [History] Follow up Appointment(s)/Referral(s): Adam Nicholson MD [Primary Care Provider] - 1-2 days Discharge Disposition: - Preliminary Cause of Preliminary Cause of : Congestive heart failure with cardiogenic shock and multisystem organ failu
== END 2024-08-08 23:35 | disposition expired | DRG 215 ==
LOC: EC 12:17 → 3SCARD 15:56 → 2SICU 08-07 14:58
PROVIDERS: ADMIT Internal Medicine; ATTEND Internal Medicine
PROC: 5A12012 Performance of Cardiac Output, Single, Manual (ICD-10-PCS; 2024-08-06)
PROC: 5A09357 Assistance with Respiratory Ventilation, Less than 24 Consecutive Hours, Continuous Positive Airway Pressure (ICD-10-PCS; 2024-08-06)
PROC: 5A0221D Assistance with Cardiac Output using Impeller Pump, Continuous (ICD-10-PCS; 2024-08-07)
PROC: 0BH17EZ Insertion of Endotracheal Airway into Trachea, Via Natural or Artificial Opening (ICD-10-PCS; 2024-08-07)
PROC: 5A1945Z Respiratory Ventilation, 24-96 Consecutive Hours (ICD-10-PCS; 2024-08-07)
PROC: 03HY32Z Insertion of Monitoring Device into Upper Artery, Percutaneous Approach (ICD-10-PCS; 2024-08-07)
PROC: 4A133B1 Monitoring of Arterial Pressure, Peripheral, Percutaneous Approach (ICD-10-PCS; 2024-08-07)
PROC: 4A133J1 Monitoring of Arterial Pulse, Peripheral, Percutaneous Approach (ICD-10-PCS; 2024-08-07)
PROC: 041L3JQ Bypass Left Femoral Artery to Lower Extremity Artery with Synthetic Substitute, Percutaneous Approach (ICD-10-PCS; 2024-08-07)
PROC: 4A023N6 Measurement of Cardiac Sampling and Pressure, Right Heart, Percutaneous Approach (ICD-10-PCS; 2024-08-07)
PROC: B2111ZZ Fluoroscopy of Multiple Coronary Arteries using Low Osmolar Contrast (ICD-10-PCS; 2024-08-07)
PROC: B41F1ZZ Fluoroscopy of Right Lower Extremity Arteries using Low Osmolar Contrast (ICD-10-PCS; 2024-08-07)
PROC: 02HA3RZ Insertion of Short-term External Heart Assist System into Heart, Percutaneous Approach (ICD-10-PCS; principal; 2024-08-07 16:30)
PROC: 3E033XZ Introduction of Vasopressor into Peripheral Vein, Percutaneous Approach (ICD-10-PCS; 2024-08-07 16:30)
PROC: 02HV33Z Insertion of Infusion Device into Superior Vena Cava, Percutaneous Approach (ICD-10-PCS; 2024-08-08)
DX: I13.0 Hypertensive heart and chronic kidney disease with heart failure and stage 1 through stage 4 chronic kidney disease, or unspecified chronic kidney disease (principal); I50.23 Acute on chronic systolic (congestive) heart failure; I21.A1 Myocardial infarction type 2; N17.0 Acute kidney failure with tubular necrosis; J96.01 Acute respiratory failure with hypoxia; K72.00 Acute and subacute hepatic failure without coma; E87.4 Mixed disorder of acid-base balance; I48.92 Unspecified atrial flutter; I49.01 Ventricular fibrillation; Z66 Do not resuscitate; Z51.5 Encounter for palliative care; I25.2 Old myocardial infarction; E78.5 Hyperlipidemia, unspecified; F17.210 Nicotine dependence, cigarettes, uncomplicated; I25.10 Atherosclerotic heart disease of native coronary artery without angina pectoris; R57.0 Cardiogenic shock; F41.9 Anxiety disorder, unspecified; E66.9 Obesity, unspecified; E87.5 Hyperkalemia; K76.1 Chronic passive congestion of liver; I48.91 Unspecified atrial fibrillation; I25.5 Ischemic cardiomyopathy; N18.9 Chronic kidney disease, unspecified; I46.2 Cardiac arrest due to underlying cardiac condition; I34.0 Nonrheumatic mitral (valve) insufficiency; Z68.31 Body mass index [BMI] 31.0-31.9, adult; Z79.899 Other long term (current) drug therapy; Z91.148 Patient's other noncompliance with medication regimen for other reason; Z95.5 Presence of coronary angioplasty implant and graft
CPT/HCPCS: 31500; 33990; 36415; 36600; 71045; 76705; 80048; 80053; 80061; 82803; 82805; 82810; 83605; 83615; 83735; 83880; 84443; 84484; 85018; 85025; 85384; 85610; 85730; 87070; 87205; 92950; 93005; 93306; 93308; 93460; 94002; 94003; 94660; 96365; 96366; 96367; 96368; 96375; 96376; 99291